=== PATIENT | female | born 1935 | race Caucasian/White ===

== ENCOUNTER 2017-07-26 21:44 | Emergency (ER) | payer MEDICARE, BC ==
[2017-07-26] MEDS ORDERED: Sodium Chloride 0.9% 10 ML Syringe FLUSH PRN (22:20)
[2017-07-26] MEDS ORDERED: Labetalol 100 MG/20 ML MDV IVPUSH ONE ×2 (22:20→23:10)
[2017-07-26] MEDS ORDERED: LORazepam 2 MG/ML MDV IVPUSH ONE (23:10)
[2017-07-26] MEDS ORDERED: Oxymetazoline 0.05% Nasal Spray 15 ML Bottle NAS ONE (23:11)
[2017-07-26] MEDS ORDERED: HYDROmorphone 0.5 MG/0.5 ML Syringe IVPUSH ONE (23:12)
[2017-07-26 23:55] VITALS: BP 145/88
[2017-07-27] MEDS ORDERED: HYDROmorphone 0.5 MG/0.5 ML Syringe IVPUSH ONE (00:14)
--- NOTE | 2017-07-27 00:51 | EDM.PDOC ---
ED HPI GENERAL MEDICAL PROBLEM - General Chief Complaint: ENT Problem Stated Complaint: NOSE BLEED Time Seen by Provider: 07/26/17 22:03 Source of Information: Reports: Patient, RN Notes Reviewed - History of Present Illness INITIAL COMMENTS - FREE TEXT/NARRATIVE: 82-year-old female comes in with severe right nosebleed. This started about 3-1/ 2 hours prior to arrival. Bleeding started on the right side with some backwash to the left as well. She has been unable to stop or control the bleeding at home. She does have history of a lot of major nosebleeds in the past. She states that she did have "surgery" about 3 years ago and since then has not been having much difficulty. She is not on any blood thinners. She does take medication for hypertension. - Related Data Allergies Allergy/AdvReac Type Severity Reaction Status Date / Time amoxicillin [Amoxicillin] Allergy Rash Verified 07/26/17 21:58 codeine Allergy Rash Verified 07/26/17 21:58 [id number]-[id number]-[id number] Reductase Allergy Body Aches Verified 07/26/17 21:58 Inhibitor Home Meds: Home Meds Amitriptyline [Elavil] 10 mg PO BEDTIME 09/27/13 [History] Furosemide [Lasix] 20 mg PO DAILY 09/27/13 [History] Gemfibrozil 600 mg PO BID 09/27/13 [History] Levothyroxine Sodium [Synthroid] 125 mcg PO DAILY 09/27/13 [History] Losartan [Cozaar] 100 mg PO DAILY 09/27/13 [History] Metoprolol Tartrate [Lopressor] 50 mg PO BID 09/27/13 [History] amLODIPine [Norvasc] 5 mg PO DAILY 09/27/13 [History] ALPRAZolam [Xanax] 0.5 mg PO TID 10/08/15 [History] Doxycycline [Vibramycin] 50 mg PO DAILY 10/08/15 [History] oxyCODONE HCl/Acetaminophen [oxyCODONE-Acetaminophen 5-325] 0.5 tab PO Q4HR PRN 10/08/15 [History] Ciclopirox/Ure/Camph/Menth/Euc [Ciclopirox 8% Treatment Kit] 1 applic TOP BID [History] Omeprazole [priLOSEC OTC] 20 mg PO DAILY 07/26/17 [History] oxyCODONE 5 mg PO Q4HR PRN 07/26/17 [History] Cephalexin [IJD: Cephalexin] 500 mg PO .EVERY 8 HOURS #12 cap 07/27/17 [Rx] Past Medical History HEENT History: Reports: Impaired Vision Cardiovascular History: Reports: Hypertension Gastrointestinal History: Reports: 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: Musculoskeletal History: Reports: Arthritis Neurological History: Reports: Headaches, Chronic - Past Surgical History Endocrine Surgical History: Reports: Thyroidectomy Other Musculoskeletal Surgeries/Procedures:: neck fusion c4 and c5 Social & Family History - Tobacco Use Smoking Status *Q: Former Smoker Used Tobacco, but Quit: Yes Month Tobacco Last Used: unk Second Hand Smoke Exposure: No - Caffeine Use Caffeine Use: Reports: Coffee - Alcohol Use Days Per Week of Alcohol Use: 0 Number of Drinks Per Day: 1 Total Drinks Per Week: 0 - Recreational Drug Use Recreational Drug Use: No ED ROS ENT - Review of Systems Review Of Systems: See Below Constitutional: Denies: Fever, Chills HEENT: Reports: Nosebleed. Denies: Throat Pain Respiratory: Denies: Shortness of Breath, Wheezing, Pleuritic Chest Pain Cardiovascular: Denies: Chest Pain GI/Abdominal: Denies: Abdominal Pain, Nausea, Vomiting Musculoskeletal: Reports: No Symptoms Skin: Reports: No Symptoms Neurological: Reports: No Symptoms ED EXAM, ENT - Physical Exam Exam: See Below General Appearance: Anxious, Mild Distress Eye Exam: Bilateral Eye: PERRL Nose: Active Bleeding (Right nares) Mouth/Throat: Other (There is some blood visible posterior pharynx) Head: Atraumatic. No: Facial Swelling Respiratory/Chest: No Respiratory Distress, Lungs Clear, Normal Breath Sounds Cardiovascular: Regular Rate, Rhythm Extremities: Normal Inspection, Normal Range of Motion Neurological: Alert, Oriented, No Motor/Sensory Deficits Skin: Warm, Dry, Normal Color Course - Vital Signs Last Recorded V/S: Last Vital Signs Temp 97.8 F 07/26/17 21:51 Pulse 71 07/26/17 23:54 Resp 97 H 07/26/17 21:51 BP 145/88 H 07/26/17 23:54 Pulse Ox 97 07/26/17 21:51 - Orders/Labs/Meds Orders: Active Orders 24 hr Category Date Time Status Peripheral IV Care [RC] . DIRECTED Care 07/26/17 22:20 Active Peripheral IV Insertion Adult [OM.PC] Stat Oth 07/26/17 22:19 Ordered Meds: Medications Discontinued Medications Generic Name Dose Route Start Last Admin Trade Name Katie PRN Reason Stop Dose Admin Cocaine HCl 4 ml 07/26/17 22:20 07/26/17 22:37 Cocaine Hcl TOP 07/26/17 22:21 4 ml ONETIME ONE Administration Hydromorphone HCl 0.25 mg 07/26/17 23:12 07/26/17 23:22 Dilaudid IVPUSH 07/26/17 23:13 0.25 mg ONETIME ONE Administration Hydromorphone HCl 0.25 mg 07/27/17 00:14 07/27/17 00:19 Dilaudid IVPUSH 07/27/17 00:15 0.25 mg ONETIME ONE Administration Labetalol HCl 20 mg 07/26/17 22:20 07/26/17 22:32 Normodyne IVPUSH 07/26/17 22:21 20 mg ONETIME ONE Administration Protocol Labetalol HCl 20 mg 07/26/17 23:10 07/26/17 23:54 Normodyne IVPUSH 07/26/17 23:11 10 mg ONETIME ONE Administration Protocol Lorazepam 0.25 mg 07/26/17 23:10 07/26/17 23:22 Ativan IVPUSH 07/26/17 23:11 0.25 mg ONETIME ONE Administration Oxymetazoline HCl 5 ml 07/26/17 23:11 07/26/17 23:22 Afrin Original 0.05% Nasal Ayer CARMEN 07/26/17 23:12 1 spray ONETIME ONE Administration Sodium Chloride 10 ml 07/26/17 22:20 07/26/17 22:37 Saline Flush FLUSH 10 ml ASDIRECTED PRN Administration Keep Vein Open - Re-Assessments/Exams Free Text/Narrative Re-Assessment/Exam: 07/27/17 02:26 Blood pressure on arrival was 228/90, subsequent readings as high as well. Therefore she was given labetalol 20 mg IV. Also did take one of her Xanax on arrival. Those meds did help her in that blood pressure did come down into the 140s to 150s systolic. We did work with cotton soaked cocaine solution right nares 2 but that did nothing to slow the bleeding down which did appear to be coming from a more posterior source. Therefore 6.5 cm anterior/posterior nasal balloon was placed. Patient had been also premedicated with 0.25 mg Dilaudid IV and 0.25 mg Ativan IV. This was quite uncomfortable for her initially but then she did start getting more used to that. Blood pressure remained in the 140s to 150s. This plan to leave the balloon in for about 3-1/2 days which will bring her to Monday. It is advised that she return to the ED Monday for removal of the balloon. Discharge instructions as documented. Departure - Departure Time of Disposition: 00:47 Disposition: Home, Self-Care 01 Condition: Fair Clinical Impression: Epistaxis Hypertension Qualifiers: Hypertension type: essential hypertension Qualified Code(s): I10 - Essential ( primary) hypertension - Discharge Information Prescriptions: Cephalexin [IJD: Cephalexin] 500 mg PO .EVERY 8 HOURS #12 cap Instructions: Nosebleed, [id number] Referrals: Janene Kuhn NP [Primary Care Provider] - Forms: ED Department Discharge Additional Instructions: Anterior posterior nasal balloon has been placed to control the bleeding from the right side of your nose. Do not tug or pull on the balloon so as not to dislodge it. Try rest with head elevated above your chest is much as possible. Continue your regular medications. Xanax twice daily recommended to help tolerate the balloon better. oxycodone previously prescribed as needed for discomfort. Cephalexin antibiotic 3 times daily. Start that tomorrow morning and take that through Monday. The balloon should stay in for about 3 days so return to the ED Monday for removal. - My Orders Last 24 Hours: My Active Orders 07/26/17 22:19 Peripheral IV Insertion Adult [OM.PC] Stat 07/26/17 22:20 Peripheral IV Care [RC] . DIRECTED - Assessment/Plan Last 24 Hours: My Active Orders 07/26/17 22:19 Peripheral IV Insertion Adult [OM.PC] Stat 07/26/17 22:20 Peripheral IV Care [RC] . DIRECTED
== END 2017-07-27 01:03 | disposition home or self-care (01) ==
LOC: JD.ED 21:44
DX: R04.0 Epistaxis (principal); I10 Essential (primary) hypertension; K21.9 Gastro-esophageal reflux disease without esophagitis; Z87.891 Personal history of nicotine dependence; Z79.899 Other long term (current) drug therapy; Z79.2 Long term (current) use of antibiotics; Z88.1 Allergy status to other antibiotic agents; Z88.5 Allergy status to narcotic agent; Z88.8 Allergy status to other drugs, medicaments and biological substances
CPT/HCPCS: 30903; 96374; 96375; 96376; 99283-25; A9270-GY; J1170; J2060; J7050

== ENCOUNTER 2017-08-02 07:35 | Emergency (ER) | payer MEDICARE, BC ==
[2017-08-02 07:42] VITALS: BP 190/69
--- NOTE | 2017-08-02 08:59 | EDM.PDOC ---
ED HPI GENERAL MEDICAL PROBLEM - General Chief Complaint: ENT Problem Stated Complaint: NOSEBLEED Time Seen by Provider: 08/02/17 07:47 Source of Information: Reports: Patient History Limitations: Reports: No Limitations - History of Present Illness INITIAL COMMENTS - FREE TEXT/NARRATIVE: The patient presents with a bloody nose. She was seen here last week and a rhino rocket needed to be put in. This morning at 4:30am it started to bleed again. She has had troubles like this before and needed ENT surgery. She is not on any blood thinners. She does have HTN and she took her meds this morning. The bleeding has stopped now. Onset: Sudden Duration: Hour(s): Severity: Moderate Improves with: Reports: None Worsens with: Reports: None Associated Symptoms: Reports: No Other Symptoms - Related Data Allergies Allergy/AdvReac Type Severity Reaction Status Date / Time amoxicillin [Amoxicillin] Allergy Rash Verified 08/02/17 07:42 codeine Allergy Rash Verified 08/02/17 07:42 Gfxktqn-Tuh-Tua Reductase Allergy Body Aches Verified 08/02/17 07:42 Inhibitor Home Meds: Home Meds Amitriptyline [Elavil] 10 mg PO BEDTIME 09/27/13 [History] Furosemide [Lasix] 20 mg PO DAILY 09/27/13 [History] Gemfibrozil 600 mg PO BID 09/27/13 [History] Levothyroxine Sodium [Synthroid] 125 mcg PO DAILY 09/27/13 [History] Losartan [Cozaar] 100 mg PO DAILY 09/27/13 [History] Metoprolol Tartrate [Lopressor] 50 mg PO BID 09/27/13 [History] amLODIPine [Norvasc] 5 mg PO DAILY 09/27/13 [History] ALPRAZolam [Xanax] 0.5 mg PO TID 10/08/15 [History] Doxycycline [Vibramycin] 50 mg PO DAILY 10/08/15 [History] oxyCODONE HCl/Acetaminophen [oxyCODONE-Acetaminophen 5-325] 0.5 tab PO Q4HR PRN 10/08/15 [History] Ciclopirox/Ure/Camph/Menth/Euc [Ciclopirox 8% Treatment Kit] 1 applic TOP BID [History] Omeprazole [priLOSEC OTC] 20 mg PO DAILY 07/26/17 [History] oxyCODONE 5 mg PO Q4HR PRN 07/26/17 [History] Cephalexin [IJD: Cephalexin] 500 mg PO .EVERY 8 HOURS #12 cap 07/27/17 [Rx] Past Medical History HEENT History: Reports: Impaired Vision Cardiovascular History: Reports: Hypertension Gastrointestinal History: Reports: 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: Musculoskeletal History: Reports: Arthritis Neurological History: Reports: Headaches, Chronic - Past Surgical History Endocrine Surgical History: Reports: Thyroidectomy Other Musculoskeletal Surgeries/Procedures:: neck fusion c4 and c5 Social & Family History - Tobacco Use Smoking Status *Q: Never Smoker Used Tobacco, but Quit: Yes Month Tobacco Last Used: unk Second Hand Smoke Exposure: No - Caffeine Use Caffeine Use: Reports: Coffee - Alcohol Use Days Per Week of Alcohol Use: 0 Number of Drinks Per Day: 1 Total Drinks Per Week: 0 - Recreational Drug Use Recreational Drug Use: No ED ROS ENT - Review of Systems Review Of Systems: See Below Constitutional: Reports: No Symptoms HEENT: Reports: Nosebleed Respiratory: Reports: No Symptoms Cardiovascular: Reports: No Symptoms Endocrine: Reports: No Symptoms GI/Abdominal: Reports: No Symptoms : Reports: No Symptoms Musculoskeletal: Reports: No Symptoms ED EXAM, ENT - Physical Exam Exam: See Below Exam Limited By: No Limitations General Appearance: Alert, No Apparent Distress Ears: Normal External Exam Nose: Dried Blood Mouth/Throat: Normal Inspection Head: Atraumatic, Normocephalic Neck: Normal Inspection Respiratory/Chest: No Respiratory Distress ED ENT PROCEDURES - Epistaxis Procedure Indication: Epistaxis Recent anticoagulants/antiplatlets: No Uncontrolled HTN: No Recent septal/nasal surgery: No Site of bleeding: Right Nare Topical Meds: Topical Cocaine Chemical cautery: Silver Nitrate Topical Course - Vital Signs Last Recorded V/S: Last Vital Signs Temp 96.4 F 08/02/17 07:40 Pulse 63 08/02/17 07:40 Resp 16 08/02/17 07:40 BP 190/69 H 08/02/17 07:40 Pulse Ox 96 08/02/17 07:40 - Orders/Labs/Meds Meds: Medications Discontinued Medications Generic Name Dose Route Start Last Admin Trade Name Freq PRN Reason Stop Dose Admin Cocaine HCl 3 ml 08/02/17 07:50 08/02/17 07:55 Cocaine Hcl TOP 08/02/17 07:51 3 ml ONETIME ONE Administration - Re-Assessments/Exams Free Text/Narrative Re-Assessment/Exam: 08/02/17 08:57 There was no active bleeding but there was an area that appears to be the site. I cauterized it and there was no further bleeding. Departure - Departure Time of Disposition: 08:55 Disposition: Home, Self-Care 01 Condition: Good Clinical Impression: Epistaxis - Discharge Information Referrals: Janene Kuhn NP [Primary Care Provider] - Additional Instructions: Use the moisterizer for your nose 2 times per day. Make an appointment for ENT if you continue to have problems. Please return if you are worse.
== END 2017-08-02 09:18 | disposition home or self-care (01) ==
LOC: JD.ED 07:35
DX: R04.0 Epistaxis (principal); I10 Essential (primary) hypertension; Z88.5 Allergy status to narcotic agent; Z88.1 Allergy status to other antibiotic agents; Z79.899 Other long term (current) drug therapy
CPT/HCPCS: 30901; 99282-25; 99283-25

== ENCOUNTER 2017-08-16 21:28 | Emergency (ER) | payer MEDICARE, BC ==
--- NOTE | 2017-08-16 21:44 | EDM.PDOC ---
ED HPI GENERAL MEDICAL PROBLEM - General Chief Complaint: ENT Problem Stated Complaint: bloody nose Time Seen by Provider: 08/16/17 21:43 - History of Present Illness INITIAL COMMENTS - FREE TEXT/NARRATIVE: 82-year-old female presents emergency room with nosebleed. This started roughly 3 hours ago she has not been able to control this at home. Patient is had chronic recurrent problems with her nosebleed she's been in several times recently. She is scheduled to have procedure done this next month and is had a couple of procedures done by ENT in the past. Patient is not on blood thinners she does have hypertension and her blood pressure is elevated at this time. Patient is not having any breathing difficulties or shortness of breath no chest pain chest pressure no nausea no vomiting. - Related Data Allergies Allergy/AdvReac Type Severity Reaction Status Date / Time amoxicillin [Amoxicillin] Allergy Rash Verified 08/16/17 21:38 codeine Allergy Rash Verified 08/16/17 21:38 [id number]-[id number] Reductase Allergy Body Aches Verified 08/16/17 21:38 Inhibitor Home Meds: Home Meds Amitriptyline [Elavil] 10 mg PO BEDTIME 09/27/13 [History] Furosemide [Lasix] 20 mg PO DAILY 09/27/13 [History] Gemfibrozil 600 mg PO BID 09/27/13 [History] Levothyroxine Sodium [Synthroid] 125 mcg PO DAILY 09/27/13 [History] Losartan [Cozaar] 100 mg PO DAILY 09/27/13 [History] Metoprolol Tartrate [Lopressor] 50 mg PO BID 09/27/13 [History] amLODIPine [Norvasc] 5 mg PO DAILY 09/27/13 [History] ALPRAZolam [Xanax] 0.5 mg PO TID 10/08/15 [History] Doxycycline [Vibramycin] 50 mg PO DAILY 10/08/15 [History] oxyCODONE HCl/Acetaminophen [oxyCODONE-Acetaminophen 5-325] 0.5 tab PO Q4HR PRN 10/08/15 [History] Ciclopirox/Ure/Camph/Menth/Euc [Ciclopirox 8% Treatment Kit] 1 applic TOP BID [History] Omeprazole [priLOSEC OTC] 20 mg PO DAILY 07/26/17 [History] oxyCODONE 5 mg PO Q4HR PRN 07/26/17 [History] Cephalexin [IJD: Cephalexin] 500 mg PO .EVERY 8 HOURS #12 cap 07/27/17 [Rx] Past Medical History HEENT History: Reports: Impaired Vision Cardiovascular History: Reports: Hypertension Gastrointestinal History: Reports: 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: Musculoskeletal History: Reports: Arthritis Neurological History: Reports: Headaches, Chronic - Past Surgical History Endocrine Surgical History: Reports: Thyroidectomy Other Musculoskeletal Surgeries/Procedures:: neck fusion c4 and c5 Social & Family History - Tobacco Use Smoking Status *Q: Never Smoker Used Tobacco, but Quit: Yes Month Tobacco Last Used: unk Second Hand Smoke Exposure: No - Caffeine Use Caffeine Use: Reports: Coffee - Alcohol Use Days Per Week of Alcohol Use: 0 Number of Drinks Per Day: 1 Total Drinks Per Week: 0 - Recreational Drug Use Recreational Drug Use: No ED ROS ENT - Review of Systems Review Of Systems: See Below Constitutional: Reports: No Symptoms HEENT: Reports: Nosebleed Respiratory: Reports: No Symptoms Cardiovascular: Reports: No Symptoms GI/Abdominal: Reports: No Symptoms Neurological: Reports: No Symptoms ED EXAM, ENT - Physical Exam Exam: See Below Exam Limited By: No Limitations General Appearance: Alert, No Apparent Distress Eye Exam: Bilateral Eye: Normal Inspection Ears: Normal External Exam, Normal Canal, Hearing Grossly Normal, Normal TMs Nose: Normal Inspection, Normal Mucousa, Other (No active bleeding she has an area that could have been bleeding on her anterior septum on the right side that has a little scab over this area it appears stable at this point no bleeding at this time) Mouth/Throat: Normal Inspection, Normal Gums, Normal Lips, Normal Oropharynx, Normal Teeth, Other (No blood in the posterior pharynx) Head: Atraumatic, Normocephalic Respiratory/Chest: No Respiratory Distress, Lungs Clear, Normal Breath Sounds Cardiovascular: Regular Rate, Rhythm, No Edema, No Murmur Extremities: Normal Inspection, No Pedal Edema Course - Vital Signs Last Recorded V/S: Last Vital Signs Temp 37.0 C 08/16/17 21:36 Pulse 70 08/16/17 22:48 Resp 16 08/16/17 22:48 BP 154/71 H 08/16/17 22:48 Pulse Ox 99 08/16/17 21:36 - Re-Assessments/Exams Free Text/Narrative Re-Assessment/Exam: 08/16/17 22:51 Patient had no acute bleeding by the time I evaluated her. She was watched for some time and continued did not have bleeding she has a potential bleeding site with a scab over it on the right nasal septum anteriorly. She was observed for some time her blood pressure was rechecked and this come down substantially from her admission blood pressure which was a little high. At this point the patient would really like to go home and this is certainly reasonable 08/16/17 22:57 Patient doing well blood pressure has come down she is insistent on going home I will discharge her Departure - Departure Time of Disposition: 22:52 Disposition: Home, Self-Care 01 Clinical Impression: Epistaxis - Discharge Information Referrals: Janene Kuhn NP [Primary Care Provider] - Forms: ED Department Discharge Additional Instructions: Return to emergency room with any questions problems worsening symptoms. Consider taking your losartan at nighttime. See if this helps with her nighttime blood pressure. Follow-up in the clinic later this week for recheck your blood pressure. Follow-up with your doctors appointments as previously scheduled.
[2017-08-16 22:55] VITALS: BP 154/71
== END 2017-08-16 22:57 | disposition home or self-care (01) ==
LOC: JD.ED 21:28
DX: R04.0 Epistaxis (principal); I10 Essential (primary) hypertension; K21.9 Gastro-esophageal reflux disease without esophagitis; Z88.1 Allergy status to other antibiotic agents; Z88.5 Allergy status to narcotic agent; Z88.8 Allergy status to other drugs, medicaments and biological substances; Z79.899 Other long term (current) drug therapy
CPT/HCPCS: 99283

== ENCOUNTER 2017-11-23 10:08 | Emergency (ER) | payer MEDICARE, BC ==
[2017-11-23 10:16] VITALS: BP 159/70
--- NOTE | 2017-11-23 12:07 | EDM.PDOC ---
ED HPI GENERAL MEDICAL PROBLEM - General Chief Complaint: ENT Problem Stated Complaint: NOSEBLEED Time Seen by Provider: 11/23/17 10:17 Source of Information: Reports: Patient History Limitations: Reports: No Limitations - History of Present Illness INITIAL COMMENTS - FREE TEXT/NARRATIVE: The patient presents with epistaxis. She said this started this morning. She had this happen many times before. She had surgery twice. She says her ENT doctor will not do surgery again. She is not on any blood thinners. Onset: Sudden Duration: Hour(s): Improves with: Reports: None Worsens with: Reports: None Associated Symptoms: Reports: No Other Symptoms - Related Data Allergies Allergy/AdvReac Type Severity Reaction Status Date / Time amoxicillin [Amoxicillin] Allergy Rash Verified 11/23/17 10:26 codeine Allergy Rash Verified 11/23/17 10:26 Eaxljxv-Jiv-Xeb Reductase Allergy Body Aches Verified 11/23/17 10:26 Inhibitor Home Meds: Home Meds Amitriptyline [Elavil] 10 mg PO BEDTIME 09/27/13 [History] Furosemide [Lasix] 20 mg PO DAILY 09/27/13 [History] Gemfibrozil 600 mg PO BID 09/27/13 [History] Levothyroxine Sodium [Synthroid] 125 mcg PO DAILY 09/27/13 [History] Losartan [Cozaar] 100 mg PO DAILY 09/27/13 [History] Metoprolol Tartrate [Lopressor] 50 mg PO BID 09/27/13 [History] amLODIPine [Norvasc] 5 mg PO DAILY 09/27/13 [History] ALPRAZolam [Xanax] 0.5 mg PO TID 10/08/15 [History] Doxycycline [Vibramycin] 50 mg PO DAILY 10/08/15 [History] oxyCODONE HCl/Acetaminophen [oxyCODONE-Acetaminophen 5-325] 0.5 tab PO Q4HR PRN 10/08/15 [History] Omeprazole [priLOSEC OTC] 20 mg PO DAILY 07/26/17 [History] Cephalexin [Keflex] 500 mg PO TID #28 capsule 11/23/17 [Rx] Past Medical History HEENT History: Reports: Impaired Vision Cardiovascular History: Reports: Hypertension 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: Musculoskeletal History: Reports: Arthritis Neurological History: Reports: Headaches, Chronic - Past Surgical History Endocrine Surgical History: Reports: Thyroidectomy Other Musculoskeletal Surgeries/Procedures:: neck fusion c4 and c5 Social & Family History - Tobacco Use Smoking Status *Q: Never Smoker Second Hand Smoke Exposure: No - Caffeine Use Caffeine Use: Reports: Coffee - Recreational Drug Use Recreational Drug Use: No ED ROS ENT - Review of Systems Review Of Systems: See Below Constitutional: Reports: No Symptoms HEENT: Reports: Nosebleed Respiratory: Reports: No Symptoms Cardiovascular: Reports: No Symptoms Endocrine: Reports: No Symptoms GI/Abdominal: Reports: No Symptoms : Reports: No Symptoms Musculoskeletal: Reports: No Symptoms ED EXAM, ENT - Physical Exam Exam: See Below Exam Limited By: No Limitations General Appearance: Alert, No Apparent Distress Ears: Normal External Exam Nose: Active Bleeding (Moderate bleeding from the right nare to the anterior septum) Head: Atraumatic, Normocephalic Neck: Normal Inspection Respiratory/Chest: No Respiratory Distress ED ENT PROCEDURES - Epistaxis Procedure Indication: Epistaxis Recent anticoagulants/antiplatlets: No Uncontrolled HTN: No Recent septal/nasal surgery: No Site of bleeding: Right Nare Clearing of clots: Patient Blew Nose, Suction Chemical cautery: Silver Nitrate Topical Anterior Packing: Petrolatum Guaze Strip Course - Vital Signs Last Recorded V/S: Last Vital Signs Temp 98.7 F 11/23/17 10:12 Pulse 67 11/23/17 10:12 Resp 18 11/23/17 10:12 BP 159/70 H 11/23/17 10:12 Pulse Ox 97 11/23/17 10:12 - Re-Assessments/Exams Free Text/Narrative Re-Assessment/Exam: 11/23/17 12:07 I tried to use silver nitrate to control the bleeding but she was bleeding to much. I then packed her nose and it appears to be controlled. Departure - Departure Time of Disposition: 12:10 Disposition: Home, Self-Care 01 Condition: Good Clinical Impression: Epistaxis - Discharge Information Prescriptions: Cephalexin [Keflex] 500 mg PO TID #28 capsule Referrals: Janene Kuhn NP [Primary Care Provider] - Additional Instructions: Leave the packing in for at least 3 days. Take the antibiotic 3 times per day for a week. Please return if you are worse.
== END 2017-11-23 12:36 | disposition home or self-care (01) ==
LOC: JD.ED 10:08
DX: R04.0 Epistaxis (principal); I10 Essential (primary) hypertension; Z79.899 Other long term (current) drug therapy; Z88.1 Allergy status to other antibiotic agents; Z88.5 Allergy status to narcotic agent; Z88.8 Allergy status to other drugs, medicaments and biological substances
CPT/HCPCS: 30901; 30903; 99283; 99283-25

== ENCOUNTER 2017-12-02 19:28 | Emergency (ER) | payer MEDICARE, BC ==
[2017-12-02 19:47] VITALS: BP 188/81
[2017-12-02] MEDS: HYDROmorphone 0.5 MG/0.5 ML SYRINGE IM STA (20:36)
--- NOTE | 2017-12-02 20:46 | EDM.PDOC ---
ED HPI GENERAL MEDICAL PROBLEM - General Chief Complaint: ENT Problem Stated Complaint: BLOODY NOSE SINCE 2PM Time Seen by Provider: 12/02/17 19:39 Source of Information: Reports: Patient History Limitations: Reports: No Limitations - History of Present Illness INITIAL COMMENTS - FREE TEXT/NARRATIVE: The patient presents with right epistaxis. She is status post nasal arterial embolization in 2011 and 2014, but has continued to have nosebleeds, and has been told since that there is nothing further that can be done. She states that she was seen in this ED twice in July, and needed packing both times. She was seen by an ENT in [place], whose name she does not recall, on 11/07/2017, at which time she was told that surgery was not an option due to concerns of stroke. She was prescribed a gel, which she has applied, but states that it has not helped. The patient's PCP is Janene Kuhn. - Related Data Allergies Allergy/AdvReac Type Severity Reaction Status Date / Time amoxicillin [Amoxicillin] Allergy Rash Verified 11/23/17 10:26 codeine Allergy Rash Verified 11/23/17 10:26 Amirupj-Lxh-Fbp Reductase Allergy Body Aches Verified 11/23/17 10:26 Inhibitor Home Meds: Home Meds Amitriptyline [Elavil] 10 mg PO BEDTIME 09/27/13 [History] Furosemide [Lasix] 20 mg PO DAILY 09/27/13 [History] Gemfibrozil 600 mg PO BID 09/27/13 [History] Levothyroxine Sodium [Synthroid] 125 mcg PO DAILY 09/27/13 [History] Losartan [Cozaar] 100 mg PO DAILY 09/27/13 [History] Metoprolol Tartrate [Lopressor] 50 mg PO BID 09/27/13 [History] amLODIPine [Norvasc] 10 mg PO DAILY 09/27/13 [History] ALPRAZolam [Xanax] 0.5 mg PO TID 10/08/15 [History] oxyCODONE HCl/Acetaminophen [oxyCODONE-Acetaminophen 5-325] 0.5 tab PO Q4HR PRN 10/08/15 [History] Omeprazole [priLOSEC OTC] 20 mg PO WEEKLY 07/26/17 [History] Past Medical History HEENT History: Reports: Impaired Vision Cardiovascular History: Reports: Hypertension Gastrointestinal History: Reports: GERD [employer]GUARD History: Reports: Musculoskeletal History: Reports: Arthritis Neurological History: Reports: Headaches, Chronic - Past Surgical History Endocrine Surgical History: Reports: Thyroidectomy Other Musculoskeletal Surgeries/Procedures:: neck fusion c4 and c5 Social & Family History - Tobacco Use Smoking Status *Q: Never Smoker - Caffeine Use Caffeine Use: Reports: Coffee ED ROS ENT - Review of Systems Review Of Systems: ROS reveals no pertinent complaints other than HPI. ED EXAM, ENT - Physical Exam Exam: See Below Exam Limited By: No Limitations General Appearance: Alert, WD/WN Eye Exam: Bilateral Eye: Normal Inspection Ears: Normal External Exam Nose: Active Bleeding (right nostril, posterior, bright red, brisk) Mouth/Throat: Normal Lips Head: Atraumatic, Normocephalic Neck: Normal Inspection, Full Range of Motion Respiratory/Chest: No Respiratory Distress Cardiovascular: Normal Peripheral Pulses, Regular Rate, Rhythm Neurological: Alert, Oriented, No Motor/Sensory Deficits Psychiatric: Normal Affect Skin: Warm, Dry, Intact, Normal Color, No Rash ED ENT PROCEDURES - Epistaxis Procedure Indication: Epistaxis, Uncontrolled Recent anticoagulants/antiplatlets: No Uncontrolled HTN: No Recent septal/nasal surgery: Other (see below) (S/P 2 nasal artery embolization procedures) Site of bleeding: Right Nare, Posterior Clearing of clots: Patient Blew Nose Ice pack to area: No Posterior packing: Long Inflatable Nasal Tampon (7.5 cm RapidRhino) Complications: No Course - Vital Signs Last Recorded V/S: Last Vital Signs Temp 37.4 C 12/02/17 19:43 Pulse 66 12/02/17 19:43 Resp 20 12/02/17 19:43 BP 188/81 H 12/02/17 19:43 Pulse Ox 94 L 12/02/17 19:43 - Orders/Labs/Meds Meds: Medications Discontinued Medications Generic Name Dose Route Start Last Admin Trade Name Freq PRN Reason Stop Dose Admin Hydromorphone HCl 0.5 mg 12/02/17 20:32 12/02/17 20:36 Dilaudid IM 12/02/17 20:33 0.5 mg ONETIME STA Administration - Re-Assessments/Exams Free Text/Narrative Re-Assessment/Exam: 12/02/17 20:29 The patient has what appears to be a right posterior nasal arterial bleed, which will require a balloon. The patient stated that she has had balloons in the past, but that they are very painful when placed, and she asked that she get a pain shot first. That is reasonable, however, the patient also states that she drove herself here. When I explained that she would not be able to receive a narcotic injection and then drive herself home, she stated that it was no big deal, and that the pain shot has hardly any effect. I again explained that that would not be possible. The patient stated that she will call her son to see if he can come and get her. 12/02/17 20:47 The patient's son was willing to come to the ED, therefore I ordered Dilaudid 0.5 mg IM. Several minutes after the patient received the injection, we proceeded with placing a 7.5 cm Rapid Rhino balloon, which the patient tolerated well. I will recheck it in about 10 minutes, as additional air is usually needed to be insufflated. 12/02/17 20:55 Additional air was inflated into the balloon. The bleeding appears to have been successfully stopped. She may return to the ED in 24 hours for balloon removal, or, if she wishes, follow-up with Dr. Saavedra on 12/04/2017. The patient already has oxycodone at home, for pain relief. Departure - Departure Time of Disposition: 21:09 Disposition: Home, Self-Care 01 Condition: Good Clinical Impression: Posterior epistaxis - Discharge Information Instructions: Nosebleed, Adult, [id number] Referrals: Janene Kuhn NP [Primary Care Provider] - Lawrnece Saavedra MD [Ordering Only Provider] - Forms: ED Department Discharge Additional Instructions: You were seen in the emergency room for a recurrent right nosebleed. On examination, your nosebleed was a posterior bleed, arterial. A 7.5 cm Rapid Rhino balloon was placed into your right nostril, successfully stopping the bleeding. You may return to the ER in 24 hours for removal, or follow-up with the ENT Dr. Saavedra, in [place], this coming 12/04/2017. Return to the ER for fever, chills, dizziness or lightheadedness, headache, sore throat, muscle aches, vomiting, diarrhea, or abdominal pain.
== END 2017-12-02 21:38 | disposition home or self-care (01) ==
LOC: JD.ED 19:28
DX: R04.0 Epistaxis (principal); I10 Essential (primary) hypertension; K21.9 Gastro-esophageal reflux disease without esophagitis; Z79.899 Other long term (current) drug therapy
CPT/HCPCS: 30905; 96372; 99283; J1170; 30903; 99282

== ENCOUNTER 2018-11-23 16:49 | Emergency (ER) | payer MEDICARE, BC ==
[2018-11-23 17:24] VITALS: BP 174/74
[2018-11-23] MEDS ORDERED: Sodium Chloride 0.9% 10 ML Syringe FLUSH PRN (17:42)
--- NOTE | 2018-11-23 17:44 | EDM.PDOC ---
ED HPI GENERAL MEDICAL PROBLEM - General Chief Complaint: Neck Problem Stated Complaint: ABNORMAL MRI SENT BY DR OLSON Time Seen by Provider: 11/23/18 17:25 Source of Information: Reports: Patient History Limitations: Reports: No Limitations - History of Present Illness INITIAL COMMENTS - FREE TEXT/NARRATIVE: Patient is a 83-year-old female with a history of severe cervical stenosis infusion to C5 and C6 that took place greater than 10 years ago. She states over the past month she's been experiencing increasing discomfort to the left side of her neck, increased frequency of headaches, and dizzy spells with looking down. She was evaluated by a chiropractor who has utilized acupuncture 2 over the past 2 weeks with no resolution. She states she's been more dizzy since being evaluated by the chiropractor. There were no adjustments made due to her history of cervical spinal stenosis and confusion. She was seen by her PCP to which ordered MRI of the neck and brain. Results came back today with concerns for infection thus patient was instructed to come to the ED for further evaluation. Patient states the headaches are intermittent often relieved with taking the alprazolam and [place]o. Headaches usually start at the base of her skull and wraparound to various parts of her head. They're usually constant. There is no vision changes noted. She has noticed a decreased range of motion with turning her head left. There has been no documented fever, chills , sore throat, ear pain, chest pain, short of breath, cough, or any focal neurological deficits. Neck Pain Score (Numeric/FACES): 7 Headache Pain Score (Numeric/FACES): 7 - Related Data Allergies Allergy/AdvReac Type Severity Reaction Status Date / Time amoxicillin [Amoxicillin] Allergy Rash Verified 07/25/18 08:11 codeine Allergy Rash Verified 07/25/18 08:11 Janeetc-Fkb-Msg Reductase Allergy Body Aches Verified 07/25/18 08:11 Inhibitor Home Meds: Home Meds Amitriptyline [Elavil] 10 mg PO BEDTIME 09/27/13 [History] Furosemide [Lasix] 20 mg PO DAILY 09/27/13 [History] Gemfibrozil 600 mg PO BID 09/27/13 [History] Levothyroxine Sodium [Synthroid] 125 mcg PO DAILY 09/27/13 [History] Losartan [Cozaar] 100 mg PO DAILY 09/27/13 [History] Metoprolol Tartrate [Lopressor] 50 mg PO BID 09/27/13 [History] amLODIPine [Norvasc] 10 mg PO DAILY 09/27/13 [History] ALPRAZolam [Xanax] 0.5 mg PO TID 10/08/15 [History] oxyCODONE HCl/Acetaminophen [oxyCODONE-Acetaminophen 5-325] 0.5 tab PO Q4HR PRN 10/08/15 [History] Omeprazole [priLOSEC OTC] 20 mg PO DAILY 07/26/17 [History] Potassium Chloride [Klor-Con M20] 40 meq PO QAM #10 tab.er 11/23/18 [Rx] Past Medical History HEENT History: Reports: Epistaxis, Impaired Vision Cardiovascular History: Reports: Hypertension Gastrointestinal History: Reports: GERD [employer] CH[employer] INTERN History: Reports: Musculoskeletal History: Reports: Arthritis Neurological History: Reports: Headaches, Chronic Psychiatric History: Reports: Anxiety, Depression Endocrine/Metabolic History: Reports: Hypothyroidism - Past Surgical History HEENT Surgical History: Reports: Other (See Below) Endocrine Surgical History: Reports: Thyroidectomy Neurological Surgical History: Reports: C-Spine Social & Family History - Tobacco Use Smoking Status *Q: Never Smoker - Caffeine Use Caffeine Use: Reports: Coffee, Soda - Recreational Drug Use Recreational Drug Use: No - Living Situation & Occupation Occupation: Retired ED ROS GENERAL - Review of Systems Review Of Systems: ROS reveals no pertinent complaints other than HPI. - Physical Exam Exam: See Below Exam Limited By: No Limitations General Appearance: Alert, WD/WN, No Apparent Distress Eye Exam: Bilateral Eye: EOMI, Nystagmus (None noted), PERRL, Proptosis (None noted) Ears: Normal External Exam, Normal Canal, Hearing Grossly Normal, Normal TMs Nose: Normal Inspection, Normal Mucosa, No Blood Throat/Mouth: Normal Inspection, Normal Oropharynx, Normal Voice, No Airway Compromise Head Exam: Atraumatic, Normocephalic Neck: Normal Inspection, Supple, Tender Lateral (Left lateral along the base of the neck and shoulder. No midline cervical neck pain. Decreased range of motion with turning her head left. Able to him place her chin to the chest with no difficulties.) Respiratory/Chest: No Respiratory Distress, Lungs Clear, Normal Breath Sounds, No Accessory Muscle Use Cardiovascular: Normal Peripheral Pulses, Regular Rate, Rhythm, Systolic Murmur GI/Abdominal: Normal Bowel Sounds, Soft, Non-Tender, No Organomegaly, No Distention Neuro Exam (Abbreviated): Alert, Oriented, CN II-XII Intact, Normal Cognition, No Motor/Sensory Deficits, Other (When looking down patient does become dizzy.) Back Exam: Normal Inspection, Full Range of Motion Extremities: Normal Inspection, Non-Tender, No Pedal Edema Psychiatric: Normal Affect, Normal Mood Skin Exam: Warm, Dry, Intact, Normal Color Course - Vital Signs Last Recorded V/S: Last Vital Signs Temp 98.0 F 11/23/18 17:23 Pulse 65 11/23/18 17:23 Resp 20 11/23/18 17:23 BP 174/74 H 11/23/18 17:23 Pulse Ox 96 11/23/18 17:23 - Orders/Labs/Meds Orders: Active Orders 24 hr Category Date Time Status Peripheral IV Care [RC] . DIRECTED Care 11/23/18 17:42 Active Peripheral IV Insertion Adult [OM.PC] Routine Oth 11/23/18 17:42 Ordered Labs: Laboratory Tests 11/23/18 11/23/18 11/23/18 Range/Units 17:50 17:50 17:50 WBC 5.97 (3.98-10.04) K/mm3 RBC 4.55 (3.98-5.22) M/mm3 Hgb 13.1 (11.2-15.7) gm/L Hct 39.0 (34.1-44.9) % MCV 85.7 D (79.4-94.8) fl MCH 28.8 (25.6-32.2) pg MCHC 33.6 (32.2-35.5) g/dl RDW Std Deviation 48.3 H (36.4-46.3) fL Plt Count 205 (182-369) K/mm3 MPV 10.7 (9.4-12.3) fl Neutrophils % (Manual) 48 (40-60) % Band Neutrophils % 0 (0-10) % Lymphocytes % (Manual) 46 H (20-40) % Atypical Lymphs % 0 % Monocytes % (Manual) 1 L (2-10) % Eosinophils % (Manual) 4 (0.7-5.8) % Basophils % (Manual) 1 (0.1-1.2) Platelet Estimate Adequate Plt Morphology Comment Normal RBC Morph Comment Normal ESR 53 H (0-20) mm/hr Sodium 140 (136-145) mEq/L Potassium 2.8 L (3.5-5.1) mEq/L Chloride 101 (98-107) mEq/L Carbon Dioxide 28 (21-32) mEq/L Anion Gap 13.8 (5-15) BUN 9 (7-18) mg/dL Creatinine 0.8 (0.55-1.02) mg/dL Est Cr Clr Drug Dosing 38.80 mL/min Estimated GFR (MDRD) > 60 (>60) mL/min BUN/Creatinine Ratio 11.3 L (14-18) Glucose 137 H (83-115) mg/dL Calcium 9.2 (8.5-10.1) mg/dL Total Bilirubin 0.5 (0.2-1.0) mg/dL AST 28 (15-37) U/L ALT 26 (14-59) U/L Alkaline Phosphatase 115 (46-116) U/L C-Reactive Protein < 0.2 (<1.0) mg/dL Total Protein 8.0 (6.4-8.2) g/dl Albumin 3.8 (3.4-5.0) g/dl Globulin 4.2 gm/dL Albumin/Globulin Ratio 0.9 L (1-2) Meds: Medications Discontinued Medications Generic Name Dose Route Start Last Admin Trade Name Freq PRN Reason Stop Dose Admin Potassium Chloride 60 meq 11/23/18 18:53 11/23/18 19:04 Potassium Chloride Solution PO 11/23/18 18:54 60 meq ONETIME ONE Administration Sodium Chloride 10 ml 11/23/18 17:42 11/23/18 18:40 Saline Flush FLUSH 10 ml ASDIRECTED PRN Administration Keep Vein Open - Re-Assessments/Exams Free Text/Narrative Re-Assessment/Exam: Reviewed MRI of the neck impression 11/23/2018: Extensive soft tissue edema and inflammatory change in the right lateral paravertebral soft tissues and musculature from C6-T2 extending into posterior intercostal spaces with no definite focal abscess. This does not extend anteriorly at the levels of C7 and T1 in the prevertebral space. Findings could be infectious with phlegmon, posttraumatic, or inflammatory. No evidence of osteomyelitis or discitis. Patient does not have anterior cervical fusion hardware at C5-6. Prominent disc osteophyte complex C5 through 6 with central protrusion indenting the thecal sac and cervical cord with no myopathy. Multilevel mild to moderate neural foraminal narrowing as described in the detail at each level above. Reviewed MRI of the brain 11/23/2018 impression: No acute findings or definite MR explanation for dizziness. 1 cm extra axial lesion about the left parietal lobe most compatible with a meningioma. Currently patient's vital signs are stable. She is afebrile. I will obtain basic labs including CBC, chem 14, ESR, and CRP. Labs reviewed: CBC was essentially normally. CMP indicated a potassium level of 2.8. CRP WNL. ESR 53. Ordered 60 units of potassium po. [address] Bowen Neurosurgeon with [facility]. He did review the images and does not believe with essentially normal labs that any concerns for infection are warranted at this time. This could be a chronic inflammation from her surgery. He recommends interval MRI in 10 days to see if this worsens. If for any reason patient does develop any worsening symptoms the patient needs to be evaluated to determine course of treatment. I did discuss the lab values and also discussion with Dr. Bowen with the patient. She agrees with plan. She voiced her understanding and has no further questions or concerns. Return precautions were discussed with the patient. Departure - Departure Time of Disposition: 18:55 Disposition: Home, Self-Care 01 Condition: Good Clinical Impression: Hypokalemia, Inflammation of soft tissue, Cervical neck pain with evidence of disc disease - Discharge Information Prescriptions: Potassium Chloride [Klor-Con M20] 40 meq PO QAM #10 tab.er Instructions: Hypokalemia, Potassium Content of Foods Referrals: Janene Kuhn NP [Primary Care Provider] - Forms: ED Department Discharge Additional Instructions: Please followup with PCP in the next 3 to 5 days for reevaluation and to repeat blood work to check potassium level. PCP can order repeat MRI of the neck in 10 days to evaluate for any worsening of soft tissue swelling. Please take the potassium supplements as prescribed. Continue taking all home medications as prescribed. Please return to the ED for any new or worsening symptoms. - My Orders Last 24 Hours: My Active Orders 11/23/18 17:42 Peripheral IV Care [RC] . DIRECTED Peripheral IV Insertion Adult [OM.PC] Routine - Assessment/Plan Last 24 Hours: My Active Orders 11/23/18 17:42 Peripheral IV Care [RC] . DIRECTED Peripheral IV Insertion Adult [OM.PC] Routine
[2018-11-23] MEDS ORDERED: Potassium Chloride 10% 20 MEQ/15 ML Soln 15 ML UD Cup PO ONE (18:53)
== END 2018-11-23 19:32 | disposition home or self-care (01) ==
LOC: JD.ED 16:49
DX: M50.90 Cervical disc disorder, unspecified, unspecified cervical region (principal); E87.6 Hypokalemia; L08.9 Local infection of the skin and subcutaneous tissue, unspecified; I10 Essential (primary) hypertension; K21.9 Gastro-esophageal reflux disease without esophagitis; M19.90 Unspecified osteoarthritis, unspecified site; E03.9 Hypothyroidism, unspecified; F41.9 Anxiety disorder, unspecified; F32.9 Major depressive disorder, single episode, unspecified; Z79.899 Other long term (current) drug therapy; Z88.1 Allergy status to other antibiotic agents; Z88.5 Allergy status to narcotic agent; Z88.8 Allergy status to other drugs, medicaments and biological substances
CPT/HCPCS: 36415; 80053; 85007; 85027; 85652; 86140; 99284; A9270; 99283

== ENCOUNTER 2019-11-15 02:15 | Emergency (ER) | payer MEDICARE, BC ==
[2019-11-15] MEDS ORDERED: Metoclopramide 10 MG/2 ML SDV IVPUSH ONE (02:24)
[2019-11-15] MEDS ORDERED: HYDROmorphone 0.5 MG/0.5 ML Syringe IVPUSH ONE (02:24)
[2019-11-15 02:25] VITALS: BP 172/43; PULSE 84
--- NOTE | 2019-11-15 02:26 | EDM.PDOC ---
ED HPI GENERAL MEDICAL PROBLEM - General Chief Complaint: General Stated Complaint: [facility] Time Seen by Provider: 11/15/19 02:21 Source of Information: Reports: Patient, EMS History Limitations: Reports: No Limitations - History of Present Illness INITIAL COMMENTS - FREE TEXT/NARRATIVE: 84-year-old female attends the ED per [facility] complaining of severe left-sided chest pain with a very strong pleuritic component. Patient states that 3 days ago she got tripped up by stepping in a hole that caused her to fall onto her left side. Her left arm and elbow jammed into her left lower ribs. The fall did not the wind out of her. She states she may have hit her head but she has no nausea vomiting since then. Tonight the pain just intensified in her left anterior chest to the point that she cannot sleep and she has splinting respirations. She was started on oxycodone 5/325 mg tabs yesterday for pain relief but finds that they were not helping. She feels abdominally bloated and distended but I think this is secondary to aerophagia as she is breathing fairly fast. Medics did not give her any medication. Onset: Sudden Onset Date: 11/12/19 Onset Time: 14:00 Duration: Day(s):, Getting Worse Location: Reports: Chest (Left anterior lateral chest pain) Quality: Reports: Ache, Sharp, Stabbing ( strong pleuritic pleuritic component) Severity: Severe Improves with: Reports: None (9 and a 10) Worsens with: Reports: Other Context: Reports: Trauma (She got tripped up and fell after stepping in a hole falling on her left side injuring her ribs 3 days ago). Denies: Activity, Exercise (Admit and breathing and coughing make it much worse), Lifting, Sick Contact Associated Symptoms: Reports: No Other Symptoms, Chest Pain, Malaise, Nausea/ Vomiting, Shortness of Breath (Splinting respirations). 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, Other (see below) (Started on oxycodone 10/26/2024 yesterday) Chest Pain Score (Numeric/FACES): 7 - Related Data Allergies Allergy/AdvReac Type Severity Reaction Status Date / Time amoxicillin [Amoxicillin] Allergy Severe Rash Verified 11/15/19 02:25 codeine Allergy Severe Rash Verified 11/15/19 02:25 Qivhnah-Ael-Bpt Reductase Allergy Severe Body Aches Verified 11/15/19 02:25 Inhibitor Home Meds: Home Meds Amitriptyline [Elavil] 10 mg PO BEDTIME 09/27/13 [History] Furosemide [Lasix] 40 mg PO DAILY 09/27/13 [History] Gemfibrozil 600 mg PO BID 09/27/13 [History] Levothyroxine Sodium [Synthroid] 125 mcg PO DAILY 09/27/13 [History] Losartan [Cozaar] 100 mg PO DAILY 09/27/13 [History] Metoprolol Tartrate [Lopressor] 50 mg PO BID 09/27/13 [History] amLODIPine [Norvasc] 10 mg PO DAILY 09/27/13 [History] ALPRAZolam [Xanax] 0.5 mg PO QID 10/08/15 [History] Omeprazole [priLOSEC OTC] 20 mg PO DAILY 07/26/17 [History] Potassium Chloride [Klor-Con M20] 40 meq PO QAM #10 tab.er 11/23/18 [Rx] Denosumab [Prolia] 60 mg .XX ASDIRECTED 11/15/19 [History] oxyCODONE 5 mg PO Q4H PRN 11/15/19 [History] predniSONE [Prednisone] 20 mg PO BID #10 tablet 11/15/19 [Rx] Past Medical History HEENT History: Reports: Epistaxis, Impaired Vision Cardiovascular History: Reports: Hypertension Gastrointestinal History: Reports: GERD 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: Musculoskeletal History: Reports: Arthritis Neurological History: Reports: Headaches, Chronic Psychiatric History: Reports: Anxiety, Depression Endocrine/Metabolic History: Reports: Hypothyroidism, Osteopenia, Osteoporosis - Past Surgical History HEENT Surgical History: Reports: Other (See Below) Endocrine Surgical History: Reports: Thyroidectomy Neurological Surgical History: Reports: C-Spine Social & Family History - Caffeine Use Caffeine Use: Reports: Coffee, Soda - Living Situation & Occupation Occupation: Retired ED ROS GENERAL - Review of Systems Review Of Systems: See Below Constitutional: Reports: Weakness, Fatigue, Decreased Appetite. Denies: Fever, Chills, Malaise HEENT: Reports: Glasses Respiratory: Reports: Shortness of Breath, Pleuritic Chest Pain. Denies: Wheezing, Cough, Sputum, Hemoptysis Cardiovascular: Reports: Chest Pain (Left lateral anterior chest pain since fall 3 days ago. Getting worse over the last 12 hours), Dyspnea on Exertion. Denies: Edema, Lightheadedness, Orthopnea, Palpitations Endocrine: Reports: Fatigue GI/Abdominal: Reports: Abdominal Pain (More of an abdominal bloat pressure discomfort in the epigastrium which I believe is due to aerophagia.) : Reports: Frequency, Incontinence Musculoskeletal: Reports: Shoulder Pain ( These hips neck and back at times), Joint Pain (Both urge and stress components.) Skin: Reports: Bruising Neurological: Reports: No Symptoms Psychiatric: Reports: No Symptoms Hematologic/Lymphatic: Reports: No Symptoms Immunologic: Reports: No Symptoms ED EXAM, GENERAL - Physical Exam Exam: See Below Exam Limited By: No Limitations General Appearance: Alert, Moderate Distress, Other (Peers to be in a good deal of pain. Splinting respirations. Temperature is 37.7 with a heart rate of 84 respiratory was 19 BP elevated 172/43 O2 sats 91% on room air) Eye Exam: Bilateral Eye: Normal Inspection (No blepharal pallor.) Throat/Mouth: Normal Inspection, Normal Lips, Normal Oropharynx Head: Atraumatic, Normocephalic, Other (No outward signs of any head or facial trauma) Neck: Limited Range of Motion, Tender Lateral (She states that she has chronic cervical neck pain with some known). No: Carotid Bruit, Lymphadenopathy (L) ( stenosis with referred pain into both upper extremities worse on the left side.) , Lymphadenopathy (R) Respiratory/Chest: Lungs Clear, Respiratory Distress, Decreased Breath Sounds ( Mild decreased breath sounds to both lower lung ash), Splinting (Moderate respiratory distress with splinting respirations on the left side), Other ( Ecchymoses on the left anterior chest wall rib 5. Very tender to palpation ribs 5678 and 9 in the anterior ). No: Rales, Rhonchi, Wheezing Cardiovascular: Normal Peripheral Pulses (axillary line.), Regular Rate, Rhythm , No Edema, No Gallop, No Murmur, No Rub Peripheral Pulses: 1+: Posterior Tibial (L), Posterior Tibial (R), Dorsalis Pedis (L), Dorsalis Pedis (R), 3+: Carotid (L), Carotid (R) GI/Abdominal: Normal Bowel Sounds, Soft ( due to aerophagia.), Distended (Ended intubated percussion in the epigastrium), Guarding, Tender, Other (Left shoulder tip pain.). No: Rigid (Fairly tender however in the left upper quadrant of the abdomen with mild guarding.), Rebound Back Exam: Normal Inspection, Decreased Range of Motion, Other (Tenderness left posterior lateral ribs without any bruises or abrasions appreciated.). No: CVA Tenderness (L), CVA Tenderness (R) Extremities: Other (Arthritic changes in both hips both knees.) Neurological: Alert, Oriented, CN II-XII Intact, Normal Cognition Psychiatric: Anxious, Other Skin Exam: Warm, Dry (Good deal of pain.), Intact, Normal Color, No Rash EKG INTERPRETATION EKG Date: 11/15/19 Time: 02:29 Rhythm: NSR Rate (Beats/Min): 80 [place]: LAD-Left [place] Deviation P-Wave: Enlarged (-31 degrees biatrial enlargement.) QRS: Other (There is a nonspecific intraventricular conduction delay. There is initial poor R wave progression with late R wave transition. Left ventricular hypertrophy with strain pattern.) QT: Normal EKG Interpretation Comments: Abnormal ECG Course - Vital Signs Last Recorded V/S: Last Vital Signs Temp 37.7 C 11/15/19 02:18 Pulse 84 11/15/19 02:18 Resp 19 11/15/19 02:18 BP 172/43 H 11/15/19 02:18 Pulse Ox 91 L 11/15/19 02:18 - Orders/Labs/Meds Orders: Active Orders 24 hr Category Date Time Status EKG Documentation Completion [RC] STAT Care 11/15/19 02:21 Active Chest wo Cont [CT] Stat Exams 11/15/19 02:22 Taken Sodium Chloride 0.9% [Normal Saline] 1,000 ml Med 11/15/19 02:30 Active IV ASDIRECTED dexAMETHasone Med 11/15/19 04:01 Once 8 mg PO ONETIME ONE Medication Orders Sodium Chloride (Normal Saline) 1,000 mls @ 100 mls/hr IV ASDIRECTED JERMAIN Last Admin: 11/15/19 02:35 Dose: 100 mls/hr Labs: Laboratory Tests 11/15/19 11/15/19 11/15/19 Range/Units 02:30 02:30 02:30 WBC 12.49 H (3.98-10.04) K/mm3 RBC 4.34 (3.98-5.22) M/mm3 Hgb 12.9 (11.2-15.7) gm/dl Hct 39.4 (34.1-44.9) % MCV 90.8 D (79.4-94.8) fl MCH 29.7 (25.6-32.2) pg MCHC 32.7 (32.2-35.5) g/dl RDW Std Deviation 44.7 (36.4-46.3) fL Plt Count 359 D (182-369) K/mm3 MPV 10.2 (9.4-12.3) fl Neut % (Auto) 75.0 H (34.0-71.1) % Lymph % (Auto) 13.0 L (19.3-51.7) % Bertie % (Auto) 9.4 (4.7-12.5) % Eos % (Auto) 2.1 (0.7-5.8) Baso % (Auto) 0.2 (0.1-1.2) % Neut # (Auto) 9.38 H (1.56-6.13) K/mm3 Lymph # (Auto) 1.62 (1.18-3.74) K/mm3 Bertie # (Auto) 1.17 H (0.24-0.36) K/mm3 Eos # (Auto) 0.26 (0.04-0.36) K/mm3 Baso # (Auto) 0.02 (0.01-0.08) K/mm3 Manual Slide Review Abnormal smear PT 10.9 (9.7-12.0) SECONDS INR 1.00 APTT 33 H (22-31) SECONDS Sodium 136 (136-145) mEq/L Potassium 3.4 L (3.5-5.1) mEq/L Chloride 97 L (98-107) mEq/L Carbon Dioxide 29 (21-32) mEq/L Anion Gap 13.4 (5-15) BUN 12 (7-18) mg/dL Creatinine 0.9 (0.55-1.02) mg/dL Est Cr Clr Drug Dosing 32.23 mL/min Estimated GFR (MDRD) 59 (>60) mL/min BUN/Creatinine Ratio 13.3 L (14-18) Glucose 127 H (83-115) mg/dL Calcium 9.6 (8.5-10.1) mg/dL Magnesium 1.7 L (1.8-2.4) mg/dl Total Bilirubin 0.6 (0.2-1.0) mg/dL AST 19 (15-37) U/L ALT 34 (14-59) U/L Alkaline Phosphatase 146 H (46-116) U/L CK-MB (CK-2) < 0.5 (0-3.6) ng/ml Troponin I < 0.017 (0.00-0.056) ng/mL C-Reactive Protein 0.9 (<1.0) mg/dL NT-Pro-B Natriuret Pep (0-450) pg/mL Total Protein 8.6 H (6.4-8.2) g/dl Albumin 4.0 (3.4-5.0) g/dl Globulin 4.6 gm/dL Albumin/Globulin Ratio 0.9 L (1-2) 11/15/19 Range/Units 02:30 WBC (3.98-10.04) K/mm3 RBC (3.98-5.22) M/mm3 Hgb (11.2-15.7) gm/dl Hct (34.1-44.9) % MCV (79.4-94.8) fl MCH (25.6-32.2) pg MCHC (32.2-35.5) g/dl RDW Std Deviation (36.4-46.3) fL Plt Count (182-369) K/mm3 MPV (9.4-12.3) fl Neut % (Auto) (34.0-71.1) % Lymph % (Auto) (19.3-51.7) % Bertie % (Auto) (4.7-12.5) % Eos % (Auto) (0.7-5.8) Baso % (Auto) (0.1-1.2) % Neut # (Auto) (1.56-6.13) K/mm3 Lymph # (Auto) (1.18-3.74) K/mm3 Bertie # (Auto) (0.24-0.36) K/mm3 Eos # (Auto) (0.04-0.36) K/mm3 Baso # (Auto) (0.01-0.08) K/mm3 Manual Slide Review PT (9.7-12.0) SECONDS INR APTT (22-31) SECONDS Sodium (136-145) mEq/L Potassium (3.5-5.1) mEq/L Chloride (98-107) mEq/L Carbon Dioxide (21-32) mEq/L Anion Gap (5-15) BUN (7-18) mg/dL Creatinine (0.55-1.02) mg/dL Est Cr Clr Drug Dosing mL/min Estimated GFR (MDRD) (>60) mL/min BUN/Creatinine Ratio (14-18) Glucose (83-115) mg/dL Calcium (8.5-10.1) mg/dL Magnesium (1.8-2.4) mg/dl Total Bilirubin (0.2-1.0) mg/dL AST (15-37) U/L ALT (14-59) U/L Alkaline Phosphatase (46-116) U/L CK-MB (CK-2) (0-3.6) ng/ml Troponin I (0.00-0.056) ng/mL C-Reactive Protein (<1.0) mg/dL NT-Pro-B Natriuret Pep 141 (0-450) pg/mL Total Protein (6.4-8.2) g/dl Albumin (3.4-5.0) g/dl Globulin gm/dL Albumin/Globulin Ratio (1-2) Meds: Medications Generic Name Dose Route Start Last Admin Trade Name Freq PRN Reason Stop Dose Admin Sodium Chloride 1,000 mls @ 100 mls/hr 11/15/19 02:30 11/15/19 02:35 Normal Saline IV 100 mls/hr ASDIRECTED JERMAIN Administration Discontinued Medications Generic Name Dose Route Start Last Admin Trade Name Freq PRN Reason Stop Dose Admin Hydromorphone HCl 0.5 mg 11/15/19 02:24 11/15/19 02:38 Dilaudid IVPUSH 11/15/19 02:25 0.5 mg ONETIME ONE Administration Metoclopramide HCl 5 mg 11/15/19 02:24 11/15/19 02:36 Reglan IVPUSH 11/15/19 02:25 5 mg ONETIME ONE Administration - Radiology Interpretation Free Text/Narrative:: 84-year-old female presents to the ED per [facility] due to severe left -sided chest pain. Head is very strong pleuritic component to the pain. She reports falling 3 days ago landing hard on the left side of her chest with her elbow coming him and hitting her in the ribs. And knocked the wind out of her. She states she stepped in a hole in the asphalt causing her to fall. Since that time she has had left rib pain but it is intensified immensely over the last 6 hours. Has any cough or sputum production denies any hemoptysis. Air entry is equal to both lung ash. No subcutaneous emphysema is palpable crepitus is slightly palpable ribs 5 ,6 and 7 left chest wall. Plan normal saline 100 mils per hour. Reglan 5 mg IV with Dilaudid 0.5 mg IV for pain relief. She will have CT of the chest so that I can visualize his spleen and kidney on the left side as well. She is also terribly osteopenic and fractured ribs will be difficult to see with normal films. Teen labs including cardiac markers to be done. - Re-Assessments/Exams Free Text/Narrative Re-Assessment/Exam: 11/15/19 03:17 Labs reveal an elevated white count of 12.49 with 75% neutrophils. Slide shows slight toxic granulation present in the neutrophils with less than 5% bands. It shows adequate and moderate large platelets as well. Hemoglobin is 12.9 with hematocrit of 39.4. MCV is 90.8.. Platelets are 3 and 59,000. PT is 10.9 with an INR of 1.0. PTT is 33. BNP is 141 11/15/19 03:29 Sodium is 136 with potassium slightly low at 3.4. Chloride 97 with a bicarb of 29. Anion gap is 13.4. BUN is 12. Creatinine is 0.9. GFR is greater than 59. Glucose 127 with a calcium of 9.6. Magnesium slightly low at 1.7. Liver function is normal. Alk phosphatase 146 slightly elevated CK-MB is less than 0.5 troponin I is less than 0.017. C-reactive protein is 0.9. BNP is 141. Total protein is 8.6 slightly elevated with an albumin fraction of 4.0. 11/15/19 03:29 CT chest completed without contrast. It reveals no pneumothorax and no hemothorax or pulmonary contusions. No rib fractures are identified. Cardiac silhouette is slightly enlarged. There is calcification in the aorta. Slight aneurysmal dilatation of the thoracic aorta less than 3 cm. Portions of the upper abdomen are visualized. Small hiatal hernia appreciated. Homogeneous liver with any without any intraductal dilatation. Gallbladder contains numerous small gallstones. Spleen and kidney on the left side appear to be within normal limits. Again no reason for pleuritic chest pain other than recent fall and contusion. Appears to be secondary to inflammation without any hemothorax. Cussed the findings with the patient. I am going to try and reduce her inflammation with steroids. Dexamethasone 8 mg will be given through the ED tonight. Then she be placed on prednisone 20 mg twice daily for the next 6 days. Uses oxycodone 5/325 mg almost every 4 hours due to his her severe cervical neck pain with spinal stenosis. Departure - Departure Time of Disposition: 04:04 Disposition: Home, Self-Care 01 Condition: Fair Clinical Impression: Contusion of chest wall with intact skin, Pleurisy, Cervical neck pain with evidence of disc disease - Discharge Information *PRESCRIPTION DRUG MONITORING PROGRAM REVIEWED*: Not Applicable *COPY OF PRESCRIPTION DRUG MONITORING REPORT IN PATIENT GUILLERMINA: Not Applicable Prescriptions: predniSONE [Prednisone] 20 mg PO BID #10 tablet Instructions: Rib Contusion, Pleurisy, Shop-hp-Tlms Referrals: Janene Kuhn NP [Primary Care Provider] - Forms: ED Department Discharge Sepsis Event Note - Focused Exam Vital Signs: Vital Signs Temp Pulse Resp BP Pulse Ox 11/15/19 02:18 37.7 C 84 19 172/43 H 91 L Date Exam was Performed: 11/15/19 Time Exam was Performed: 04:02 - My Orders Last 24 Hours: My Active Orders 11/15/19 02:21 EKG Documentation Completion [RC] STAT 11/15/19 02:22 Chest wo Cont [CT] Stat 11/15/19 02:30 Sodium Chloride 0.9% [Normal Saline] 1,000 ml IV ASDIRECTED 11/15/19 04:01 dexAMETHasone 8 mg PO ONETIME ONE - Assessment/Plan Last 24 Hours: My Active Orders 11/15/19 02:21 EKG Documentation Completion [RC] STAT 11/15/19 02:22 Chest wo Cont [CT] Stat 11/15/19 02:30 Sodium Chloride 0.9% [Normal Saline] 1,000 ml IV ASDIRECTED 11/15/19 04:01 dexAMETHasone 8 mg PO ONETIME ONE
[2019-11-15] MEDS ORDERED: Sodium Chloride 0.9% 1,000 ML IV SCH (02:30)
[2019-11-15] MEDS ORDERED: Dexamethasone 4 MG Tab PO ONE (04:01)
--- NOTE | 2019-11-15 09:54 | CT ---
CT chest Technique: Multiple axial sections were obtained from above the dome of the diaphragm inferiorly through the lung bases. Intravenous contrast was not utilized. Comparison: Prior chest x-ray of 05/18/15 is available. Findings: Several calcified gallstones are seen within the gallbladder. No pericardial thickening is seen. Minimal coronary artery calcification is seen. Atherosclerotic calcification seen within the thoracic aorta. No aneurysm is seen. Mediastinum shows no adenopathy or hematoma. No axillary adenopathy is seen. Slight increased density is seen within both lung bases most likely due to atelectasis. No acute pulmonary contusions are seen. No pleural effusions or pneumothorax is appreciated. Bone window settings were reviewed. Scattered degenerative change noted within the spine and within the left shoulder as well as within the right acromioclavicular joint. No acute osseous finding is appreciated. Previous cervical spine surgery is noted. Impression: 1. Mild bibasilar atelectasis. Other findings believed to be chronic as noted above. 2. No acute abnormality is appreciated on noncontrast CT study of the chest. 3. Calcified gallstones within the gallbladder. Diagnostic code #2 This report was dictated in MDT I agree with preliminary report from [facility], finalized on 11/15/19, 4:38 AM Central Daylight Time
== END 2019-11-15 04:25 | disposition home or self-care (01) ==
LOC: JD.ED 02:15
DX: S20.212A Contusion of left front wall of thorax, initial encounter (principal); M50.90 Cervical disc disorder, unspecified, unspecified cervical region; I10 Essential (primary) hypertension; K21.9 Gastro-esophageal reflux disease without esophagitis; F41.9 Anxiety disorder, unspecified; E03.9 Hypothyroidism, unspecified; Z79.899 Other long term (current) drug therapy; Z88.1 Allergy status to other antibiotic agents; Z88.5 Allergy status to narcotic agent; Z88.8 Allergy status to other drugs, medicaments and biological substances; W01.0XXA Fall on same level from slipping, tripping and stumbling without subsequent striking against object, initial encounter
CPT/HCPCS: 36415; 71250; 80053; 82553; 83735; 83880; 84484; 85025; 85610; 85730; 86140; 93005; 96374; 96375; 99285; J1170; J2765; J7030; J8540; 93010; 99284

== ENCOUNTER 2020-05-25 07:02 | Inpatient (IN) | payer MEDICARE, BC ==
[~2020-05-25 07:02] MED LIST: Lactated Ringers 1,000 ML IV SCH; Lidocaine 1% 4 ML ONE; Lidocaine 1%/Sod Bicarbonate in NS 8.4% 1 ML Syringe IDERM PRN; Propofol 200 MG/20 ML SDV ONE; Rocuronium 50 MG/5 ML Vial ONE; Sodium Chloride 0.9% 10 ML Syringe FLUSH PRN; fentaNYL 250 MCG/5 ML SDV ONE
[2020-05-25] MEDS ORDERED: Lidocaine 1% with EPINEPHrine 1:100,000 20 ML MDV ONE ×2 (07:16→09:07)
--- NOTE | 2020-05-25 07:32 | PCM.PREANE ---
Preanesthetic Assessment - Anesthesia/Transfusion/Family Hx Anesthesia History: Prior Anesthesia Without Reaction Family History of Anesthesia Reaction: No Transfusion History: Prior Transfusion Without Reaction - Review of Systems General: No Symptoms Pulmonary: Shortness of Breath Cardiovascular: No Symptoms Gastrointestinal: Abdominal Pain Neurological: No Symptoms Other: Reports: Diabetes (BS 95 pt states feels ok with that BS has had no appetite lately) - Physical Assessment NPO Status Date: 05/24/20 NPO Status Time: 18:00 ASA Class: 3 Mental Status: Alert & Oriented x3 Airway Class: Mallampati = 2 Dentition: Reports: Dentures (upper) Thyro-Mental Finger Breadths: 3 Mouth Opening Finger Breadths: 3 ROM/Head Extension: Full Lungs: Clear to Auscultation, Normal Respiratory Effort Cardiovascular: Regular Rate, Regular Rhythm - Allergies Allergies/Adverse Reactions: Allergies Allergy/AdvReac Type Severity Reaction Status Date / Time amoxicillin [Amoxicillin] Allergy Severe Rash Verified 05/20/20 08:56 codeine Allergy Severe Rash Verified 05/20/20 08:56 Esfyqrb-Tsz-Dbj Reductase Allergy Severe Body Aches Verified 05/20/20 08:56 Inhibitor - Anesthesia Plan Beta Kostas: Metoprolol Med Last Dose Date: 05/25/20 Med Last Dose Time: 05:30 - Acknowledgements Anesthesia Type Planned: General Anesthesia Pt an Appropriate Candidate for the Planned Anesthesia: Yes Alternatives and Risks of Anesthesia Discussed w Pt/Guardian: Yes Pt/Guardian Understands and Agrees with Anesthesia Plan: Yes PreAnesthesia Questionnaire HEENT History: Reports: Cataract, Epistaxis Cardiovascular History: Reports: Angina, Congenital Septal Defect, High Cholesterol, Hypertension, SOB on Exertion Respiratory History: Reports: SOB, Other (See Below) Other Respiratory History: Plueurisy Gastrointestinal History: Reports: GERD, Hemorrhoids, Irritable Bowel Syndrome, Other (See Below) Other Gastrointestinal History: gastric ulcer Genitourinary History: Reports: Other (See Below) Other Genitourinary History: renal artery stenosis, CKD II, acute kidney injury 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 Psychiatric History: Reports: Anxiety, Depression Endocrine/Metabolic History: Reports: Diabetes, Type II, Hyperparathyroidism Hematologic History: Reports: Anemia, B12 Deficiency, Other (See Below) Other Hematologic History: hypercalcemia Dermatologic History: Reports: Other (See Below) Other Dermatologic History: soft tissue disorder - Past Surgical History HEENT Surgical History: Reports: Cataract Surgery Other HEENT Surgeries/Procedures: sinus surgery GI Surgical History: Reports: Other (See Below) Other GI Surgeries/Procedures: hemorrhoidectomy Neurological Surgical History: Reports: Spinal Fusion Musculoskeletal Surgical History: Reports: Knee Replacement - SUBSTANCE USE Tobacco Use Status *Q: Former Tobacco User Recreational Drug Use History: No - HOME MEDS Home Medications: Home Meds Amitriptyline [Elavil] 10 mg PO BEDTIME 09/27/13 [History] Gemfibrozil 600 mg PO DAILY 09/27/13 [History] Levothyroxine Sodium [Synthroid] 125 mcg PO DAILY 09/27/13 [History] Losartan [Cozaar] 100 mg PO DAILY 09/27/13 [History] Metoprolol Tartrate [Lopressor] 50 mg PO BID 09/27/13 [History] amLODIPine [Norvasc] 10 mg PO DAILY 09/27/13 [History] ALPRAZolam [Xanax] 0.5 mg PO QID PRN 10/08/15 [History] Omeprazole [priLOSEC OTC] 20 mg PO DAILY PRN 07/26/17 [History] Denosumab [Prolia] 60 mg .XX ASDIRECTED 11/15/19 [History] oxyCODONE 5 mg PO Q4H 11/15/19 [History] Albuterol Sulfate [Albuterol Sulfate Hfa] 1 puff INH ASDIRECTED PRN 05/20/20 [History] - CURRENT (IN HOUSE) MEDS Current Meds: Current Medications Lactated Ringer's (Ringers, Lactated) 1,000 mls @ 125 mls/hr IV ASDIRECTED JERMAIN Stop: 05/25/20 23:00 Lidocaine/Sodium Bicarbonate (Buffered Lidocaine 1% In Ns 8.4%) 0.25 ml IDERM ONETIME PRN PRN Reason: Prior to IV Start Stop: 05/25/20 23:00 Sodium Chloride (Saline Flush) 10 ml FLUSH ASDIRECTED PRN PRN Reason: Keep Vein Open Stop: 05/25/20 18:00 Discontinued Medications Fentanyl (Sublimaze) Confirm Administered Dose 250 mcg .ROUTE .STK-MED ONE Stop: 05/25/20 07:02 Lidocaine HCl (Xylocaine-Mpf 1%) Confirm Administered Dose 4 mls @ as directed .ROUTE .STK-MED ONE Stop: 05/25/20 07:01 Lidocaine/Epinephrine (Xylocaine 1% With Epinephrine 1:100,000) Confirm Administered Dose 20 ml .ROUTE .STK-MED ONE Stop: 05/25/20 07:17 Propofol (Diprivan 20 Ml) Confirm Administered Dose 200 mg .ROUTE .STK-MED ONE Stop: 05/25/20 07:00 Rocuronium [place] (Zemuron) Confirm Administered Dose 50 mg .ROUTE .STK-MED ONE Stop: 05/25/20 07:01
[2020-05-25] MEDS ORDERED: ceFAZolin 1 GM Vial ONE (08:01)
[2020-05-25] MEDS ORDERED: Lactated Ringers 1,000 ML ONE (09:30)
--- NOTE | 2020-05-25 11:36 | PCM.POSTAN ---
POST ANESTHESIA ASSESSMENT - MENTAL STATUS Mental Status: Alert, Oriented - VITAL SIGNS Vital Signs: Last Vital Signs Temp 36.2 C 05/25/20 11:27 Pulse 63 05/25/20 07:15 Resp 25 H 05/25/20 11:27 BP 106/65 05/25/20 11:27 Pulse Ox 90 L 05/25/20 11:27 - RESPIRATORY Respiratory Status: Respiratory Rate WNL, Airway Patent, O2 Saturation Stable - CARDIOVASCULAR CV Status: Pulse Rate WNL, Blood Pressure Stable - GASTROINTESTINAL GI Status: No Symptoms - PAIN Pain Score: 5 - POST OP HYDRATION Hydration Status: Adequate & Stable
[2020-05-25] MEDS ORDERED: Ondansetron 4 MG/2 ML SDV IVPUSH PRN (11:39)
[2020-05-25] MEDS: fentaNYL 100 MCG/2 ML SDV IVPUSH PRN ×2 (11:50→12:12)
--- NOTE | 2020-05-25 12:18 | PCM48HPAN ---
Post Anesthesia Note - EVALUATION WITHIN 48HRS OF ANESTHETIC Vital Signs in Normal Range: Yes Patient Participated in Evaluation: Yes Respiratory Function Stable: Yes Airway Patent: Yes Cardiovascular Function Stable: Yes Hydration Status Stable: Yes Pain Control Satisfactory: No (pt in discomfort. PACU nurse administering fentanyl) Nausea and Vomiting Control Satisfactory: Yes Mental Status Recovered: Yes Vital Signs: Last Vital Signs Temp 36.2 C 05/25/20 11:27 Pulse 59 L 05/25/20 12:00 Resp 16 05/25/20 12:00 BP 104/58 L 05/25/20 12:00 Pulse Ox 91 L 05/25/20 12:00
[2020-05-25] MEDS ORDERED: oxyCODONE 5 MG Tab PO PRN ×2 (12:51→14:22)
[2020-05-25] MEDS ORDERED: oxyCODONE 5 MG Tab PO STA (14:21)
--- NOTE | 2020-05-25 18:15 | OR ---
DATE OF OPERATION: 05/25/2020 SURGEON: Perfecto Laura MD PREOPERATIVE DIAGNOSIS: Symptomatic cholelithiasis. POSTOPERATIVE DIAGNOSIS: 1. Intraabdominal ascites. 2. 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 3. Inflamed gallbladder. OPERATION PERFORMED: 1. Exploratory laparoscopy, lysis of adhesions, and biopsies of intraabdominal nodules on the omentum and peritoneum. 2. Laparoscopic cholecystectomy. ANESTHESIA: General endotracheal. COMPLICATIONS: None. ESTIMATED BLOOD LOSS: 20 mL. INDICATION AND CONSENT: The patient is an 84-year-old female, who about 3 weeks ago started having right upper quadrant abdominal pain associated with food. The pain was mainly in the right upper quadrant radiating to the right back. The patient also complained about feeling full all the time in the abdomen and feeling bloated. She recently started having constipation as well, so I saw the patient, and she had a CT scan as well as a right upper quadrant ultrasound both of which were concerning for cholelithiasis or biliary sludge. Due to these findings, I recommended a laparoscopic cholecystectomy and other indicated procedure provided nonspecific complaints of abdominal bloating. We discussed the risks, benefits, and alternatives with the patient. Informed consent was obtained. DESCRIPTION OF PROCEDURE: The patient was taken to the operating room and placed in supine position. The abdomen was prepped and draped in the usual sterile fashion. The patient was padded appropriately. Antibiotic consisting of Ancef was given. SCDs were placed. A time-out was performed. Then, the procedure was started. We began the procedure by making a supraumbilical incision after injecting a local anesthetic. Then, the umbilical stalk was lifted up. A Veress needle was placed. The abdomen was insufflated to 15 mmHg. Then, a 12 trocar was inserted under direct visualization of the scope. No injuries to the trocar insertion or the Veress needle placement. Immediately upon entering the abdomen, we saw extensive omental nodules, almost like omental caking, especially in the right mid abdomen towards the right lower quadrant. There were also many nodules in the peritoneum as well, extending all the way to the right diaphragm. The falciform, at the base of the falciform, there were nodules too. The pelvis, there were nodules. We explored the abdomen at this time. We saw that most nodules were located at the site mentioned above as well as the left pelvis. This area was explored, and it seemed that the left pelvis had significantly more nodules compared to the right. The left ovary was not clearly seen, but it seemed to be involved with the nodules and could be the source. The nodules appeared malignant. The left upper quadrant did not have much nodules. Once this was done, we proceeded first with drainage of the ascites. The suction stenographic court reporter was used to suction the ascites, murky, thin ascites. About 2 L was obtained. This was sent out for cytology, cultures, and various studies. Then, using a stone scoop, biopsies were obtained from both peritoneal as well as omental nodules, and these were sent for pathology. Once this was done, we decided to proceed with a laparoscopic cholecystectomy because the entirety of the gallbladder as well as the liver were not involved with the nodules. 5 mm trocars were placed, one in the suprapubic and two in the right subcostal area, and the gallbladder was grasped at the fundus and elevated cephalad. The cholecystic triangle was dissected clearly. A critical view of safety was obtained. Clips were applied to the cystic duct and cystic artery, a total of 3 clips, and these structures were cut such that 2 clips remained in situ. Then, the gallbladder was removed from the gallbladder fossa. It was clear that there was extensive acute inflammation along the gallbladder fossa. During the removal, there was some bleeding, most stopped right after the gallbladder was removed. Few areas were cauterized. Then, the abdomen was irrigated copiously and suctioned out with 2 L of warm saline, and the gallbladder was placed in an Endo Catch bag. We again reinspected the abdomen. There was no other evidence of continued bleeding. At this point, the gallbladder was removed through the supraumbilical incision, and then, the supraumbilical incision was closed at the fascial level with 0 Vicryl stitches using a Sid-Celena device. Then, the camera was removed and the abdomen desufflated, and the rest of the incisions, including the supraumbilical incision, were closed at the skin level with 4-0 Monocryl stitches. Of note, prior to beginning the cholecystectomy, a 5 mm trocar was placed in the left upper quadrant to assist with exploration of the abdomen as well as suctioning out of the ascites. At the end of the procedure, instruments, sharps, and sponges were counted and found to be correct x2. The patient was awoken from anesthesia, extubated, and taken to the PACU in stable condition. MMODAL /[id number] MTDD
[2020-05-26] MEDS: oxyCODONE 5 MG Tab PO PRN ×3 (02:00→15:52)
[2020-05-26] MEDS ORDERED: Albuterol 6.7 GM Inhaler INH PRN (10:05)
[2020-05-26] MEDS ORDERED: Denosumab 60 MG/1 ML Syringe SCH (10:15)
[2020-05-26] MEDS: Metoprolol Tartrate 50 MG Tab PO SCH ×2 (12:03→20:48)
[2020-05-26] MEDS: Losartan 100 MG Tab PO SCH (12:03)
[2020-05-26] MEDS: amLODIPine 10 MG Tab PO SCH (12:03)
--- NOTE | 2020-05-26 12:17 | PCM.PN ---
- General Info Date of Service: 05/26/20 Admission Dx/Problem (Free Text): Cholecystectomy Subjective Update: Patient has abdominal pain in the right abdomen-felt like something popped but this feeling resolved over time. she still feels bloated, no flatus pr BM yet. No appetite. she is keeping down fluids. SOB is improved a lot Functional Status: Reports: Pain Controlled, Tolerating Diet (fluids), Ambulating (ambulated in the room, unsteady on her feet.), Urinating - Review of Systems General: Reports: No Symptoms HEENT: Reports: No Symptoms Pulmonary: Reports: No Symptoms Cardiovascular: Reports: No Symptoms Gastrointestinal: Reports: Abdominal Pain (post op) Genitourinary: Reports: No Symptoms Musculoskeletal: Reports: No Symptoms Skin: Reports: No Symptoms Neurological: Reports: No Symptoms - Patient Data Vitals - Most Recent: Last Vital Signs Temp 98.1 F 05/26/20 08:14 Pulse 61 05/26/20 08:14 Resp 18 05/26/20 08:14 BP 101/45 L 05/26/20 11:24 Pulse Ox 94 L 05/26/20 08:14 Weight - Most Recent: 72.575 kg I&O - Last 24 Hours: Intake & Output 05/25/20 05/26/20 05/26/20 22:59 06:59 14:59 Intake Total 100 200 Output Total 450 Balance 100 -250 Lab Results Last 24 Hours: Laboratory Results - last 24 hr 05/25/20 05/25/20 05/25/20 Range/Units 09:00 09:00 09:12 Lactate Dehydrogenase 219 (81-234) U/L Total Protein 5.4 L (6.4-8.2) g/dl Albumin 2.7 L (3.4-5.0) g/dl Fluid Type Peritoneal fluid Fl Polymorphonucl Cell Not Reportable Fluid Glucose 105 mg/dL Fluid Amylase 15 U/L Jonn Results Last 24 Hours: Microbiology 05/25/20 09:00 Gram Stain - Final Abdominal Fluid - Aspirate Body Fluid Culture - Preliminary NO GROWTH AFTER 1 DAY Med Orders - Current: Current Medications Albuterol (Proventil Hfa) 0 gm INH ASDIRECTED PRN PRN Reason: Shortness of Breath Alprazolam (Xanax) 0.5 mg PO QID PRN PRN Reason: Anxiety Amitriptyline HCl (Elavil) 10 mg PO 1700 [facility] [place] Amlodipine Besylate (Norvasc) 10 mg PO DAILY [facility] [place] Last Admin: 05/26/20 12:03 Dose: Not Given Documented by: Gemfibrozil (Lopid) 600 mg PO 1700 [facility] [place] Levothyroxine Sodium (Levothyroxine) 150 mcg PO DAILY@0700 [facility] [place] Losartan Potassium (Cozaar) 100 mg PO DAILY [facility] [place] Last Admin: 05/26/20 12:03 Dose: Not Given Documented by: Metoprolol Tartrate (Lopressor) 50 mg PO BID [facility] [place] Last Admin: 05/26/20 12:03 Dose: Not Given Documented by: Oxycodone HCl (Oxycodone) 10 mg PO Q6H PRN PRN Reason: Pain Last Admin: 05/26/20 09:00 Dose: 10 mg Documented by: Pantoprazole Sodium (Protonix) 40 mg PO DAILY@0700 PRN PRN Reason: Heartburn Discontinued Medications Cefazolin Sodium (Ancef) Confirm Administered Dose 2 gm .ROUTE .STK-MED ONE Stop: 05/25/20 08:02 Denosumab (Prolia) 60 mg .XX ASDIRECTED [facility] [place] Fentanyl (Sublimaze) Confirm Administered Dose 250 mcg .ROUTE .STK-MED ONE Stop: 05/25/20 07:02 Fentanyl (Sublimaze) 50 mcg IVPUSH Q5M PRN PRN Reason: Pain Stop: 05/25/20 23:00 Last Admin: 05/25/20 12:12 Dose: 50 mcg Documented by: Lactated Ringer's (Ringers, Lactated) 1,000 mls @ 125 mls/hr IV ASDIRECTED [facility] [place] Stop: 05/25/20 23:00 Last Admin: 05/25/20 07:30 Dose: 125 mls/hr Documented by: Lidocaine HCl (Xylocaine-Mpf 1%) Confirm Administered Dose 4 mls @ as directed .ROUTE .STK-MED ONE Stop: 05/25/20 07:01 Lactated Ringer's (Ringers, Lactated) Confirm Administered Dose 1,000 mls @ as directed .ROUTE .STK-MED ONE Stop: 05/25/20 09:31 Lidocaine/Epinephrine (Xylocaine 1% With Epinephrine 1:100,000) Confirm Administered Dose 20 ml .ROUTE .STK-MED ONE Stop: 05/25/20 07:17 Last Admin: 05/25/20 08:52 Dose: 40 ml Documented by: Lidocaine/Epinephrine (Xylocaine 1% With Epinephrine 1:100,000) Confirm Administered Dose 20 ml .ROUTE .STK-MED ONE Stop: 05/25/20 09:08 Lidocaine/Sodium Bicarbonate (Buffered Lidocaine 1% In Ns 8.4%) 0.25 ml IDERM ONETIME PRN PRN Reason: Prior to IV Start Stop: 05/25/20 23:00 Last Admin: 05/25/20 07:30 Dose: 0.25 ml Documented by: Ondansetron HCl (Zofran) 4 mg IVPUSH ONETIME PRN PRN Reason: Nausea/Vomiting Stop: 05/25/20 23:00 Last Admin: 05/25/20 12:01 Dose: 4 mg Documented by: Oxycodone HCl (Oxycodone) 5 mg PO Q6H PRN PRN Reason: Pain Stop: 05/25/20 23:00 Last Admin: 05/25/20 13:01 Dose: 5 mg Documented by: Oxycodone HCl (Oxycodone) 5 mg PO STAT STA Stop: 05/25/20 14:22 Last Admin: 05/25/20 14:29 Dose: 5 mg Documented by: Oxycodone HCl (Oxycodone) 10 mg PO Q6H PRN PRN Reason: Pain Stop: 05/25/20 23:00 Last Admin: 05/25/20 19:13 Dose: 10 mg Documented by: Propofol (Diprivan 20 Ml) Confirm Administered Dose 200 mg .ROUTE .STK-MED ONE Stop: 05/25/20 07:00 Rocuronium [place] (Zemuron) Confirm Administered Dose 50 mg .ROUTE .STK-MED ONE Stop: 05/25/20 07:01 Sodium Chloride (Saline Flush) 10 ml FLUSH ASDIRECTED PRN PRN Reason: Keep Vein Open Stop: 05/25/20 18:00 - Exam General: Alert, Oriented, Cooperative Lungs: Clear to Auscultation Cardiovascular: Regular Rate, Regular Rhythm GI/Abdominal Exam: Soft, Non-Tender, No Abnormal Bruit, No Mass, Distended, Tender (appropriately) Sepsis Event Note - Evaluation Sepsis Screening Result: No Definite Risk - Focused Exam Vital Signs: Vital Signs Temp Pulse Resp BP Pulse Ox 05/26/20 11:24 101/45 L 05/26/20 08:14 98.1 F 61 18 114/51 L 94 L 05/26/20 04:26 98.1 F 66 16 131/76 96 - Problem List Review Problem List Initiated/Reviewed/Updated: No - My Orders Last 24 Hours: My Active Orders 05/25/20 17:26 Patient Status [ADT] Routine 05/25/20 23:24 oxyCODONE 10 mg PO Q6H PRN 05/26/20 Breakfast Regular Diet [DIET] 05/26/20 10:05 ALPRAZolam [Xanax] 0.5 mg PO QID PRN Albuterol [Proventil HFA] 0 gm INH ASDIRECTED PRN 05/26/20 10:06 Consult to Occupational Therapy [OT Evaluation and Treatment] [CONS] Routine Consult to Physical Therapy [PT Evaluation and Treatment] [CONS] Routine 05/26/20 10:07 RT Post Treatment Assessment [RC] Click to Edit RT Pre-Treatment Assessment [RC] Click to Edit 05/26/20 10:15 Losartan [Cozaar] 100 mg PO DAILY Metoprolol Tartrate [Lopressor] 50 mg PO BID amLODIPine [Norvasc] 10 mg PO DAILY 05/26/20 17:00 Amitriptyline [Elavil] 10 mg PO 1700 gemfibroziL [Lopid] 600 mg PO 1700 05/27/20 07:00 Levothyroxine 150 mcg PO DAILY@0700 Pantoprazole [ProTONIX] 40 mg PO DAILY@0700 PRN - Assessment Assessment:: POD1 explratory laparoscopy, biopsy of intraabdominal mass, drainage of ascites and lap meliton. Still has bloating and pain. 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 - Plan Plan:: - continue pain control. - encourage Fluid and po intake to avoid dehydration - encourage physical activities - will get PT/OT to see her and follow recs - will likely need SNF - resume home meds as appropriate. Will hold BP meds is BP is soft today. - CBC and BMP in the AM
[2020-05-26] MEDS: ALPRAZolam 0.5 MG Tab PO PRN ×2 (14:08→20:48)
[2020-05-26] MEDS: Gemfibrozil 600 MG Tab PO SCH (17:39)
[2020-05-26] MEDS: Amitriptyline 10 MG Tab PO SCH (17:39)
[2020-05-27] MEDS: oxyCODONE 5 MG Tab PO PRN ×3 (00:50→15:33)
[2020-05-27] MEDS: Levothyroxine 75 MCG Tab PO SCH (06:20)
[2020-05-27] MEDS ORDERED: Pantoprazole 40 MG Tab.CR PO PRN (07:00)
[2020-05-27] MEDS: Metoprolol Tartrate 50 MG Tab PO SCH ×2 (10:31→20:35)
[2020-05-27] MEDS: Losartan 100 MG Tab PO SCH (10:31)
[2020-05-27] MEDS: amLODIPine 10 MG Tab PO SCH (10:32)
[2020-05-27] MEDS ORDERED: Sodium Chloride 0.9% 500 ML IV ONE (12:45)
[2020-05-27] MEDS ORDERED: Bisacodyl 10 MG Supp RECTAL ONE (12:46)
[2020-05-27] MEDS: Polyethylene Glycol 3350 Powder 17 GM Packet PO SCH ×2 (13:08→20:36)
--- NOTE | 2020-05-27 14:19 | PCM.PN ---
- General Info Date of Service: 05/27/20 Admission Dx/Problem (Free Text): Cholecystectomy Subjective Update: Bloating is better, tolerating diet albeit not much, ambulating to the bathroom to urinate. Reports that she twisted her ankle-left- now if is tender to touch but she can bear weight on it just fine. Functional Status: Reports: Pain Controlled, Tolerating Diet, Ambulating, Urinating - Review of Systems General: Reports: No Symptoms HEENT: Reports: No Symptoms Pulmonary: Reports: No Symptoms Cardiovascular: Reports: No Symptoms Gastrointestinal: Reports: Abdominal Pain (post surgical) Genitourinary: Reports: No Symptoms Musculoskeletal: Reports: No Symptoms Skin: Reports: No Symptoms Neurological: Reports: No Symptoms Psychiatric: Reports: No Symptoms - Patient Data Vitals - Most Recent: Last Vital Signs Temp 98.8 F 05/27/20 11:26 Pulse 64 05/27/20 11:26 Resp 16 05/27/20 11:26 BP 128/87 05/27/20 11:26 Pulse Ox 90 L 05/27/20 11:26 Weight - Most Recent: 72.62 kg I&O - Last 24 Hours: Intake & Output 05/26/20 05/27/20 05/27/20 22:59 06:59 14:59 Intake Total 1010 150 Output Total 500 350 Balance 510 -200 Lab Results Last 24 Hours: Laboratory Results - last 24 hr 05/27/20 05/27/20 Range/Units 04:49 04:49 WBC 13.79 H (3.98-10.04) K/mm3 RBC 4.22 (3.98-5.22) M/mm3 Hgb 11.8 (11.2-15.7) gm/dl Hct 38.3 (34.1-44.9) % MCV 90.8 (79.4-94.8) fl MCH 28.0 (25.6-32.2) pg MCHC 30.8 L (32.2-35.5) g/dl RDW Std Deviation 48.4 H (36.4-46.3) fL Plt Count 353 (182-369) K/mm3 MPV 10.4 (9.4-12.3) fl Neut % (Auto) 75.9 H (34.0-71.1) % Lymph % (Auto) 9.6 L (19.3-51.7) % Smith % (Auto) 10.2 (4.7-12.5) % Eos % (Auto) 3.9 (0.7-5.8) Baso % (Auto) 0.1 (0.1-1.2) % Neut # (Auto) 10.45 H (1.56-6.13) K/mm3 Lymph # (Auto) 1.33 (1.18-3.74) K/mm3 Smith # (Auto) 1.41 H (0.24-0.36) K/mm3 Eos # (Auto) 0.54 H (0.04-0.36) K/mm3 Baso # (Auto) 0.02 (0.01-0.08) K/mm3 Manual Slide Review Abnormal smear Sodium 133 L (136-145) mEq/L Potassium 4.2 (3.5-5.1) mEq/L Chloride 100 (98-107) mEq/L Carbon Dioxide 25 (21-32) mEq/L Anion Gap 12.2 (5-15) BUN 12 (7-18) mg/dL Creatinine 1.1 H (0.55-1.02) mg/dL Est Cr Clr Drug Dosing 27.19 mL/min Estimated GFR (MDRD) 47 (>60) mL/min BUN/Creatinine Ratio 10.9 L (14-18) Glucose 100 (83-115) mg/dL Calcium 8.2 L (8.5-10.1) mg/dL Total Bilirubin 0.5 (0.2-1.0) mg/dL AST 26 (15-37) U/L ALT 32 (14-59) U/L Alkaline Phosphatase 91 (46-116) U/L Total Protein 6.6 (6.4-8.2) g/dl Albumin 2.7 L (3.4-5.0) g/dl Globulin 3.9 gm/dL Albumin/Globulin Ratio 0.7 L (1-2) Jonn Results Last 24 Hours: Microbiology 05/25/20 09:00 Gram Stain - Final Abdominal Fluid - Aspirate Body Fluid Culture - Preliminary NO GROWTH AFTER 2 DAYS Med Orders - Current: Current Medications Albuterol (Proventil Hfa) 0 gm INH ASDIRECTED PRN PRN Reason: Shortness of Breath Alprazolam (Xanax) 0.5 mg PO QID PRN PRN Reason: Anxiety Last Admin: 05/26/20 20:48 Dose: 0.5 mg Documented by: Amitriptyline HCl (Elavil) 10 mg PO 1700 [facility] Last Admin: 05/26/20 17:39 Dose: 10 mg Documented by: Amlodipine Besylate (Norvasc) 10 mg PO DAILY [facility] Last Admin: 05/27/20 10:32 Dose: Not Given Documented by: Gemfibrozil (Lopid) 600 mg PO 1700 [facility] Last Admin: 05/26/20 17:39 Dose: 600 mg Documented by: Levothyroxine Sodium (Levothyroxine) 150 mcg PO DAILY@0700 [facility] Last Admin: 05/27/20 06:20 Dose: 150 mcg Documented by: Losartan Potassium (Cozaar) 100 mg PO DAILY [facility] Last Admin: 05/27/20 10:31 Dose: Not Given Documented by: Metoprolol Tartrate (Lopressor) 50 mg PO BID [facility] Last Admin: 05/27/20 10:31 Dose: Not Given Documented by: Oxycodone HCl (Oxycodone) 10 mg PO Q6H PRN PRN Reason: Pain Last Admin: 05/27/20 06:37 Dose: 10 mg Documented by: Pantoprazole Sodium (Protonix) 40 mg PO DAILY@0700 PRN PRN Reason: Heartburn Polyethylene Glycol (Miralax) 17 gm PO BID [facility] Last Admin: 05/27/20 13:08 Dose: 17 gm Documented by: Discontinued Medications Bisacodyl (Dulcolax) 10 mg RECTAL ONETIME ONE Stop: 05/27/20 12:47 Last Admin: 05/27/20 12:54 Dose: 10 mg Documented by: Cefazolin Sodium (Ancef) Confirm Administered Dose 2 gm .ROUTE .STK-MED ONE Stop: 05/25/20 08:02 Denosumab (Prolia) 60 mg .XX ASDIRECTED [facility] Fentanyl (Sublimaze) Confirm Administered Dose 250 mcg .ROUTE .STK-MED ONE Stop: 05/25/20 07:02 Fentanyl (Sublimaze) 50 mcg IVPUSH Q5M PRN PRN Reason: Pain Stop: 05/25/20 23:00 Last Admin: 05/25/20 12:12 Dose: 50 mcg Documented by: Lactated Ringer's (Ringers, Lactated) 1,000 mls @ 125 mls/hr IV ASDIRECTED [facility] Stop: 05/25/20 23:00 Last Admin: 05/25/20 07:30 Dose: 125 mls/hr Documented by: Lidocaine HCl (Xylocaine-Mpf 1%) Confirm Administered Dose 4 mls @ as directed .ROUTE .STK-MED ONE Stop: 05/25/20 07:01 Lactated Ringer's (Ringers, Lactated) Confirm Administered Dose 1,000 mls @ as directed .ROUTE .STK-MED ONE Stop: 05/25/20 09:31 Sodium Chloride (Normal Saline) 500 mls @ 999 mls/hr IV .BOLUS ONE Stop: 05/27/20 13:15 Last Admin: 05/27/20 12:58 Dose: 999 mls/hr Documented by: Lidocaine/Epinephrine (Xylocaine 1% With Epinephrine 1:100,000) Confirm Administered Dose 20 ml .ROUTE .STK-MED ONE Stop: 05/25/20 07:17 Last Admin: 05/25/20 08:52 Dose: 40 ml Documented by: Lidocaine/Epinephrine (Xylocaine 1% With Epinephrine 1:100,000) Confirm Administered Dose 20 ml .ROUTE .STK-MED ONE Stop: 05/25/20 09:08 Lidocaine/Sodium Bicarbonate (Buffered Lidocaine 1% In Ns 8.4%) 0.25 ml IDERM ONETIME PRN PRN Reason: Prior to IV Start Stop: 05/25/20 23:00 Last Admin: 05/25/20 07:30 Dose: 0.25 ml Documented by: Ondansetron HCl (Zofran) 4 mg IVPUSH ONETIME PRN PRN Reason: Nausea/Vomiting Stop: 05/25/20 23:00 Last Admin: 05/25/20 12:01 Dose: 4 mg Documented by: Oxycodone HCl (Oxycodone) 5 mg PO Q6H PRN PRN Reason: Pain Stop: 05/25/20 23:00 Last Admin: 05/25/20 13:01 Dose: 5 mg Documented by: Oxycodone HCl (Oxycodone) 5 mg PO STAT [facility] Stop: 05/25/20 14:22 Last Admin: 05/25/20 14:29 Dose: 5 mg Documented by: Oxycodone HCl (Oxycodone) 10 mg PO Q6H PRN PRN Reason: Pain Stop: 05/25/20 23:00 Last Admin: 05/25/20 19:13 Dose: 10 mg Documented by: Propofol (Diprivan 20 Ml) Confirm Administered Dose 200 mg .ROUTE .STK-MED ONE Stop: 05/25/20 07:00 Rocuronium [place] (Zemuron) Confirm Administered Dose 50 mg .ROUTE .STK-MED ONE Stop: 05/25/20 07:01 Sodium Chloride (Saline Flush) 10 ml FLUSH ASDIRECTED PRN PRN Reason: Keep Vein Open Stop: 05/25/20 18:00 - Exam General: Alert, Oriented Lungs: Clear to Auscultation, Normal Respiratory Effort Cardiovascular: Regular Rate, Regular Rhythm, No Murmurs GI/Abdominal Exam: Soft, Tender (around the incisions, appropriately) Sepsis Event Note - Evaluation Sepsis Screening Result: No Definite Risk - Focused Exam Vital Signs: Vital Signs Temp Pulse Resp BP Pulse Ox Pulse Ox 05/27/20 11:26 98.8 F 64 16 128/87 90 L 05/27/20 10:10 111/75 05/27/20 10:09 99/23 L 05/27/20 10:08 97/31 L 05/27/20 10:05 71 92 L 05/27/20 08:01 98.6 F 69 18 109/68 90 L 05/27/20 06:00 90 L 05/27/20 04:51 99.0 F 65 18 100/61 86 L - Problem List Review Problem List Initiated/Reviewed/Updated: No - My Orders Last 24 Hours: My Active Orders 05/26/20 15:06 Resuscitation Status Routine 05/26/20 17:00 Amitriptyline [Elavil] 10 mg PO 1700 gemfibroziL [Lopid] 600 mg PO 1700 05/26/20 18:08 Antiembolic Devices [RC] PER UNIT ROUTINE SCD [Sequential Compression Device] [OM.PC] Routine 05/27/20 07:00 Levothyroxine 150 mcg PO DAILY@0700 Pantoprazole [ProTONIX] 40 mg PO DAILY@0700 PRN 05/27/20 07:43 Patient Status [ADT] Routine 05/27/20 11:30 polyethylene glycoL 3350 [MiraLAX] 17 gm PO BID 05/28/20 05:11 CBC WITH AUTO DIFF [HEME] AM 05/29/20 05:11 CBC WITH AUTO DIFF [HEME] AM - Assessment Assessment:: POD2 explratory laparoscopy, biopsy of intraabdominal mass, drainage of ascites and lap meliton. improving. - Plan Plan:: - wean oxygen as tolerated. if she desaturates, then we will evaluate for home oxygen - ie- walk test. We will set up home oxygen if indicated - encourage PO intake. Will give 500 mL fluid bolus to moderately hydrate as the pt feels mouth is dry. - Post op ileus - 3 days without BM -Will give Miralax and Dulcolax supository to elicit BM. - encourage physical activities - continue PT/OT as tolerated - resume home meds as appropriate. Will hold BP meds if BP soft. - Dispo - rec SNF but pt wants to go home with PT/OT, nursing help. Her daughter will stay with her for a while. We will arrange for home discharge. Likely tomorrow.
[2020-05-27] MEDS: Amitriptyline 10 MG Tab PO SCH (17:30)
[2020-05-27] MEDS: Gemfibrozil 600 MG Tab PO SCH (17:30)
[2020-05-27] MEDS: ALPRAZolam 0.5 MG Tab PO PRN (22:04)
[2020-05-28] MEDS: oxyCODONE 5 MG Tab PO PRN ×2 (02:19→08:27)
[2020-05-28] MEDS: Levothyroxine 75 MCG Tab PO SCH (06:43)
[2020-05-28 11:02] VITALS: BP 113/62; PULSE 82
--- NOTE | 2020-05-28 21:40 | PCM.PN ---
- General Info Date of Service: 05/28/20 Admission Dx/Problem (Free Text): Cholecystectomy Subjective Update: Pain feels alot better today. Had 2 BMs, ambulated, food is staying down, pain is controlled. Functional Status: Reports: Pain Controlled, Tolerating Diet, Ambulating, Urinating - Review of Systems General: Reports: No Symptoms HEENT: Reports: No Symptoms Pulmonary: Reports: No Symptoms Cardiovascular: Reports: No Symptoms Gastrointestinal: Reports: Abdominal Pain (post op) Genitourinary: Reports: No Symptoms Musculoskeletal: Reports: Other (left knee pain, much improved) Skin: Reports: No Symptoms Neurological: Reports: No Symptoms - Patient Data Vitals - Most Recent: Last Vital Signs Temp 98.1 F 05/28/20 09:06 Pulse 78 05/28/20 09:06 Resp 14 05/28/20 09:00 BP 113/62 05/28/20 09:00 Pulse Ox 93 L 05/28/20 09:06 Weight - Most Recent: 72.802 kg I&O - Last 24 Hours: Intake & Output 05/28/20 05/28/20 05/28/20 06:59 14:59 22:59 Intake Total 300 Output Total 150 Balance 150 Lab Results Last 24 Hours: Laboratory Results - last 24 hr 05/25/20 05/28/20 Range/Units 09:12 05:42 WBC 8.60 (3.98-10.04) K/mm3 RBC 3.77 L (3.98-5.22) M/mm3 Hgb 10.6 L (11.2-15.7) gm/dl Hct 34.3 (34.1-44.9) % MCV 91.0 (79.4-94.8) fl MCH 28.1 (25.6-32.2) pg MCHC 30.9 L (32.2-35.5) g/dl RDW Std Deviation 48.0 H (36.4-46.3) fL Plt Count 319 (182-369) K/mm3 MPV 10.5 (9.4-12.3) fl Neut % (Auto) 64.2 (34.0-71.1) % Lymph % (Auto) 15.2 L (19.3-51.7) % [place] % (Auto) 14.2 H (4.7-12.5) % Eos % (Auto) 5.9 H (0.7-5.8) Baso % (Auto) 0.2 (0.1-1.2) % Neut # (Auto) 5.51 (1.56-6.13) K/mm3 Lymph # (Auto) 1.31 (1.18-3.74) K/mm3 [place] # (Auto) 1.22 H (0.24-0.36) K/mm3 Eos # (Auto) 0.51 H (0.04-0.36) K/mm3 Baso # (Auto) 0.02 (0.01-0.08) K/mm3 Miscellaneous Test See comments Jonn Results Last 24 Hours: Microbiology 05/25/20 09:00 Gram Stain - Final Abdominal Fluid - Aspirate Body Fluid Culture - Preliminary NO GROWTH AFTER 3 DAYS Med Orders - Current: Current Medications Discontinued Medications Albuterol (Proventil Hfa) 0 gm INH ASDIRECTED PRN PRN Reason: Shortness of Breath Alprazolam (Xanax) 0.5 mg PO QID PRN PRN Reason: Anxiety Last Admin: 05/27/20 22:04 Dose: 0.5 mg Documented by: Amitriptyline HCl (Elavil) 10 mg PO 1700 [facility] Last Admin: 05/27/20 17:30 Dose: 10 mg Documented by: Amlodipine Besylate (Norvasc) 10 mg PO DAILY [facility] Last Admin: 05/27/20 10:32 Dose: Not Given Documented by: Bisacodyl (Dulcolax) 10 mg RECTAL ONETIME ONE Stop: 05/27/20 12:47 Last Admin: 05/27/20 12:54 Dose: 10 mg Documented by: Cefazolin Sodium (Ancef) Confirm Administered Dose 2 gm .ROUTE .STK-MED ONE Stop: 05/25/20 08:02 Denosumab (Prolia) 60 mg .XX ASDIRECTED [facility] Fentanyl (Sublimaze) Confirm Administered Dose 250 mcg .ROUTE .STK-MED ONE Stop: 05/25/20 07:02 Fentanyl (Sublimaze) 50 mcg IVPUSH Q5M PRN PRN Reason: Pain Stop: 05/25/20 23:00 Last Admin: 05/25/20 12:12 Dose: 50 mcg Documented by: Gemfibrozil (Lopid) 600 mg PO 1700 [facility] Last Admin: 05/27/20 17:30 Dose: 600 mg Documented by: Lactated Ringer's (Ringers, Lactated) 1,000 mls @ 125 mls/hr IV ASDIRECTED [facility] Stop: 05/25/20 23:00 Last Admin: 05/25/20 07:30 Dose: 125 mls/hr Documented by: Lidocaine HCl (Xylocaine-Mpf 1%) Confirm Administered Dose 4 mls @ as directed .ROUTE .STK-MED ONE Stop: 05/25/20 07:01 Lactated Ringer's (Ringers, Lactated) Confirm Administered Dose 1,000 mls @ as directed .ROUTE .STK-MED ONE Stop: 05/25/20 09:31 Sodium Chloride (Normal Saline) 500 mls @ 999 mls/hr IV .BOLUS ONE Stop: 05/27/20 13:15 Last Admin: 05/27/20 12:58 Dose: 999 mls/hr Documented by: Levothyroxine Sodium (Levothyroxine) 150 mcg PO DAILY@0700 [facility] Last Admin: 05/28/20 06:43 Dose: 150 mcg Documented by: Lidocaine/Epinephrine (Xylocaine 1% With Epinephrine 1:100,000) Confirm Administered Dose 20 ml .ROUTE .STK-MED ONE Stop: 05/25/20 07:17 Last Admin: 05/25/20 08:52 Dose: 40 ml Documented by: Lidocaine/Epinephrine (Xylocaine 1% With Epinephrine 1:100,000) Confirm Administered Dose 20 ml .ROUTE .STK-MED ONE Stop: 05/25/20 09:08 Lidocaine/Sodium Bicarbonate (Buffered Lidocaine 1% In Ns 8.4%) 0.25 ml IDERM ONETIME PRN PRN Reason: Prior to IV Start Stop: 05/25/20 23:00 Last Admin: 05/25/20 07:30 Dose: 0.25 ml Documented by: Losartan Potassium (Cozaar) 100 mg PO DAILY [facility] Last Admin: 05/27/20 10:31 Dose: Not Given Documented by: Metoprolol Tartrate (Lopressor) 50 mg PO BID [facility] Last Admin: 05/27/20 20:35 Dose: Not Given Documented by: Ondansetron HCl (Zofran) 4 mg IVPUSH ONETIME PRN PRN Reason: Nausea/Vomiting Stop: 05/25/20 23:00 Last Admin: 05/25/20 12:01 Dose: 4 mg Documented by: Oxycodone HCl (Oxycodone) 5 mg PO Q6H PRN PRN Reason: Pain Stop: 05/25/20 23:00 Last Admin: 05/25/20 13:01 Dose: 5 mg Documented by: Oxycodone HCl (Oxycodone) 5 mg PO STAT STA Stop: 05/25/20 14:22 Last Admin: 05/25/20 14:29 Dose: 5 mg Documented by: Oxycodone HCl (Oxycodone) 10 mg PO Q6H PRN PRN Reason: Pain Stop: 05/25/20 23:00 Last Admin: 05/25/20 19:13 Dose: 10 mg Documented by: Oxycodone HCl (Oxycodone) 10 mg PO Q6H PRN PRN Reason: Pain Last Admin: 05/28/20 08:27 Dose: 10 mg Documented by: Pantoprazole Sodium (Protonix) 40 mg PO DAILY@0700 PRN PRN Reason: Heartburn Polyethylene Glycol (Miralax) 17 gm PO BID [facility] Last Admin: 05/27/20 20:36 Dose: Not Given Documented by: Propofol (Diprivan 20 Ml) Confirm Administered Dose 200 mg .ROUTE .STK-MED ONE Stop: 05/25/20 07:00 Rocuronium [place] (Zemuron) Confirm Administered Dose 50 mg .ROUTE .STK-MED ONE Stop: 05/25/20 07:01 Sodium Chloride (Saline Flush) 10 ml FLUSH ASDIRECTED PRN PRN Reason: Keep Vein Open Stop: 05/25/20 18:00 - Exam General: Alert, Oriented, Cooperative Lungs: Clear to Auscultation, Normal Respiratory Effort Cardiovascular: Regular Rate, Regular Rhythm, No Murmurs GI/Abdominal Exam: Normal Bowel Sounds, Soft, No Organomegaly, No Abnormal Bruit, No Mass, Distended (mildly), Tender (appropriately) Sepsis Event Note - Evaluation Sepsis Screening Result: No Definite Risk - Problem List Review Problem List Initiated/Reviewed/Updated: No - Assessment Assessment:: POD2 exploratory laparoscopy, biopsy of intraabdominal mass, drainage of ascites and lap meliton. improving. - Plan Plan:: - walk test revealed desats, pt will need oxygen at home - pain control with Po meds - Miralax daily - Hold all BP meds as BP has been normal without meds - encourage ambulation Dispo: home today with home health, home PT/OT and oxygen
--- NOTE | 2020-05-28 21:46 | PCM.DCSUM1 ---
Discharge Summary - Hospital Course Free Text/Narrative:: Patient underwent a lap meliton on 05/25. 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 Ascites was drained, modules biopsied, and lap meliton completed. no immediate complications. The patient has post op hypoxia requiring 5L oxygen and pain requiring ascelation of pain medicines. Patient gradually improved to 1L oxygen and only moderate doses of PO oxycodone. Patient requires oxygen for home which will be arranged. On the day of discharge, she was ambulating, on 1L oxygen, tolerating diet and pain well controlled. She will follow up with Dr. Laura in clinic in 1 week. Diagnosis: Stroke: No - Discharge Data Discharge Date: 05/28/20 Discharge Disposition: Home, W Home Health Agency 06 Condition: Good - Referral to Home Health Date of Face to Face Encounter: 05/28/20 Reason for Homebound Status: Pt is currently homebound related to decreased activity tolerance, decreased level of indurance, and need for FWW and assistance for obility. Pt will be followed by her primary care provider Janene Kuhn. Primary Care Physician: Janene Kuhn NP Skilled Need: Face to face meeting with the patient or family. Pt has the following diagnosis; Exploratory laparoscopy, biopsy of intraabdominal masses, drainage of ascites and cholecystectomy. Also see discahrge summary for additional diagnoses. Pt needs Home Health Care nursing services for; skilled assessment, pain management, post op care, vital signs, disease education/management, and medication education. Physical therapy for gait training, balance training, neuromuscular re-education, pain management, therapeutic exercise. Occupational therapy for activities of daily living, balance training, functional mobility training, safety education, therapeutic activities, therapeutic exercises. - Patient Summary/Data Consults: Consultations 05/26/20 10:06 Consult to Occupational Therapy [OT Evaluation and Treatment] [CONS] Routine Consult to Physical Therapy [PT Evaluation and Treatment] [CONS] Routine - Patient Instructions Diet: Heart Healthy Diet Activity: No Lifting Over 20 Pounds (for 2 weeks) Driving: Do Not Drive (for 24 hrs after anesthesia and while on opioid pain medications) Showering/Bathing: May Shower Wound/Incision Care: Keep Operative Site/Wound Site Clean and Dry Notify Provider of: Fever, Increased Pain, Drainage Other/Special Instructions: - If you have a lot of drainage from the incision sites, call Dr. Laura's office. - Hold BP meds at home until follow up with Dr. Laura - Discharge Plan *PRESCRIPTION DRUG MONITORING PROGRAM REVIEWED*: No *COPY OF PRESCRIPTION DRUG MONITORING REPORT IN PATIENT GUILLERMINA: No Prescriptions/Med Rec: polyethylene glycoL 3350 [MiraLAX] 17 gm PO DAILY 30 Days #30 packet oxyCODONE 10 mg PO Q6H PRN 3 Days #24 tablet PRN Reason: Abdominal Pain oxyCODONE 5 mg PO Q6H 3 Days #12 Home Medications: Home Meds Amitriptyline [Elavil] 10 mg PO 1700 09/27/13 [History] Gemfibrozil 600 mg PO 1700 09/27/13 [History] Levothyroxine Sodium [Synthroid] 150 mcg PO DAILY 09/27/13 [History] Losartan [Cozaar] 100 mg PO DAILY 09/27/13 [History] Metoprolol Tartrate [Lopressor] 50 mg PO BID 09/27/13 [History] amLODIPine [Norvasc] 10 mg PO DAILY 09/27/13 [History] ALPRAZolam [Xanax] 0.5 mg PO QID PRN 10/08/15 [History] Omeprazole [priLOSEC OTC] 20 mg PO DAILY PRN 07/26/17 [History] Denosumab [Prolia] 60 mg .XX ASDIRECTED 11/15/19 [History] Albuterol Sulfate [Albuterol Sulfate Hfa] 1 puff INH ASDIRECTED PRN 05/20/20 [History] oxyCODONE 5 mg PO Q6H 3 Days #12 05/25/20 [Rx] oxyCODONE 10 mg PO Q6H PRN 3 Days #24 tablet 05/28/20 [Rx] polyethylene glycoL 3350 [MiraLAX] 17 gm PO DAILY 30 Days #30 packet 05/28/20 [Rx] Oxygen Therapy Mode: Room Air Patient Handouts: Hypotension, [id number], Laparoscopic Cholecystectomy, Care After, [id number] Referrals: Perfecto Laura MD [Physician] - 06/04/20 1:45 pm (1 weeks) - Discharge Summary/Plan Comment DC Time >30 min.: Yes Discharge Summary/Plan Comment: Follow up with Dr. Laura in 1 week. - General Info Date of Service: 05/28/20 Admission Dx/Problem (Free Text: Cholecystectomy Subjective Update: Pain feels alot better today. Had 2 BMs, ambulated, food is staying down, pain is controlled. Functional Status: Reports: Pain Controlled, Tolerating Diet, Ambulating, Urinating - Review of Systems General: Reports: No Symptoms HEENT: Reports: No Symptoms Pulmonary: Reports: Shortness of Breath Cardiovascular: Reports: No Symptoms Gastrointestinal: Reports: Abdominal Pain (around incisions, appropriate) Genitourinary: Reports: No Symptoms Musculoskeletal: Reports: No Symptoms Skin: Reports: No Symptoms Neurological: Reports: No Symptoms Psychiatric: Reports: No Symptoms - Patient Data Vitals - Most Recent: Last Vital Signs Temp 98.1 F 05/28/20 09:06 Pulse 78 05/28/20 09:06 Resp 14 05/28/20 09:00 BP 113/62 05/28/20 09:00 Pulse Ox 93 L 05/28/20 09:06 Weight - Most Recent: 72.802 kg I&O - Last 24 hours: Intake & Output 05/28/20 05/28/20 05/28/20 06:59 14:59 22:59 Intake Total 300 Output Total 150 Balance 150 Lab Results - Last 24 hrs: Laboratory Results - last 24 hr 05/25/20 05/28/20 Range/Units 09:12 05:42 WBC 8.60 (3.98-10.04) K/mm3 RBC 3.77 L (3.98-5.22) M/mm3 Hgb 10.6 L (11.2-15.7) gm/dl Hct 34.3 (34.1-44.9) % MCV 91.0 (79.4-94.8) fl MCH 28.1 (25.6-32.2) pg MCHC 30.9 L (32.2-35.5) g/dl RDW Std Deviation 48.0 H (36.4-46.3) fL Plt Count 319 (182-369) K/mm3 MPV 10.5 (9.4-12.3) fl Neut % (Auto) 64.2 (34.0-71.1) % Lymph % (Auto) 15.2 L (19.3-51.7) % [place] % (Auto) 14.2 H (4.7-12.5) % Eos % (Auto) 5.9 H (0.7-5.8) Baso % (Auto) 0.2 (0.1-1.2) % Neut # (Auto) 5.51 (1.56-6.13) K/mm3 Lymph # (Auto) 1.31 (1.18-3.74) K/mm3 [place] # (Auto) 1.22 H (0.24-0.36) K/mm3 Eos # (Auto) 0.51 H (0.04-0.36) K/mm3 Baso # (Auto) 0.02 (0.01-0.08) K/mm3 Miscellaneous Test See comments JED Results - Last 24 hrs: Microbiology 05/25/20 09:00 Gram Stain - Final Abdominal Fluid - Aspirate Body Fluid Culture - Preliminary NO GROWTH AFTER 3 DAYS Med Orders - Current: Current Medications Discontinued Medications Albuterol (Proventil Hfa) 0 gm INH ASDIRECTED PRN PRN Reason: Shortness of Breath Alprazolam (Xanax) 0.5 mg PO QID PRN PRN Reason: Anxiety Last Admin: 05/27/20 22:04 Dose: 0.5 mg Documented by: Amitriptyline HCl (Elavil) 10 mg PO 1700 [facility] Last Admin: 05/27/20 17:30 Dose: 10 mg Documented by: Amlodipine Besylate (Norvasc) 10 mg PO DAILY [facility] Last Admin: 05/27/20 10:32 Dose: Not Given Documented by: Bisacodyl (Dulcolax) 10 mg RECTAL ONETIME ONE Stop: 05/27/20 12:47 Last Admin: 05/27/20 12:54 Dose: 10 mg Documented by: Cefazolin Sodium (Ancef) Confirm Administered Dose 2 gm .ROUTE .STK-MED ONE Stop: 05/25/20 08:02 Denosumab (Prolia) 60 mg .XX ASDIRECTED [facility] Fentanyl (Sublimaze) Confirm Administered Dose 250 mcg .ROUTE .STK-MED ONE Stop: 05/25/20 07:02 Fentanyl (Sublimaze) 50 mcg IVPUSH Q5M PRN PRN Reason: Pain Stop: 05/25/20 23:00 Last Admin: 05/25/20 12:12 Dose: 50 mcg Documented by: Gemfibrozil (Lopid) 600 mg PO 1700 [facility] Last Admin: 05/27/20 17:30 Dose: 600 mg Documented by: Lactated Ringer's (Ringers, Lactated) 1,000 mls @ 125 mls/hr IV ASDIRECTED [facility] Stop: 05/25/20 23:00 Last Admin: 05/25/20 07:30 Dose: 125 mls/hr Documented by: Lidocaine HCl (Xylocaine-Mpf 1%) Confirm Administered Dose 4 mls @ as directed .ROUTE .STK-MED ONE Stop: 05/25/20 07:01 Lactated Ringer's (Ringers, Lactated) Confirm Administered Dose 1,000 mls @ as directed .ROUTE .STK-MED ONE Stop: 05/25/20 09:31 Sodium Chloride (Normal Saline) 500 mls @ 999 mls/hr IV .BOLUS ONE Stop: 05/27/20 13:15 Last Admin: 05/27/20 12:58 Dose: 999 mls/hr Documented by: Levothyroxine Sodium (Levothyroxine) 150 mcg PO DAILY@0700 [facility] Last Admin: 05/28/20 06:43 Dose: 150 mcg Documented by: Lidocaine/Epinephrine (Xylocaine 1% With Epinephrine 1:100,000) Confirm Administered Dose 20 ml .ROUTE .STK-MED ONE Stop: 05/25/20 07:17 Last Admin: 05/25/20 08:52 Dose: 40 ml Documented by: Lidocaine/Epinephrine (Xylocaine 1% With Epinephrine 1:100,000) Confirm Administered Dose 20 ml .ROUTE .STK-MED ONE Stop: 05/25/20 09:08 Lidocaine/Sodium Bicarbonate (Buffered Lidocaine 1% In Ns 8.4%) 0.25 ml IDERM ONETIME PRN PRN Reason: Prior to IV Start Stop: 05/25/20 23:00 Last Admin: 05/25/20 07:30 Dose: 0.25 ml Documented by: Losartan Potassium (Cozaar) 100 mg PO DAILY [facility] Last Admin: 05/27/20 10:31 Dose: Not Given Documented by: Metoprolol Tartrate (Lopressor) 50 mg PO BID [facility] Last Admin: 05/27/20 20:35 Dose: Not Given Documented by: Ondansetron HCl (Zofran) 4 mg IVPUSH ONETIME PRN PRN Reason: Nausea/Vomiting Stop: 05/25/20 23:00 Last Admin: 05/25/20 12:01 Dose: 4 mg Documented by: Oxycodone HCl (Oxycodone) 5 mg PO Q6H PRN PRN Reason: Pain Stop: 05/25/20 23:00 Last Admin: 05/25/20 13:01 Dose: 5 mg Documented by: Oxycodone HCl (Oxycodone) 5 mg PO STAT STA Stop: 05/25/20 14:22 Last Admin: 05/25/20 14:29 Dose: 5 mg Documented by: Oxycodone HCl (Oxycodone) 10 mg PO Q6H PRN PRN Reason: Pain Stop: 05/25/20 23:00 Last Admin: 05/25/20 19:13 Dose: 10 mg Documented by: Oxycodone HCl (Oxycodone) 10 mg PO Q6H PRN PRN Reason: Pain Last Admin: 05/28/20 08:27 Dose: 10 mg Documented by: Pantoprazole Sodium (Protonix) 40 mg PO DAILY@0700 PRN PRN Reason: Heartburn Polyethylene Glycol (Miralax) 17 gm PO BID [facility] Last Admin: 05/27/20 20:36 Dose: Not Given Documented by: Propofol (Diprivan 20 Ml) Confirm Administered Dose 200 mg .ROUTE .STK-MED ONE Stop: 05/25/20 07:00 Rocuronium [place] (Zemuron) Confirm Administered Dose 50 mg .ROUTE .STK-MED ONE Stop: 05/25/20 07:01 Sodium Chloride (Saline Flush) 10 ml FLUSH ASDIRECTED PRN PRN Reason: Keep Vein Open Stop: 05/25/20 18:00 - Exam General: Reports: Alert, Oriented, Cooperative Lungs: Reports: Clear to Auscultation, Normal Respiratory Effort Cardiovascular: Reports: Regular Rate, Regular Rhythm, No Murmurs GI/Abdominal Exam: Soft, No Organomegaly, No Abnormal Bruit, No Mass, Pelvis Stable, Tender (around incisions)
== END 2020-05-28 13:40 | disposition home health service (06) | DRG 418 ==
LOC: JD.SDS 07:02 → JD.MS 07:43 → OBSVTOIN 05-27 07:43 → JD.OB 05-27 15:42
PROVIDERS: ADMIT Surgery; ATTEND Surgery
PROC: 0FT44ZZ Resection of Gallbladder, Percutaneous Endoscopic Approach (ICD-10-PCS; principal; 2020-05-25)
PROC: 0DBU4ZX Excision of Omentum, Percutaneous Endoscopic Approach, Diagnostic (ICD-10-PCS; 2020-05-25)
PROC: 0WBH4ZX Excision of Retroperitoneum, Percutaneous Endoscopic Approach, Diagnostic (ICD-10-PCS; 2020-05-25)
PROC: 0W9G3ZZ Drainage of Peritoneal Cavity, Percutaneous Approach (ICD-10-PCS; 2020-05-25)
DX: K80.70 Calculus of gallbladder and bile duct without cholecystitis without obstruction (principal); C78.6 Secondary malignant neoplasm of retroperitoneum and peritoneum; R18.0 Malignant ascites; K56.7 Ileus, unspecified; R09.02 Hypoxemia; Z88.0 Allergy status to penicillin; Z88.5 Allergy status to narcotic agent; Z88.1 Allergy status to other antibiotic agents
CPT/HCPCS: 00790; 36415; 80053; 82040; 82150; 82945; 82962; 83615; 84155; 85025; 87070; 87205; 89050; 94761; 97162-GP; 97165-GO; 97530-GO; 97530-GP; 97535-GO; A9270-GY; G0378; J0690; J2001; J2405; J2704; J3010; J7030; J7120

== ENCOUNTER 2020-05-29 12:16 | Emergency (ER) | payer MEDICARE, BC ==
[2020-05-29 12:47] VITALS: BP 126/54
[2020-05-29] MEDS ORDERED: Sodium Chloride 0.9% 10 ML Syringe FLUSH PRN (12:58)
[2020-05-29] MEDS ORDERED: HYDROmorphone 0.5 MG/0.5 ML Syringe IVPUSH ONE ×2 (12:58→14:39)
--- NOTE | 2020-05-29 13:46 | CR ---
Chest: Portable view of the chest was obtained. Comparison: Prior chest CT study of 11/15/19 and chest x-ray of 05/18/15. Findings: Lungs: Thick areas of atelectasis are seen within the left base as well as lesser areas of atelectasis within the right base. Lungs otherwise are clear. Heart and mediastinum: Heart and mediastinum are within normal limits for portable technique. Osseous: Osteopenia without acute abnormality. Impression: 1. Areas of atelectasis within both lung bases. 2. No additional abnormality is appreciated on portable chest x-ray. Diagnostic code #3
[2020-05-29] MEDS ORDERED: Sodium Chloride 0.9% 10 ML Syringe FLUSH ONE (14:27)
[2020-05-29] MEDS ORDERED: Iopamidol 755 Mg/ML 100 ML Bottle IVPUSH ONE (14:27)
[2020-05-29] MEDS ORDERED: Sodium Chloride 0.9% 100 ML IV SCH (14:30)
[2020-05-29] MEDS ORDERED: oxyCODONE 5 MG Tab PO ONE (15:05)
--- NOTE | 2020-05-29 15:45 | EDM.PDOC ---
ED HPI GENERAL MEDICAL PROBLEM - General Chief Complaint: Chest Pain Stated Complaint: CHEST PAIN Time Seen by Provider: 05/29/20 12:45 Source of Information: Reports: Patient History Limitations: Reports: No Limitations - History of Present Illness INITIAL COMMENTS - FREE TEXT/NARRATIVE: The patient presents with right sided chest pain. This started at about 0115 this morning. She had cholecystectomy by Dr Zuniga on Monday. 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 She needed 5L by [place] after the surgery and was admitted for a few days. She was sent home yesterday with oxygen. She has no history of lung problems like asthma or COPD. She does not smoke. She has no fever, chills, cough, congestion, runny nose, nausea, vomiting or dysuria. She does have some generalized abdominal pain due to the surgery. Onset: Gradual Duration: Hour(s): (0115 this morning) Location: Reports: Chest Quality: Reports: Sharp Severity: Moderate Improves with: Reports: None Worsens with: Reports: None Associated Symptoms: Reports: Chest Pain, Shortness of Breath. Denies: Cough, Fever/Chills, Headaches, Nausea/Vomiting Chest Pain Score (Numeric/FACES): 8 - Related Data Allergies Allergy/AdvReac Type Severity Reaction Status Date / Time amoxicillin [Amoxicillin] Allergy Intermediate Rash Verified 05/29/20 12:38 codeine Allergy Intermediate Rash Verified 05/29/20 12:38 Luqjaez-One-Vli Reductase AdvReac Mild Body Aches Verified 05/29/20 12:38 Inhibitor Home Meds: Home Meds Amitriptyline [Elavil] 10 mg PO 1700 09/27/13 [History] Gemfibrozil 600 mg PO 1700 09/27/13 [History] Levothyroxine Sodium [Synthroid] 150 mcg PO DAILY 09/27/13 [History] ALPRAZolam [Xanax] 0.5 mg PO QID PRN 10/08/15 [History] Omeprazole [priLOSEC OTC] 20 mg PO ASDIRECTED PRN 07/26/17 [History] Denosumab [Prolia] 60 mg .XX ASDIRECTED 11/15/19 [History] Albuterol Sulfate [Albuterol Sulfate Hfa] 1 puff INH ASDIRECTED PRN 05/20/20 [History] oxyCODONE 10 mg PO Q6H PRN 3 Days #24 tablet 05/28/20 [Rx] polyethylene glycoL 3350 [MiraLAX] 17 gm PO DAILY 30 Days #30 packet 05/28/20 [Rx] Past Medical History HEENT History: Reports: Cataract, Epistaxis Cardiovascular History: Reports: Angina, Congenital Septal Defect, High Cholesterol, Hypertension, SOB on Exertion Respiratory History: Reports: SOB, Other (See Below) Other Respiratory History: pleurisy Gastrointestinal History: Reports: GERD, Hemorrhoids, Irritable Bowel Syndrome Other Gastrointestinal History: gastric ulcer Genitourinary History: Reports: Other (See Below) Other Genitourinary History: renal artery stenosis [employer] History: Reports: Musculoskeletal History: Reports: Osteoporosis, Other (See Below) Other Musculoskeletal History: DDD, cervical disc disease -FROM noted Neurological History: Reports: Other (See Below) 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 Psychiatric History: Reports: Anxiety, Depression Endocrine/Metabolic History: Reports: Hyperparathyroidism Hematologic History: Reports: Anemia, B12 Deficiency, Other (See Below) Other Hematologic History: hypercalcemia Dermatologic History: Reports: Other (See Below) Other Dermatologic History: soft tissue disorder - Infectious Disease History Infectious Disease History: Reports: Measles - Past Surgical History HEENT Surgical History: Reports: Cataract Surgery Other HEENT Surgeries/Procedures: sinus surgery GI Surgical History: Reports: Cholecystectomy, Other (See Below) Other GI Surgeries/Procedures: hemorrhoidectomy Endocrine Surgical History: Reports: Thyroidectomy Neurological Surgical History: Reports: Spinal Fusion Musculoskeletal Surgical History: Reports: Knee Replacement Other Musculoskeletal Surgeries/Procedures:: neck fusion c4 and c5 Social & Family History - Family History Family Medical History: No Pertinent Family History - Tobacco Use Tobacco Use Status *Q: Never Tobacco User - Caffeine Use Caffeine Use: Reports: Coffee - Recreational Drug Use Recreational Drug Use: No - Living Situation & Occupation Occupation: Retired ED ROS GENERAL - Review of Systems Review Of Systems: See Below Constitutional: Reports: No Symptoms HEENT: Reports: No Symptoms Respiratory: Reports: Shortness of Breath Cardiovascular: Reports: Chest Pain Endocrine: Reports: No Symptoms GI/Abdominal: Reports: No Symptoms : Reports: No Symptoms Musculoskeletal: Reports: No Symptoms ED EXAM, GENERAL - Physical Exam Exam: See Below Exam Limited By: No Limitations General Appearance: Alert, No Apparent Distress Ears: Normal External Exam Nose: Normal Inspection Throat/Mouth: Normal Inspection Head: Atraumatic, Normocephalic Neck: Normal Inspection Respiratory/Chest: No Respiratory Distress, Lungs Clear, Normal Breath Sounds Cardiovascular: Regular Rate, Rhythm, No Edema, No Murmur GI/Abdominal: Soft, Non-Tender, No Organomegaly, No Mass Back Exam: Normal Inspection Extremities: Normal Inspection Neurological: Alert, Oriented, No Motor/Sensory Deficits #1 Interpretation EKG Date: 05/29/20 Time: 12:50 Rhythm: Other (sinus tachycardia) Rate (Beats/Min): 104 [place]: LAD-Left [place] Deviation P-Wave: Present QRS: Normal ST-T: Normal QT: Normal Course - Vital Signs Last Recorded V/S: Last Vital Signs Temp 98.3 F 05/29/20 12:39 Pulse 74 05/29/20 12:39 Resp 23 H 05/29/20 12:39 BP 126/54 L 05/29/20 12:39 Pulse Ox 100 05/29/20 12:39 - Orders/Labs/Meds Orders: Active Orders 24 hr Category Date Time Status Cardiac Monitoring [RC] . DIRECTED Care 05/29/20 12:58 Active EKG Documentation Completion [RC] STAT Care 05/29/20 12:58 Active Oxygen Therapy [RC] PRN Care 05/29/20 12:58 Active Peripheral IV Care [RC] . DIRECTED Care 05/29/20 12:58 Active COVID-19/FLU A+B [MOLEC] Stat Lab 05/29/20 16:55 Ordered Sodium Chloride 0.9% [Normal Saline] 100 ml Med 05/29/20 14:30 Active IV ASDIRECTED Sodium Chloride 0.9% [Saline Flush] Med 05/29/20 12:58 Active 10 ml FLUSH ASDIRECTED PRN Peripheral IV Insertion Adult [OM.PC] Stat Oth 05/29/20 12:58 Ordered Medication Orders Sodium Chloride (Normal Saline) 100 mls @ 60 mls/hr IV ASDIRECTED JERMAIN Last Admin: 05/29/20 15:36 Dose: 60 mls/hr Documented by: JAROCHO Sodium Chloride (Saline Flush) 10 ml FLUSH ASDIRECTED PRN PRN Reason: Keep Vein Open Last Admin: 05/29/20 13:28 Dose: 10 ml Documented by: LES Labs: Laboratory Tests 05/29/20 05/29/20 Range/Units 13:22 13:22 WBC 10.23 H (3.98-10.04) K/mm3 RBC 4.12 (3.98-5.22) M/mm3 Hgb 11.4 (11.2-15.7) gm/dl Hct 36.7 (34.1-44.9) % MCV 89.1 (79.4-94.8) fl MCH 27.7 (25.6-32.2) pg MCHC 31.1 L (32.2-35.5) g/dl RDW Std Deviation 47.3 H (36.4-46.3) fL Plt Count 373 H (182-369) K/mm3 MPV 9.7 (9.4-12.3) fl Neut % (Auto) 72.0 H (34.0-71.1) % Lymph % (Auto) 10.3 L (19.3-51.7) % Wells % (Auto) 11.1 (4.7-12.5) % Eos % (Auto) 5.9 H (0.7-5.8) Baso % (Auto) 0.3 (0.1-1.2) % Neut # (Auto) 7.37 H (1.56-6.13) K/mm3 Lymph # (Auto) 1.05 L (1.18-3.74) K/mm3 Wells # (Auto) 1.14 H (0.24-0.36) K/mm3 Eos # (Auto) 0.60 H (0.04-0.36) K/mm3 Baso # (Auto) 0.03 (0.01-0.08) K/mm3 Sodium 129 L (136-145) mEq/L Potassium 3.8 (3.5-5.1) mEq/L Chloride 95 L (98-107) mEq/L Carbon Dioxide 24 (21-32) mEq/L Anion Gap 13.8 (5-15) BUN 9 (7-18) mg/dL Creatinine 0.9 (0.55-1.02) mg/dL Est Cr Clr Drug Dosing 33.23 mL/min Estimated GFR (MDRD) 59 (>60) mL/min BUN/Creatinine Ratio 10.0 L (14-18) Glucose 142 H (83-115) mg/dL Calcium 7.7 L (8.5-10.1) mg/dL Total Bilirubin 0.6 (0.2-1.0) mg/dL AST 22 (15-37) U/L ALT 42 (14-59) U/L Alkaline Phosphatase 98 (46-116) U/L Troponin I < 0.017 (0.00-0.056) ng/mL C-Reactive Protein 6.3 H* (<1.0) mg/dL Total Protein 6.9 (6.4-8.2) g/dl Albumin 2.8 L (3.4-5.0) g/dl Globulin 4.1 gm/dL Albumin/Globulin Ratio 0.7 L (1-2) Meds: Medications Generic Name Dose Route Start Last Admin Trade Name Freq PRN Reason Stop Dose Admin Sodium Chloride 100 mls @ 60 mls/hr 05/29/20 14:30 05/29/20 15:36 Normal Saline IV 60 mls/hr ASDIRECTED JERMAIN Administration Sodium Chloride 10 ml 05/29/20 12:58 05/29/20 13:28 Saline Flush FLUSH 10 ml ASDIRECTED PRN Administration Keep Vein Open Discontinued Medications Generic Name Dose Route Start Last Admin Trade Name Freq PRN Reason Stop Dose Admin Diazepam 2.5 mg 05/29/20 16:53 05/29/20 17:02 Valium IVPUSH 05/29/20 16:54 2.5 mg ONETIME ONE Administration Hydromorphone HCl 0.5 mg 05/29/20 12:58 05/29/20 13:27 Dilaudid IVPUSH 05/29/20 12:59 0.5 mg ONETIME ONE Administration Hydromorphone HCl 0.5 mg 05/29/20 14:39 05/29/20 14:44 Dilaudid IVPUSH 05/29/20 14:40 0.5 mg ONETIME ONE Administration Iopamidol 100 ml 05/29/20 14:27 05/29/20 15:36 Isovue-370 (76%) IVPUSH 05/29/20 14:28 100 ml ONETIME ONE Administration Oxycodone HCl 5 mg 05/29/20 15:05 05/29/20 15:09 Oxycodone PO 05/29/20 15:06 5 mg ONETIME ONE Administration Sodium Chloride 10 ml 05/29/20 14:27 05/29/20 15:36 Saline Flush FLUSH 05/29/20 14:28 10 ml ONETIME ONE Administration - Re-Assessments/Exams Free Text/Narrative Re-Assessment/Exam: 05/29/20 15:51 I ordered an IV saline lock, oxygen, CXR, EKG and labs. 05/29/20 15:55 Her EKG shows a sinus tachycardia with no acute changes. 05/29/20 17:05 Her WBC is elevated at 10.23. Her Na is low at 129. Her troponin is negative. Her CRP is elevated at 6.3. I did a CT angio of her chest and it showed subpleural nodule within the right lung base which is believed to be incidental. Areas of atelectasis within both lung bases as well as very small right-sided pleural effusion. No findings of pulmonary embolism within the main or segmental branches. Dilated ureter is seen proximally. Etiology is not identified and not included on the exam. Other findings believed to be incidental. I ordered her a couple doses of dilaudid and oxycodone. That did not help with the pain. It is almost like she is having some muscle contractions. I have ordered valium 2.5mg IV to help with the pain. I cannot send her home like this. We have no beds here. I called [facility] and talked with Dr Tyler and he accepted the patient. Departure - Departure Time of Disposition: 17:15 Disposition: DC/Tfer to [facility] 02 Reason for Transfer *Q: Other Condition: Fair Clinical Impression: Chest pain Qualifiers: Chest pain type: unspecified Qualified Code(s): R07.9 - Chest pain, unspecified Referrals: Janene Kuhn NP [Primary Care Provider] - Forms: ED Department Discharge Sepsis Event Note (ED) - Evaluation Sepsis Screening Result: No Definite Risk - Focused Exam Vital Signs: Vital Signs Temp Pulse Resp BP Pulse Ox 05/29/20 12:39 98.3 F 74 23 H 126/54 L 100 - My Orders Last 24 Hours: My Active Orders 05/29/20 12:58 Cardiac Monitoring [RC] . DIRECTED EKG Documentation Completion [RC] STAT Oxygen Therapy [RC] PRN Peripheral IV Care [RC] . DIRECTED Sodium Chloride 0.9% [Saline Flush] 10 ml FLUSH ASDIRECTED PRN Peripheral IV Insertion Adult [OM.PC] Stat 05/29/20 14:30 Sodium Chloride 0.9% [Normal Saline] 100 ml IV ASDIRECTED 05/29/20 16:55 COVID-19/FLU A+B [MOLEC] Stat - Assessment/Plan Last 24 Hours: My Active Orders 05/29/20 12:58 Cardiac Monitoring [RC] . DIRECTED EKG Documentation Completion [RC] STAT Oxygen Therapy [RC] PRN Peripheral IV Care [RC] . DIRECTED Sodium Chloride 0.9% [Saline Flush] 10 ml FLUSH ASDIRECTED PRN Peripheral IV Insertion Adult [OM.PC] Stat 05/29/20 14:30 Sodium Chloride 0.9% [Normal Saline] 100 ml IV ASDIRECTED 05/29/20 16:55 COVID-19/FLU A+B [MOLEC] Stat
--- NOTE | 2020-05-29 16:18 | CT ---
CT chest Technique: Multiple axial sections through the chest were obtained. Intravenous contrast was utilized. Study performed as a pulmonary angiogram. Findings: Pulmonary arteries are moderately well opacified. No filling defects are seen within the main or segmental branches. Mediastinum and heart: Aorta shows mild atherosclerotic calcification with no aneurysm. Small mediastinal lymph nodes are seen which are believed to be normal. Heart size shows no pericardial thickening. Visualized upper abdominal structures: Slightly prominent right proximal ureter is seen. There is increased density within the lateral left abdominal wall suggesting mild soft tissue edema. Lungs: Small subpleural nodule is noted within the right lung base measuring 4 mm. Areas of atelectasis are seen within both lung bases. Very small right-sided pleural effusion is seen. Lungs otherwise are clear with no acute infiltrates being seen. Osseous: Scattered disc space narrowing and endplate osteophytes are seen within the thoracic spine. No acute osseous finding is appreciated. Very small pericardial fluid is seen next to the liver. Impression: 1. Subpleural nodule within the right lung base which is believed to be incidental. 2. Areas of atelectasis within both lung bases as well as very small right-sided pleural effusion. 3. No findings of pulmonary embolism within the main or segmental branches. 4. Dilated ureter is seen proximally. Etiology is not identified and not included on the exam. 5. Other findings believed to be incidental as noted above. Diagnostic code #3
[2020-05-29 18:02] LABS: CORONAVIRUS COVID-19 NAA NEGATIVE (NEGATIVE)
[2020-05-29 18:24] VITALS: PULSE 70
== END 2020-05-29 18:05 ==
LOC: JD.ED 12:16
DX: R07.9 Chest pain, unspecified (principal); R00.0 Tachycardia, unspecified; I10 Essential (primary) hypertension; F41.9 Anxiety disorder, unspecified; F32.9 Major depressive disorder, single episode, unspecified; E21.3 Hyperparathyroidism, unspecified; Z88.1 Allergy status to other antibiotic agents; Z88.5 Allergy status to narcotic agent; Z88.8 Allergy status to other drugs, medicaments and biological substances; Z79.899 Other long term (current) drug therapy
CPT/HCPCS: 0240U; 36415; 71045; 71045-26; 71275; 71275-26; 80053; 84484; 85025; 86140; 93005; 93010; 96374; 96375; 96376; 99284; 99285-25; A9270-GY; J1170; J3360; Q9967

== ENCOUNTER 2020-05-31 21:23 | Inpatient (IN) | payer MEDICARE, BC ==
[2020-05-31] MEDS ORDERED: HYDROmorphone 0.5 MG/0.5 ML Syringe IVPUSH ONE ×3 (22:02→23:21)
--- NOTE | 2020-05-31 22:03 | EDM.PDOC ---
ED HPI GENERAL MEDICAL PROBLEM - General Chief Complaint: Chest Pain Stated Complaint: SEVERE CHEST PAIN SOB Time Seen by Provider: 05/31/20 21:33 Source of Information: Reports: Patient, Old Records (U/S 05/13/2020, admission 05/25/2020, ED visit 05/29/2020) History Limitations: Reports: No Limitations - History of Present Illness INITIAL COMMENTS - FREE TEXT/NARRATIVE: Mrs. Rodriguez is a very pleasant 85-year-old woman who, medical records indicate, underwent a laparoscopic cholecystectomy on 05/25/2020. A preoperative ultrasound of the right upper quadrant on 05/13/2020 found biliary sludge and ascites. 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 Postoperatively, the patient had hypoxemia and significant pain, therefore she was admitted until 05/28/2020, at which time she was discharged home on 1 L of supplemental oxygen and oxycodone. The patient was seen in this ED 2 days ago, on 04/29/2020, with a complaint of right-sided chest pain ever since she woke up from surgery. She was found to be hemodynamically stable and afebrile. Her physical exam found clear lungs. An ECG found sinus tachycardia at 104 bpm and a left axis deviation. Work-up included a CBC, CMP, troponin, CRP, a swab for the SARS-CoV-2 virus, and a CT angiogram of the chest. Her blood work was remarkable for a CRP elevated at 6.3, otherwise, the remainder of her blood work was unremarkable. Her swab for the SARS-CoV-[address] angiogram of her chest found a very small right-sided pleural effusion, but no pulmonary embolus or other significant findings. Because of her level of pain, the ED Physician did not feel that she was fit for discharge home, and made arrangements for her to be admitted to [facility] (no beds were available at this facility), however, the patient subsequently felt better and elected to go home. The patient now returns to the ED stating that she has continued to have right- sided chest pain radiating to her central chest, and significant dyspnea. She describes the pain as "stabs", except that it is constant. She states that her pain is made worse if she is supine. She has not identified any other modifiers. Her dyspnea is present even if at rest. No recent fever, nausea, vomiting, or diarrhea. She states that she has been constipated, most likely due to the oxycodone that she is now taking at an increased dose of 10 mg every 6 hours. She is not really sure that it helps her pain much. Here in the ED, the patient's initial BP is found to be elevated at 192/81, with a tachycardia of 134 bpm. She is tachypneic at 31 rpm. Is afebrile, saturating in the high 80s on room air, and 98% on 2 L of oxygen per nasal cannula. The patient states that due to a combination of bad knees, poor balance, and spinal stenosis, she has been falling for the past couple of weeks. The patient's PCP is Janene Kuhn NP. Her Surgeon is Dr. Perfecto Laura. Chest Pain Score (Numeric/FACES): 10 - Related Data Allergies Allergy/AdvReac Type Severity Reaction Status Date / Time amoxicillin [Amoxicillin] Allergy Intermediate Rash Verified 05/31/20 21:37 codeine Allergy Intermediate Rash Verified 05/31/20 21:37 Awkdsuh-Oxy-Gqu Reductase AdvReac Mild Body Aches Verified 05/31/20 21:37 Inhibitor Home Meds: Home Meds Amitriptyline [Elavil] 10 mg PO 1700 09/27/13 [History] Gemfibrozil 600 mg PO 1700 09/27/13 [History] Levothyroxine Sodium [Synthroid] 150 mcg PO DAILY 09/27/13 [History] ALPRAZolam [Xanax] 0.5 mg PO QID PRN 10/08/15 [History] Omeprazole [priLOSEC OTC] 20 mg PO ASDIRECTED PRN 07/26/17 [History] Denosumab [Prolia] 60 mg .XX ASDIRECTED 11/15/19 [History] Albuterol Sulfate [Albuterol Sulfate Hfa] 1 puff INH ASDIRECTED PRN 05/20/20 [History] oxyCODONE 10 mg PO Q6H PRN 3 Days #24 tablet 05/28/20 [Rx] polyethylene glycoL 3350 [MiraLAX] 17 gm PO DAILY 30 Days #30 packet 05/28/20 [Rx] Past Medical History Cardiovascular History: Reports: Congenital Septal Defect, High Cholesterol, Hypertension Gastrointestinal History: Reports: GERD, Hemorrhoids, Irritable Bowel Syndrome, PUD Genitourinary History: Reports: Other (See Below) (Renal artery stenosis) Musculoskeletal History: Reports: Osteoporosis, Other (See Below) (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) Psychiatric History: Reports: Anxiety, Depression Endocrine/Metabolic History: Reports: Hyperparathyroidism, Hypothyroidism Hematologic History: Reports: Anemia, B12 Deficiency - Infectious Disease History Infectious Disease History: Reports: Measles - Past Surgical History HEENT Surgical History: Reports: Cataract Surgery Cardiovascular Surgical History: Reports: Other (See Below) (Nasal artery embolization 2011, 2014) GI Surgical History: Reports: Cholecystectomy (05/25/2020), Other (See Below) (Hemorrhoidectomy) Endocrine Surgical History: Reports: Thyroidectomy Neurological Surgical History: Reports: C-Spine (C4-C5 fusion), Spinal Fusion Musculoskeletal Surgical History: Reports: Knee Replacement Social & Family History - Family History Family Medical History: No Pertinent Family History - Tobacco Use Tobacco Use Status *Q: Never Tobacco User Second Hand Smoke Exposure: No - Caffeine Use Caffeine Use: Reports: None - Alcohol Use Alcohol Use History: No - Recreational Drug Use Recreational Drug Use: No - Living Situation & Occupation Living situation: Reports: , Alone Occupation: Retired ED ROS GENERAL - Review of Systems Review Of Systems: Comprehensive ROS is negative, except as noted in HPI. ED EXAM, GENERAL - Physical Exam Exam: See Below Exam Limited By: No Limitations General Appearance: Alert, WD/WN, Mild Distress (Appears uncomfortable) Eye Exam: Bilateral Eye: EOMI, Normal Inspection Ears: Normal External Exam, Hearing Loss Nose: Normal Inspection Throat/Mouth: Normal Inspection, Normal Lips, Normal Voice, No Airway Compromise Head: Atraumatic, Normocephalic Neck: Normal Inspection, Full Range of Motion Respiratory/Chest: No Respiratory Distress, Lungs Clear, Normal Breath Sounds, No Accessory Muscle Use, Other (Chest tenderness with even light palpation of her anterior chest, such as with my stethoscope) Cardiovascular: Normal Peripheral Pulses, No Gallop, No JVD, No Murmur, No Rub, Tachycardia (regular) Peripheral Pulses: 3+: Radial (L), Radial (R) GI/Abdominal: Normal Bowel Sounds, Soft, No Organomegaly, No Distention, No Abnormal Bruit, No Mass, Tender (Mild, periIncisional) Back Exam: Normal Inspection, Full Range of Motion, NT Extremities: Normal Inspection, Normal Range of Motion, Normal Capillary Refill Neurological: Alert, Oriented, Normal Cognition, No Motor/Sensory Deficits Psychiatric: Normal Affect Skin Exam: Warm, Dry, Intact, Normal Color, No Rash #1 Interpretation EKG Date: 05/31/20 Time: 21:36 Rhythm: Other (Sinus tachycardia) Rate (Beats/Min): 131 Lincoln: LAD-Left Lincoln 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) P-Wave: Present QRS: Normal ST-T: Normal QT: Normal Comparison: No Change (11/15/2019) Course - Vital Signs Last Recorded V/S: Last Vital Signs Temp 36.6 C 05/31/20 21:32 Pulse 134 H 05/31/20 21:32 Resp 31 H 05/31/20 21:32 BP 192/81 H 05/31/20 21:32 Pulse Ox 98 05/31/20 21:32 - Orders/Labs/Meds Orders: Active Orders 24 hr Category Date Time Status EKG 12 Lead [EKG Documentation Completion] [RC] URGENT Care 05/31/20 21:29 Active Labs: Laboratory Tests 05/31/20 05/31/20 Range/Units 21:35 21:35 WBC 13.53 H (3.98-10.04) K/mm3 RBC 4.42 (3.98-5.22) M/mm3 Hgb 12.4 (11.2-15.7) gm/dl Hct 39.0 (34.1-44.9) % MCV 88.2 (79.4-94.8) fl MCH 28.1 (25.6-32.2) pg MCHC 31.8 L (32.2-35.5) g/dl RDW Std Deviation 48.0 H (36.4-46.3) fL Plt Count 412 H (182-369) K/mm3 MPV 10.4 (9.4-12.3) fl Neutrophils % (Manual) 68 H (40-60) % Band Neutrophils % 0 (0-10) % Lymphocytes % (Manual) 16 L (20-40) % Atypical Lymphs % 0 % Monocytes % (Manual) 11 H (2-10) % Eosinophils % (Manual) 5 (0.7-5.8) % Basophils % (Manual) 0 L (0.1-1.2) Platelet Estimate Increased Plt Morphology Comment Normal RBC Morph Comment Normal Sodium 129 L (136-145) mEq/L Potassium 4.0 (3.5-5.1) mEq/L Chloride 93 L (98-107) mEq/L Carbon Dioxide 23 (21-32) mEq/L Anion Gap 17.0 H (5-15) BUN 15 (7-18) mg/dL Creatinine 1.0 (0.55-1.02) mg/dL Est Cr Clr Drug Dosing 29.91 mL/min Estimated GFR (MDRD) 52 (>60) mL/min BUN/Creatinine Ratio 15.0 (14-18) Glucose 164 H (83-115) mg/dL Calcium 8.5 (8.5-10.1) mg/dL Magnesium 1.7 L (1.8-2.4) mg/dl Total Bilirubin 0.5 (0.2-1.0) mg/dL AST 26 (15-37) U/L ALT 65 H (14-59) U/L Alkaline Phosphatase 124 H (46-116) U/L Troponin I < 0.017 (0.00-0.056) ng/mL Total Protein 8.1 (6.4-8.2) g/dl Albumin 3.1 L (3.4-5.0) g/dl Globulin 5.0 gm/dL Albumin/Globulin Ratio 0.6 L (1-2) Meds: Medications Discontinued Medications Generic Name Dose Route Start Last Admin Trade Name Freq PRN Reason Stop Dose Admin Hydromorphone HCl 0.5 mg 05/31/20 22:02 05/31/20 22:07 Dilaudid IVPUSH 05/31/20 22:03 0.5 mg ONETIME ONE Administration Hydromorphone HCl 0.5 mg 05/31/20 22:40 05/31/20 22:45 Dilaudid IVPUSH 05/31/20 22:41 0.5 mg ONETIME ONE Administration - Re-Assessments/Exams Free Text/Narrative Re-Assessment/Exam: 05/31/20 21:59 As above, the patient has returned to the ED with continued right-sided chest pain radiating to her central chest, along with significant dyspnea, even at rest. The etiology of her pain is not well understood, although a CT angiogram on 05/29/2020 found a small right pleural effusion, and the patient mentioned that her pain is worse if she lies down, which would be consistent with pain stemming from a pleural effusion. Of interest, the patient reports significant tenderness to palpation anywhere on her chest, even with light touch from my stethoscope. Could her chest pain be due to undiagnosed metastases to her chest wall? Like Dr. Dougherty 2 days ago, I do not feel that the patient can safely be discharged home. She is a and lives alone. Her pain is not well controlled on oxycodone, and she also states that she falls due to poor knees, poor balance, and spinal stenosis. I discussed the case with Dr. Bills, who is here in the ED. He agreed to admit the patient for failure to thrive. I will order PT and OT to evaluate in the morning. For tonight's purposes, I will order some blood work to make sure that nothing significant has changed since 2 days ago. She will be given judicious doses of IV Dilaudid to see if we can get her more comfortable. 05/31/20 22:46 The patient's CBC is remarkable for mild leukocytosis at 13.53, but with 0% bandemia. She has mild thrombocytosis of 412, with the remainder of her CBC being unremarkable. Her CMP is remarkable for hyponatremia of 129, and anion gap slightly elevated at 17.0 but with a bicarbonate normal at 23, hyperglycemia of 164, and alkaline phosphatase slightly elevated at 124, with the remainder of her CMP being unremarkable. She has mild hypomagnesemia of 1.7. Her troponin is undetectably low. Based on the above, I believe the patient is medically fit for admission to the hospital. 05/31/20 22:54 Notified by Priya ALVAREZ that the patient wishes to be DNR/DNI. Also notified that the patient's swab for the SARS-CoV-2 virus that was performed 2 days ago is good for 72 hours, therefore it does not need to be repeated tonight. Departure - Departure Time of Disposition: 22:48 Disposition: Admitted As Inpatient 64 Condition: Fair Clinical Impression: Failure to thrive, Abdominal carcinomatosis, Pleuritic chest pain - Discharge Information *PRESCRIPTION DRUG MONITORING PROGRAM REVIEWED*: Not Applicable *COPY OF PRESCRIPTION DRUG MONITORING REPORT IN PATIENT GUILLERMINA: Not Applicable Referrals: Janene Kuhn NP [Ordering Only Provider] - Perfecto Laura MD [Physician] - Forms: ED Department Discharge Sepsis Event Note (ED) - Evaluation Sepsis Screening Result: No Definite Risk - Focused Exam Vital Signs: Vital Signs Temp Pulse Resp BP Pulse Ox 05/31/20 21:32 36.6 C 134 H 31 H 192/81 H 98 - My Orders Last 24 Hours: My Active Orders 05/31/20 21:29 EKG 12 Lead [EKG Documentation Completion] [RC] URGENT - Assessment/Plan Last 24 Hours: My Active Orders 05/31/20 21:29 EKG 12 Lead [EKG Documentation Completion] [RC] URGENT
[2020-06-01] MEDS ORDERED: Ondansetron 4 MG/2 ML SDV IVPUSH PRN (00:40)
[2020-06-01] MEDS: HYDROmorphone 0.5 MG/0.5 ML Syringe IVPUSH PRN ×5 (04:10→15:07)
[2020-06-01] MEDS ORDERED: Sodium Chloride 0.9% 10 ML Syringe FLUSH PRN ×2 (08:09→09:00)
[2020-06-01] MEDS ORDERED: Acetaminophen 325 MG Tab PO PRN (08:09)
[2020-06-01] MEDS ORDERED: Magnesium Hydroxide 400 MG/5 ML Susp 30 ML Cup PO PRN (08:57)
[2020-06-01] MEDS ORDERED: Enoxaparin 30 MG/0.3 ML Syringe SUBCUT SCH (09:00)
[2020-06-01] MEDS ORDERED: Magnesium Sulfate/Water 2 GM/50 ML BAG IV ONE (09:00)
[2020-06-01] MEDS ORDERED: Iopamidol 612 MG/ML 100 ML Bottle IVPUSH ONE (09:00)
[2020-06-01] MEDS: oxyCODONE 5 MG Tab PO PRN ×2 (09:00→15:12)
--- NOTE | 2020-06-01 10:24 | CT ---
CT abdomen and pelvis Technique: Multiple axial sections were obtained through the abdomen from above the dome of the diaphragm inferiorly to the mid pelvis. Intravenous contrast was utilized. No oral contrast was given. Reconstructed coronal and sagittal images were obtained. Comparison: No prior CT abdomen study is available. Findings: Small bilateral pleural effusions are noted as well as increased density within both lung bases either due to atelectasis or pneumonia. Liver and spleen: No discrete abnormality is seen. Surgical clips are noted from prior cholecystectomy. Adrenal glands: No nodule is seen. Kidneys: Kidneys showed normal contrast enhancement without hydronephrosis or mass. Dilated right ureter seen on prior study is not seen on current study. Pancreas: Pancreas is atrophied without focal abnormality. Aorta and retroperitoneum: Aorta shows atherosclerotic change without aneurysm. No retroperitoneal adenopathy is seen. Mesentery: There is soft tissue density within the anterior mesentery. This finding is suspicious for possible mesenteric metastasis. Appendix: Partially seen and appears within normal limits in size. Osseous: Scattered degenerative change is noted throughout the spine. No acute osseous finding is definitely appreciated. Hemangioma is noted within L2 which is incidental. Impression: 1. Increased mesenteric densities anteriorly. Difficult to exclude mesenteric metastasis. Repeat CT study with IV and oral contrast of the abdomen and pelvis could be considered to confirm. 2. Small bilateral pleural effusions with increasing density within both lung base either due to prominent atelectasis or pneumonia. 3. Other findings as noted above which are not acute. Diagnostic code #9
--- NOTE | 2020-06-01 10:36 | CR ---
Chest: 2 views of the chest were obtained. Comparison: Prior chest x-ray of 05/29/20. Findings: Lungs: Increasing density within both sides of the chest as an interval change from prior exam. Lungs are poorly inflated compatible with limited inspiratory effort. Minimal blunting of posterior costophrenic angles are seen compatible with small pleural effusions. Heart and mediastinum: Heart size is stable. Tortuous thoracic aorta is noted. Osseous: Bony structures appear osteopenic. Previous lower spine surgery is noted. Impression: 1. Increasing density within both lung bases. As mentioned on CT abdomen and pelvis, this could represent increasing atelectasis as well as pneumonia. 2. Small bilateral pleural effusions. Diagnostic code #3
--- NOTE | 2020-06-01 10:43 | PCM.CONS ---
H&P History of Present Illness - General Date of Service: 06/01/20 Admit Problem/Dx: Admission Diagnosis/Problem Admission Diagnosis/Problem Failure to thrive Source of Information: Patient, Provider History Limitations: Reports: Other (patient is tired) - History of Present Illness Initial Comments - Free Text/Narative: Patient had lap meliton on 05/25/2020. Intraoperatively she was found to have ascites and carcinomatosis. Her post op stay was complicated by pain, and SOB She was eventually discharged on 05/28/2020 to home with home health. On the early AM on 05/29 she had recurrence of sharp right chest pain which induced SOB. She presented to the ED where CTA was unremarkable except for small right sided pleural effusion. Labs were remarkable for hyponatremia. Her pain was treated and she returned home. She presented again this AM with right chest pain and SOB. In the ED she was tachycardic, tachypneic and hypertensive. Her chest pain was managed with medications and she was admitted. Labs were remarkable for WBC of 13, hyponatremia and hypochloremia. Her tachycardia improved but her SOB and labored breathing remained. Onset of Symptoms: Reports: Gradual Duration of Symptoms: Reports: Day(s): (2) Location: Reports: Chest Quality: Reports: Sharp Severity: Moderate Improves with: Reports: Medication Worsens with: Reports: Breathing Associated Symptoms: Reports: Chest Pain Chest Pain Score (Numeric/FACES): 5 - Related Data Allergies/Adverse Reactions: Allergies Allergy/AdvReac Type Severity Reaction Status Date / Time amoxicillin [Amoxicillin] Allergy Intermediate Rash Verified 05/31/20 23:45 codeine Allergy Intermediate Rash Verified 05/31/20 23:45 [id number] Reductase AdvReac Mild Body Aches Verified 05/31/20 23:45 Inhibitor Home Medications: Home Meds Amitriptyline [Elavil] 10 mg PO 1700 09/27/13 [History] Gemfibrozil 600 mg PO 1700 09/27/13 [History] Levothyroxine Sodium [Synthroid] 150 mcg PO DAILY 09/27/13 [History] ALPRAZolam [Xanax] 0.5 mg PO QID PRN 10/08/15 [History] Omeprazole [priLOSEC OTC] 20 mg PO ASDIRECTED PRN 07/26/17 [History] Denosumab [Prolia] 60 mg .XX ASDIRECTED 11/15/19 [History] Albuterol Sulfate [Albuterol Sulfate Hfa] 1 puff INH ASDIRECTED PRN 05/20/20 [History] oxyCODONE 10 mg PO Q6H PRN 3 Days #24 tablet 05/28/20 [Rx] polyethylene glycoL 3350 [MiraLAX] 17 gm PO DAILY 30 Days #30 packet 05/28/20 [Rx] Past Medical History HEENT History: Reports: Cataract, Epistaxis Cardiovascular History: Reports: Congenital Septal Defect, High Cholesterol, Hypertension Respiratory History: Reports: SOB, Other (See Below) Other Respiratory History: pleurisy Gastrointestinal History: Reports: GERD, Hemorrhoids, Irritable Bowel Syndrome, PUD Other Gastrointestinal History: gastric ulcer Genitourinary History: Reports: Other (See Below) Other Genitourinary History: renal artery stenosis TAPE STRINGER History: Reports: Musculoskeletal History: Reports: Osteoporosis, Other (See Below) Other Musculoskeletal History: DDD, cervical disc disease -FROM noted Neurological History: Reports: Other (See Below) 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 Psychiatric History: Reports: Anxiety, Depression Endocrine/Metabolic History: Reports: Hyperparathyroidism, Hypothyroidism Do You Give Correction Boluses or Sliding Scale: No Hematologic History: Reports: Anemia, B12 Deficiency Other Hematologic History: hypercalcemia Oncologic (Cancer) History: Reports: Other (See Below) Other Oncologic History: abdominal carcinomatosis Dermatologic History: Reports: Other (See Below) Other Dermatologic History: soft tissue disorder - Infectious Disease History Infectious Disease History: Reports: Measles - Past Surgical History HEENT Surgical History: Reports: Cataract Surgery, Naso-Sinus Surgery Other HEENT Surgeries/Procedures: sinus surgery Cardiovascular Surgical History: Reports: Other (See Below) GI Surgical History: Reports: Cholecystectomy, Other (See Below) Other GI Surgeries/Procedures: hemorrhoidectomy Endocrine Surgical History: Reports: Thyroidectomy Neurological Surgical History: Reports: C-Spine, Spinal Fusion Musculoskeletal Surgical History: Reports: Knee Replacement Other Musculoskeletal Surgeries/Procedures:: neck fusion c4 and c5 Social & Family History - Family History Family Medical History: No Pertinent Family History - Tobacco Use Tobacco Use Status *Q: Former Tobacco User Used Tobacco, but Quit: No Second Hand Smoke Exposure: No - Caffeine Use Caffeine Use: Reports: Coffee Other Caffeine Use: tries to have a cup of coffee a day on rare occassion will have a pop. - Recreational Drug Use Recreational Drug Use: No - Living Situation & Occupation Living situation: Reports: , Alone Occupation: Retired H&P Review of Systems - Review of Systems: Review Of Systems: See Below General: Reports: Other (SOB) HEENT: Reports: No Symptoms Pulmonary: Reports: Shortness of Breath, Pleuritic Chest Pain Cardiovascular: Reports: Other (tachycardia) Gastrointestinal: Reports: Abdominal Pain (mild) Genitourinary: Reports: No Symptoms Musculoskeletal: Reports: No Symptoms Skin: Reports: No Symptoms Psychiatric: Reports: No Symptoms Exam - Exam Exam: See Below - Vital Signs Vital Signs: Last Vital Signs Temp 98.6 F 06/01/20 08:06 Pulse 124 H 06/01/20 08:06 Resp 20 06/01/20 08:06 BP 116/52 L 06/01/20 08:06 Pulse Ox 91 L 06/01/20 08:43 Weight: 75.16 kg - Exam Quality Assessment: Supplemental Oxygen (3L) General: Alert, Oriented, Cooperative Lungs: Crackles (in lower lungs), Other (labored breathing) Cardiovascular: Regular Rate, Regular Rhythm, Normal S1, Normal S2 GI/Abdominal Exam: Soft, No Abnormal Bruit, Distended (slightly), Tender (slightly tender around the incisions) - Patient Data Lab Results Last 24 hrs: Laboratory Results - last 24 hr 05/31/20 05/31/20 Range/Units 21:35 21:35 WBC 13.53 H (3.98-10.04) K/mm3 RBC 4.42 (3.98-5.22) M/mm3 Hgb 12.4 (11.2-15.7) gm/dl Hct 39.0 (34.1-44.9) % MCV 88.2 (79.4-94.8) fl MCH 28.1 (25.6-32.2) pg MCHC 31.8 L (32.2-35.5) g/dl RDW Std Deviation 48.0 H (36.4-46.3) fL Plt Count 412 H (182-369) K/mm3 MPV 10.4 (9.4-12.3) fl Neutrophils % (Manual) 68 H (40-60) % Band Neutrophils % 0 (0-10) % Lymphocytes % (Manual) 16 L (20-40) % Atypical Lymphs % 0 % Monocytes % (Manual) 11 H (2-10) % Eosinophils % (Manual) 5 (0.7-5.8) % Basophils % (Manual) 0 L (0.1-1.2) Platelet Estimate Increased Plt Morphology Comment Normal RBC Morph Comment Normal Sodium 129 L (136-145) mEq/L Potassium 4.0 (3.5-5.1) mEq/L Chloride 93 L (98-107) mEq/L Carbon Dioxide 23 (21-32) mEq/L Anion Gap 17.0 H (5-15) BUN 15 (7-18) mg/dL Creatinine 1.0 (0.55-1.02) mg/dL Est Cr Clr Drug Dosing 29.91 mL/min Estimated GFR (MDRD) 52 (>60) mL/min BUN/Creatinine Ratio 15.0 (14-18) Glucose 164 H (83-115) mg/dL Calcium 8.5 (8.5-10.1) mg/dL Magnesium 1.7 L (1.8-2.4) mg/dl Total Bilirubin 0.5 (0.2-1.0) mg/dL AST 26 (15-37) U/L ALT 65 H (14-59) U/L Alkaline Phosphatase 124 H (46-116) U/L Troponin I < 0.017 (0.00-0.056) ng/mL Total Protein 8.1 (6.4-8.2) g/dl Albumin 3.1 L (3.4-5.0) g/dl Globulin 5.0 gm/dL Albumin/Globulin Ratio 0.6 L (1-2) Result Diagrams: 05/31/20 21:35 05/31/20 21:35 Sepsis Event Note - Evaluation Sepsis Screening Result: No Definite Risk - Focused Exam Vital Signs: Vital Signs Temp Pulse Resp BP Pulse Ox Pulse Ox 06/01/20 08:43 91 L 06/01/20 08:06 98.6 F 124 H 20 116/52 L 93 L 06/01/20 04:05 98.2 F 109 H 22 H 113/41 L 92 L 06/01/20 00:10 118 H 20 93 L 05/31/20 23:41 98.4 F 132 H 28 H 136/64 92 L Consult PN Assessment/Plan Procedures: Procedures ASSAY OF MAGNESIUM (11/15/19) ASSAY OF NATRIURETIC PEPTIDE (11/15/19) ASSAY OF TROPONIN QUANT (04/20/20) BL SMEAR W/DIFF WBC COUNT (11/23/18) C-REACTIVE PROTEIN (11/15/19) CHEST X-RAY 1 VIEW FRONTAL (05/18/15) COMPLETE CBC AUTOMATED (11/23/18) COMPLETE CBC W/AUTO DIFF WBC (11/15/19) COMPREHEN METABOLIC PANEL (11/15/19) CONTROL OF NOSEBLEED (07/25/18) CONTROL OF NOSEBLEED (12/02/17) CONTROL OF NOSEBLEED (11/23/17) CONTROL OF NOSEBLEED (07/26/17) CONTROL OF NOSEBLEED (06/15/14) CONTROL OF NOSEBLEED (04/29/14) CONTROL OF NOSEBLEED (04/04/14) CONTROL OF NOSEBLEED (12/25/13) CREATINE MB FRACTION (11/15/19) CT THORAX W/O DYE (11/15/19) CULTURE OTHR SPECIMN AEROBIC (12/25/14) ECHO EXAM OF ABDOMEN (05/13/20) ELECTROCARDIOGRAM TRACING (11/15/19) EMERGENCY DEPT VISIT (11/15/19) EMERGENCY DEPT VISIT (11/23/18) EMERGENCY DEPT VISIT (07/25/18) EMERGENCY DEPT VISIT (05/18/15) EMERGENCY DEPT VISIT (06/15/14) FIBRIN DEGRADATION QUANT (04/20/20) METABOLIC PANEL TOTAL CA (09/30/13) PROTHROMBIN TIME (11/15/19) RBC SED RATE AUTOMATED (11/23/18) REMOVE EXT HEM GROUPS 2+ (09/30/13) ROUTINE VENIPUNCTURE (11/15/19) THER/PROPH/DIAG INJ IV PUSH (11/15/19) THER/PROPH/DIAG INJ SC/IM (12/02/17) THROMBOPLASTIN TIME PARTIAL (11/15/19) TISSUE EXAM BY PATHOLOGIST (03/24/15) TX/PRO/DX INJ NEW DRUG ADDON (11/15/19) TX/PRO/DX INJ SAME DRUG PLUG STITCHER (07/26/17) URINE BACTERIA CULTURE (09/25/13) Problem List Initiated/Reviewed/Updated: No Plan: Patient has SOB and chest pain, right > left. CT abd shows dense bilateral atelectasis, small bilateral pleural effusions, mild ascites. Pathology shows high grade serous carcinoma. I discussed this with the patient and her son. SHe has carcinomatosis with peritoneal spread and omental caking. - No acute abdominal or chest problem that necessitates surgical intervention - Pain control and oxygen supplementation as needed - Consider checking UA to r/o UTI due to her slight leukocytosis - patient has labored breathing even with good pain control. I am concerned that she might get tired and become more hypoxic. I discussed this with the patient and her son, patient does not want any intubation or resuscitative measures. -Please call with any questions.
--- NOTE | 2020-06-01 13:08 | PCM.HP.2 ---
H&P History of Present Illness - General Date of Service: 06/01/20 Admit Problem/Dx: Admission Diagnosis/Problem Admission Diagnosis/Problem Failure to thrive Source of Information: Provider History Limitations: Reports: Altered Mental Status (Patient is receiving IV Dilaudid. Her son is at the bedside.) - History of Present Illness Initial Comments - Free Text/Narative: Mrs. Rodriguez is a very pleasant 85-year-old woman who, medical records indicate, underwent a laparoscopic cholecystectomy on 05/25/2020. A preoperative ultrasound of the right upper quadrant on 05/13/2020 found biliary sludge and ascites. 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 Postoperatively, the patient had hypoxemia and significant pain, therefore she was admitted until 05/28/2020, at which time she was discharged home on 1 L of supplemental oxygen and oxycodone. The patient was seen in this ED 2 days ago, on 04/29/2020, with a complaint of right-sided chest pain ever since she woke up from surgery. She was found to be hemodynamically stable and afebrile. Her physical exam found clear lungs. An ECG found sinus tachycardia at 104 bpm and a left axis deviation. Work-up included a CBC, CMP, troponin, CRP, a swab for the SARS-CoV-2 virus, and a CT angiogram of the chest. Her blood work was remarkable for a CRP elevated at 6.3, otherwise, the remainder of her blood work was unremarkable. Her swab for the SARS-CoV-2 virus returned negative[address] CT angiogram of her chest found a very small right-sided pleural effusion, but no pulmonary embolus or other significant findings. Because of her level of pain, the ED Physician did not feel that she was fit for discharge home, and made arrangements for her to be admitted to [facility] (no beds were available at this facility), however, the patient subsequently felt better and elected to go home. The patient now returns to the ED stating that she has continued to have right- sided chest pain radiating to her central chest, and significant dyspnea. She describes the pain as "stabs", except that it is constant. She states that her pain is made worse if she is supine. She has not identified any other modifiers. Her dyspnea is present even if at rest. No recent fever, nausea, vomiting, or diarrhea. She states that she has been constipated, most likely due to the oxycodone that she is now taking at an increased dose of 10 mg every 6 hours. She is not really sure that it helps her pain much. Here in the ED, the patient's initial BP is found to be elevated at 192/81, with a tachycardia of 134 bpm. She is tachypneic at 31 rpm. Is afebrile, saturating in the high 80s on room air, and 98% on 2 L of oxygen per nasal cannula. The patient states that due to a combination of bad knees, poor balance, and sp inal stenosis, she has been falling for the past couple of weeks. Chest Pain Score (Numeric/FACES): 10 - Related Data Allergies/Adverse Reactions: Allergies Allergy/AdvReac Type Severity Reaction Status Date / Time amoxicillin [Amoxicillin] Allergy Intermediate Rash Verified 05/31/20 23:45 codeine Allergy Intermediate Rash Verified 05/31/20 23:45 Exsidzo-Roj-Eri Reductase AdvReac Mild Body Aches Verified 05/31/20 23:45 Inhibitor Home Medications: Home Meds Amitriptyline [Elavil] 10 mg PO 1700 09/27/13 [History] Gemfibrozil 600 mg PO 1700 09/27/13 [History] Levothyroxine Sodium [Synthroid] 150 mcg PO DAILY 09/27/13 [History] ALPRAZolam [Xanax] 0.5 mg PO QID PRN 10/08/15 [History] Omeprazole [priLOSEC OTC] 20 mg PO ASDIRECTED PRN 07/26/17 [History] Denosumab [Prolia] 60 mg .XX ASDIRECTED 11/15/19 [History] Albuterol Sulfate [Albuterol Sulfate Hfa] 1 puff INH ASDIRECTED PRN 05/20/20 [History] oxyCODONE 10 mg PO Q6H PRN 3 Days #24 tablet 05/28/20 [Rx] polyethylene glycoL 3350 [MiraLAX] 17 gm PO DAILY 30 Days #30 packet 05/28/20 [Rx] Past Medical History HEENT History: Reports: Cataract, Epistaxis Cardiovascular History: Reports: Congenital Septal Defect, High Cholesterol, Hypertension Respiratory History: Reports: SOB, Other (See Below) Other Respiratory History: pleurisy Gastrointestinal History: Reports: GERD, Hemorrhoids, Irritable Bowel Syndrome, PUD Other Gastrointestinal History: gastric ulcer Genitourinary History: Reports: Other (See Below) Other Genitourinary History: renal artery stenosis 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 Psychiatric History: Reports: Anxiety, Depression Endocrine/Metabolic History: Reports: Hyperparathyroidism, Hypothyroidism Do You Give Correction Boluses or Sliding Scale: No Hematologic History: Reports: Anemia, B12 Deficiency Other Hematologic History: hypercalcemia Oncologic (Cancer) History: Reports: Other (See Below) Other Oncologic History: abdominal carcinomatosis Dermatologic History: Reports: Other (See Below) Other Dermatologic History: soft tissue disorder - Infectious Disease History Infectious Disease History: Reports: Measles - Past Surgical History HEENT Surgical History: Reports: Cataract Surgery, Naso-Sinus Surgery Other HEENT Surgeries/Procedures: sinus surgery Cardiovascular Surgical History: Reports: Other (See Below) GI Surgical History: Reports: Cholecystectomy, Other (See Below) Other GI Surgeries/Procedures: hemorrhoidectomy Endocrine Surgical History: Reports: Thyroidectomy Neurological Surgical History: Reports: C-Spine, Spinal Fusion Musculoskeletal Surgical History: Reports: Knee Replacement Other Musculoskeletal Surgeries/Procedures:: neck fusion c4 and c5 Social & Family History - Family History Family Medical History: No Pertinent Family History - Tobacco Use Tobacco Use Status *Q: Former Tobacco User Used Tobacco, but Quit: No Second Hand Smoke Exposure: No - Caffeine Use Caffeine Use: Reports: Coffee Other Caffeine Use: tries to have a cup of coffee a day on rare occassion will have a pop. - Recreational Drug Use Recreational Drug Use: No - Living Situation & Occupation Living situation: Reports: , Alone Occupation: Retired H&P Review of Systems - Review of Systems: Review Of Systems: See Below General: Reports: Malaise, Weakness, Fatigue, Decreased Appetite HEENT: Reports: No Symptoms Pulmonary: Reports: Shortness of Breath. Denies: Wheezing, Cough, Sputum Cardiovascular: Reports: No Symptoms, Chest Pain, Dyspnea on Exertion, Orthopnea. Denies: Palpitations, Edema Gastrointestinal: Reports: Abdominal Pain, Constipation. Denies: Nausea, Vomiting Genitourinary: Reports: No Symptoms Musculoskeletal: Reports: No Symptoms Skin: Reports: No Symptoms Psychiatric: Reports: No Symptoms Neurological: Reports: No Symptoms Hematologic/Lymphatic: Reports: No Symptoms Immunologic: Reports: No Symptoms Exam - Exam Exam: See Below - Vital Signs Vital Signs: Last Vital Signs Temp 97.9 F 06/01/20 11:11 Pulse 125 H 06/01/20 11:11 Resp 16 06/01/20 11:11 BP 129/58 L 06/01/20 11:11 Pulse Ox 90 L 06/01/20 11:11 Weight: 165 lb 11.2 oz - Exam Quality Assessment: Supplemental Oxygen (2 L per nasal cannula), DVT Prophylaxis (Lovenox) General: Oriented, Cooperative, Mild Distress, Sedated (Patient has received 2 doses of IV Dilaudid for pain control.) HEENT: Conjunctiva Clear, EACs Clear, Hearing Intact, Mucosa Moist & [place], Pupils Equal, Pupils Reactive Neck: Supple, Trachea Midline. No: JVD Lungs: Decreased Breath Sounds, Crackles (Bilateral bases), Other (Breathing is labored) Cardiovascular: Regular Rhythm, Normal S1, Normal S2, Tachycardia, Systolic Murmur GI/Abdominal Exam: Normal Bowel Sounds, Distended, Tender (Right upper quadrant tender with palpation), Other (Abdomen is firm) (Female) Exam: Deferred Rectal (Female) Exam: Deferred Back Exam: Normal Inspection, Full Range of Motion Extremities: Normal Inspection, Normal Range of Motion, Non-Tender, No Pedal Edema, Normal Capillary Refill Peripheral Pulses: 2+: Radial (L), Radial (R), Dorsalis Pedis (L), Dorsalis Pedis (R) Skin: Warm, Dry, Intact Neuro Extensive - Mental Status: Oriented x3, Normal Mood/Affect, Normal Cognition, Memory Intact, Other (Patient is sedated due to receiving 2 doses of IV Dilaudid due to increased pain) Psychiatric: Normal Affect, Normal Mood, Other (Lethargic) - Patient Data Lab Results Last 24 hrs: Laboratory Results - last 24 hr 05/31/20 05/31/20 Range/Units 21:35 21:35 WBC 13.53 H (3.98-10.04) K/mm3 RBC 4.42 (3.98-5.22) M/mm3 Hgb 12.4 (11.2-15.7) gm/dl Hct 39.0 (34.1-44.9) % MCV 88.2 (79.4-94.8) fl MCH 28.1 (25.6-32.2) pg MCHC 31.8 L (32.2-35.5) g/dl RDW Std Deviation 48.0 H (36.4-46.3) fL Plt Count 412 H (182-369) K/mm3 MPV 10.4 (9.4-12.3) fl Neutrophils % (Manual) 68 H (40-60) % Band Neutrophils % 0 (0-10) % Lymphocytes % (Manual) 16 L (20-40) % Atypical Lymphs % 0 % Monocytes % (Manual) 11 H (2-10) % Eosinophils % (Manual) 5 (0.7-5.8) % Basophils % (Manual) 0 L (0.1-1.2) Platelet Estimate Increased Plt Morphology Comment Normal RBC Morph Comment Normal Sodium 129 L (136-145) mEq/L Potassium 4.0 (3.5-5.1) mEq/L Chloride 93 L (98-107) mEq/L Carbon Dioxide 23 (21-32) mEq/L Anion Gap 17.0 H (5-15) BUN 15 (7-18) mg/dL Creatinine 1.0 (0.55-1.02) mg/dL Est Cr Clr Drug Dosing 29.91 mL/min Estimated GFR (MDRD) 52 (>60) mL/min BUN/Creatinine Ratio 15.0 (14-18) Glucose 164 H (83-115) mg/dL Calcium 8.5 (8.5-10.1) mg/dL Magnesium 1.7 L (1.8-2.4) mg/dl Total Bilirubin 0.5 (0.2-1.0) mg/dL AST 26 (15-37) U/L ALT 65 H (14-59) U/L Alkaline Phosphatase 124 H (46-116) U/L Troponin I < 0.017 (0.00-0.056) ng/mL Total Protein 8.1 (6.4-8.2) g/dl Albumin 3.1 L (3.4-5.0) g/dl Globulin 5.0 gm/dL Albumin/Globulin Ratio 0.6 L (1-2) Result Diagrams: 05/31/20 21:35 05/31/20 21:35 Sepsis Event Note - Evaluation Sepsis Screening Result: No Definite Risk - Focused Exam Vital Signs: Vital Signs Temp Pulse Resp BP Pulse Ox Pulse Ox 06/01/20 11:11 97.9 F 125 H 16 129/58 L 90 L 06/01/20 08:43 91 L 06/01/20 08:06 98.6 F 124 H 20 116/52 L 93 L 06/01/20 04:05 98.2 F 109 H 22 H 113/41 L 92 L - Problem List (1) Abdominal carcinomatosis SNOMED Code(s): 276257124, 872431461 ICD Code: C76.2 - MALIGNANT NEOPLASM OF ABDOMEN Status: Acute Priority: High Current Visit: Yes (2) Atypical chest pain SNOMED Code(s): 602081966 ICD Code: R07.89 - OTHER CHEST PAIN Status: Acute Priority: High Current Visit: Yes (3) Pleural effusion SNOMED Code(s): 09855451 ICD Code: J90 - PLEURAL EFFUSION, NOT ELSEWHERE CLASSIFIED Status: Acute Priority: High Current Visit: Yes Problem List Initiated/Reviewed/Updated: Yes Orders Last 24hrs: Active Orders 24 hr Category Date Time Status Patient Status [ADT] Routine ADT 05/31/20 23:22 Active Bedrest Bathroom Privileges [RC] ASDIRECTED Care 06/01/20 00:55 Active Bladder Scan [RC] ASDIRECTED Care 06/01/20 12:24 Active Cardiac Monitoring [RC] CONTINUOUS Care 06/01/20 08:09 Active Height and Weight [RC] 0400 Care 06/01/20 08:09 Active Intake and Output [RC] 04,16 Care 06/01/20 08:09 Active Notify Provider Consults [RC] ASDIRECTED Care 06/01/20 09:59 Active Oxygen Therapy [RC] PRN Care 06/01/20 08:09 Active Up With Assistance [RC] ASDIRECTED Care 06/01/20 08:09 Active VTE/DVT Education [RC] PER UNIT ROUTINE Care 06/01/20 08:09 Active Vital Signs [RC] Q4H Care 06/01/20 08:09 Active Consult to Case Management/Rod Bending Machine Operator [CONS] Cons 06/01/20 08:08 Active Routine Consult to Hospice [CONS] Routine Cons 06/01/20 12:12 Ordered Consult to Spiritual Care [CONS] Routine Cons 06/01/20 08:09 Active OT Evaluation and Treatment [CONS] Routine Cons 06/01/20 00:56 Active PT Evaluation and Treatment [CONS] Routine Cons 06/01/20 00:56 Active General [Regular Diet] [DIET] Diet 06/01/20 Breakfast Active Acetaminophen [TylenoL] Med 06/01/20 08:09 Active 650 mg PO Q4H PRN Enoxaparin [Lovenox] Med 06/01/20 09:00 Active 30 mg SUBCUT DAILY HYDROmorphone [Dilaudid] Med 06/01/20 00:37 Active 0.5 mg IVPUSH Q30M PRN Magnesium Hydroxide [Milk of Magnesia] Med 06/01/20 08:57 Active 30 ml PO Q4H PRN Ondansetron [Zofran] Med 06/01/20 00:40 Active 4 mg IVPUSH Q6HR PRN Sodium Chloride 0.9% [Saline Flush] Med 06/01/20 08:09 Active 10 ml FLUSH ASDIRECTED PRN Sodium Chloride 0.9% [Saline Flush] Med 06/01/20 09:00 Active 10 ml FLUSH ONETIME PRN oxyCODONE Med 06/01/20 08:44 Active 10 mg PO Q4H PRN Comfort Measures [OM.PC] Routine Oth 06/01/20 12:12 Ordered Saline Lock Insert [OM.PC] Routine Oth 06/01/20 08:09 Ordered Code Status [Resuscitation Status] Routine Resus Stat 06/01/20 00:54 Ordered Medication Orders Acetaminophen (Tylenol) 650 mg PO Q4H PRN PRN Reason: Pain (Mild 1-3)/fever Last Admin: 06/01/20 09:10 Dose: 650 mg Documented by: RADHA Enoxaparin Sodium (Lovenox) 30 mg SUBCUT DAILY JERMAIN Last Admin: 06/01/20 09:12 Dose: 30 mg Documented by: RADHA Hydromorphone HCl (Dilaudid) 0.5 mg IVPUSH Q30M PRN PRN Reason: Pain Last Admin: 06/01/20 11:42 Dose: 0.5 mg Documented by: Admin: 06/01/20 07:51 Dose: 0.5 mg Documented by: Admin: 06/01/20 07:22 Dose: 0.5 mg Documented by: Admin: 06/01/20 04:10 Dose: 0.5 mg Documented by: MINDY Magnesium Hydroxide (Milk Of Magnesia) 30 ml PO Q4H PRN PRN Reason: Constipation Last Admin: 06/01/20 09:12 Dose: 30 ml Documented by: RADHA Ondansetron HCl (Zofran) 4 mg IVPUSH Q6HR PRN PRN Reason: Nausea Oxycodone HCl (Oxycodone) 10 mg PO Q4H PRN PRN Reason: Pain (moderate 4-6) Last Admin: 06/01/20 09:00 Dose: 10 mg Documented by: RADHA Sodium Chloride (Saline Flush) 10 ml FLUSH ASDIRECTED PRN PRN Reason: Keep Vein Open Sodium Chloride (Saline Flush) 10 ml FLUSH ONETIME PRN PRN Reason: IV FLUSH Assessment/Plan Comment:: 06/01/20 * 85-year-old female with 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 * Presenting to the ED with right-sided chest pain and significant dyspnea which she has had since surgery. Also complaining of abdominal pain. * Labs in the ED reveal temp 36.6 Celsius, pulse 134, respiratory rate 31, blood pressure 192/81, pulse ox 98% on oxygen. * Labs drawn in the ED reveal WBC 13.53, platelet count 412, sodium 129, anion gap 17.0, BUN 15, creatinine 1.0, GFR 52, magnesium 1.7, ALT 65, alk phos 124, troponin less than 0.017 * CT angiogram completed 05/29/2020 found a small right pleural effusion, and the patient mentioned that her pain is worse if she lies down. Patient also has a significant amount of pain noted anywhere on her chest even with light palpa tion. * Chest x-ray from today impression: 1. Increasing density within both lung bases. As mentioned on CT abdomen and pelvis, this could represent increasing atelectasis as well as pneumonia. 2. Small bilateral pleural effusions. * CT of abdomen and pelvis impression: 1. Increased mesenteric densities anteriorly. Difficult to exclude mesenteric and metastasis. 2 small bilateral pleural effusions with increasing density within both lung bases either due to prominent atelectasis or pneumonia. 3. Other findings as noted above which are not acute. * Dr. Zuniga consulting, as he is familiar with this case being the surgeon that performed the cholecystectomy. At this time no surgical intervention is warranted as cancer has metastasized. He did speak with the family regarding hospice. Please see consult report. PLAN: Abdominal carcinomatosis * With metastasis as mentioned on CT of abdomen. * Spoke with patient's family at length and they are requesting patient be changed to comfort measures and hospice be consulting. They would like to take her home soon as possible to care for her. Atypical chest pain * Likely due to pleural effusions * Dilaudid and oxycodone for pain control Pleural effusion * Patient is requiring oxygen at 2 to 4 L per nasal cannula Patient did receive 4 g of magnesium today prior to discussion regarding comfort measures. Will not repeat lab values in the a.m. shared services representative consulting to assist with discharge planning comfort cares and patient going home on hospice. Pain meds for comfort Patient will be changed to comfort measures only - Mortality Measure Prognosis:: Poor
[2020-06-01] MEDS ORDERED: LORazepam 0.5 MG Tab PO PRN (15:41)
[2020-06-01] MEDS ORDERED: Glycopyrrolate 0.2 MG/ML SDV IVPUSH PRN (17:28)
[2020-06-01] MEDS: Morphine 10 MG/0.5 ML Oral Syringe PO PRN (19:41)
[2020-06-02] MEDS: Morphine 10 MG/0.5 ML Oral Syringe PO PRN ×4 (01:00→20:53)
[2020-06-02] MEDS: Morphine 2 MG/ML SYRINGE IVPUSH PRN ×3 (02:43→10:40)
--- NOTE | 2020-06-02 07:34 | PCM.PN ---
- General Info Date of Service: 06/02/20 Admission Dx/Problem (Free Text): Admission Diagnosis/Problem Admission Diagnosis/Problem Failure to thrive Functional Status: Reports: Pain Controlled. Denies: Tolerating Diet, Ambulating, Urinating, New Symptoms - Review of Systems General: Reports: Weakness, Fatigue, Malaise. Denies: Fever, Chills HEENT: Reports: No Symptoms. Denies: Headaches, Sore Throat Pulmonary: Reports: Shortness of Breath, Wheezing. Denies: Pleuritic Chest Pain, Cough, Sputum Cardiovascular: Reports: Dyspnea on Exertion. Denies: Chest Pain, Palpitations Gastrointestinal: Reports: Abdominal Pain, Constipation, Decreased Appetite. Denies: Diarrhea, Nausea, Vomiting Genitourinary: Reports: No Symptoms Musculoskeletal: Reports: No Symptoms Skin: Reports: No Symptoms Neurological: Reports: No Symptoms. Denies: Confusion Psychiatric: Reports: No Symptoms - Patient Data Vitals - Most Recent: Last Vital Signs Temp 99.0 F 06/02/20 01:04 Pulse 125 H 06/02/20 01:04 Resp 20 06/02/20 01:04 BP 145/59 H 06/02/20 01:04 Pulse Ox 94 L 06/02/20 06:13 Weight - Most Recent: 165 lb 11.2 oz I&O - Last 24 Hours: Intake & Output 06/01/20 06/02/20 06/02/20 22:59 06:59 14:59 Intake Total 330 100 Output Total 0 Balance 330 100 Med Orders - Current: Current Medications Acetaminophen (Tylenol) 650 mg PO Q4H PRN PRN Reason: Pain (Mild 1-3)/fever Last Admin: 06/01/20 09:10 Dose: 650 mg Documented by: Glycopyrrolate (Robinul) 0.2 mg IVPUSH Q4H PRN PRN Reason: Other Last Admin: 06/01/20 19:38 Dose: 0.2 mg Documented by: Lorazepam (Ativan) 0.5 mg PO Q6H PRN PRN Reason: Anxiety Magnesium Hydroxide (Milk Of Magnesia) 30 ml PO Q4H PRN PRN Reason: Constipation Last Admin: 06/01/20 09:12 Dose: 30 ml Documented by: Morphine Sulfate (Morphine 10 Mg/0.5 Ml Oral Syringe) 15 mg PO Q2H PRN PRN Reason: Pain Last Admin: 06/02/20 01:00 Dose: 15 mg Documented by: Morphine Sulfate (Morphine) 2 mg IVPUSH Q2H PRN PRN Reason: Breakthrough Pain Last Admin: 06/02/20 02:43 Dose: 2 mg Documented by: Ondansetron HCl (Zofran) 4 mg IVPUSH Q6HR PRN PRN Reason: Nausea Sodium Chloride (Saline Flush) 10 ml FLUSH ASDIRECTED PRN PRN Reason: Keep Vein Open Sodium Chloride (Saline Flush) 10 ml FLUSH ONETIME PRN PRN Reason: IV FLUSH Discontinued Medications Enoxaparin Sodium (Lovenox) 30 mg SUBCUT DAILY JERMAIN Last Admin: 06/01/20 09:12 Dose: 30 mg Documented by: Hydromorphone HCl (Dilaudid) 0.5 mg IVPUSH ONETIME ONE Stop: 05/31/20 22:03 Last Admin: 05/31/20 22:07 Dose: 0.5 mg Documented by: Hydromorphone HCl (Dilaudid) 0.5 mg IVPUSH ONETIME ONE Stop: 05/31/20 22:41 Last Admin: 05/31/20 22:45 Dose: 0.5 mg Documented by: Hydromorphone HCl (Dilaudid) 0.5 mg IVPUSH ONETIME ONE Stop: 05/31/20 23:22 Last Admin: 05/31/20 23:29 Dose: 0.5 mg Documented by: Hydromorphone HCl (Dilaudid) 0.5 mg IVPUSH Q30M PRN PRN Reason: Pain Last Admin: 06/01/20 15:07 Dose: 0.5 mg Documented by: Magnesium Sulfate (Magnesium Sulfate In Water Premix) 2 gm in 50 mls @ 25 mls/hr IV ONETIME ONE Stop: 06/01/20 10:59 Last Admin: 06/01/20 09:15 Dose: 25 mls/hr Documented by: Iopamidol (Isovue-300 (61%)) 100 ml IVPUSH ONETIME ONE Stop: 06/01/20 09:01 Last Admin: 06/01/20 15:19 Dose: Not Given Documented by: Oxycodone HCl (Oxycodone) 10 mg PO Q4H PRN PRN Reason: Pain (moderate 4-6) Last Admin: 06/01/20 15:12 Dose: 10 mg Documented by: - Exam Quality Assessment: Supplemental Oxygen (3.5L for comfort ). No: DVT Prophylaxis (comfort care ) General: Oriented, Cooperative, No Acute Distress, Sedated, Lethargic HEENT: Pupils Equal, Pupils Reactive Neck: Supple, Trachea Midline Lungs: Normal Respiratory Effort, Decreased Breath Sounds, Crackles, Rhonchi Cardiovascular: Regular Rate, Regular Rhythm GI/Abdominal Exam: Normal Bowel Sounds, Guarding, Tender (Female) Exam: Deferred Extremities: Normal Inspection, Normal Range of Motion, Non-Tender, Normal Capillary Refill, Pedal Edema Skin: Warm, Dry, Intact Neurological: No New Focal Deficit Psy/Mental Status: Alert Sepsis Event Note - Evaluation Sepsis Screening Result: No Definite Risk - Focused Exam Vital Signs: Vital Signs Temp Pulse Resp BP Pulse Ox Pulse Ox 06/02/20 06:13 94 L 06/02/20 01:04 99.0 F 125 H 20 145/59 H 92 L 06/01/20 21:17 98.1 F 123 H 18 124/50 L 92 L - Problem List & Annotations (1) Need for comfort care SNOMED Code(s): 175723601, 427203347 Code(s): UIP0141 - Status: Acute Current Visit: Yes (2) Encounter for hospice care discussion SNOMED Code(s): 186047673, 213531670 Code(s): Z71.89 - OTHER SPECIFIED COUNSELING Status: Acute Current Visit: Yes (3) Abdominal pain SNOMED Code(s): 20545882 Code(s): R10.9 - UNSPECIFIED ABDOMINAL PAIN Status: Acute Current Visit: Yes (4) End of life care SNOMED Code(s): 341321119, 977722455 Code(s): Z51.5 - ENCOUNTER FOR PALLIATIVE CARE Status: Acute Current Visit: Yes (5) Abdominal carcinomatosis SNOMED Code(s): 685547844, 797927817 Code(s): C76.2 - MALIGNANT NEOPLASM OF ABDOMEN Status: Acute Priority: High Current Visit: Yes (6) Atypical chest pain SNOMED Code(s): 994002280 Code(s): R07.89 - OTHER CHEST PAIN Status: Acute Priority: High Current Visit: Yes (7) Pleural effusion SNOMED Code(s): 30395933 Code(s): J90 - PLEURAL EFFUSION, NOT ELSEWHERE CLASSIFIED Status: Acute Priority: High Current Visit: Yes - Problem List Review Problem List Initiated/Reviewed/Updated: Yes - My Orders Last 24 Hours: My Active Orders 06/01/20 15:39 Morphine [Morphine 10 MG/0.5 ML Oral Syringe] 15 mg PO Q2H PRN 06/01/20 15:40 Morphine 2 mg IVPUSH Q2H PRN 06/01/20 15:41 LORazepam [Ativan] 0.5 mg PO Q6H PRN - Assessment Assessment:: 06/01/20 * 85-year-old female with 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 * Presenting to the ED with right-sided chest pain and significant dyspnea which she has had since surgery. Also complaining of abdominal pain. * Labs in the ED reveal temp 36.6 Celsius, pulse 134, respiratory rate 31, blood pressure 192/81, pulse ox 98% on oxygen. * Labs drawn in the ED reveal WBC 13.53, platelet count 412, sodium 129, anion gap 17.0, BUN 15, creatinine 1.0, GFR 52, magnesium 1.7, ALT 65, alk phos 124, troponin less than 0.017 * CT angiogram completed 05/29/2020 found a small right pleural effusion, and the patient mentioned that her pain is worse if she lies down. Patient also has a significant amount of pain noted anywhere on her chest even with light palpation. * Chest x-ray from today impression: 1. Increasing density within both lung bases. As mentioned on CT abdomen and pelvis, this could represent increasing atelectasis as well as pneumonia. 2. Small bilateral pleural effusions. * CT of abdomen and pelvis impression: 1. Increased mesenteric densities anteriorly. Difficult to exclude mesenteric and metastasis. 2 small bilateral pleural effusions with increasing density within both lung bases either due to prominent atelectasis or pneumonia. 3. Other findings as noted above which are not acute. * Dr. Zuniga consulting, as he is familiar with this case being the surgeon that performed the cholecystectomy. At this time no surgical intervention is warranted as cancer has metastasized. He did speak with the family regarding hospice. Please see consult report. 06/02/2020 * Switched to comfort care last night * Planning on discharging to hospice on 06/03/2020 * Continued abdominal pain * Pain medications adjusted * Discontinued home medications, DVT prophylaxis, lab draws, etc for comfort care * Son at bedside * Family marksmanship instructor in to see patient * Continued labored breathing - Plan Plan:: Abdominal carcinomatosis Abdominal pain Need for comfort care End of life care Encounter for hospice discussion * With metastasis as mentioned on CT of abdomen. * Spoke with patient's family at length and they are requesting patient be changed to comfort measures and hospice be consulting. They would like to take her home soon as possible to care for her. * PO/IV morphine for pain * PO Ativan for anxiety * Glycopyrrolate for secretions * Hospice reports they can admit patient on 06/03/2020 Atypical chest pain * Likely due to pleural effusions * Morphine for pain control Pleural effusion * Patient is requiring oxygen 2 to 4 L per nasal cannula protective services officer consulting to assist with discharge planning comfort cares and patient going home on hospice. Pain meds for comfort Continued DRN/DNI/Comfort care
[2020-06-02] MEDS ORDERED: oxyCODONE 5 MG Tab PO PRN (15:37)
[2020-06-03] MEDS: Morphine 10 MG/0.5 ML Oral Syringe PO PRN (01:11)
[2020-06-03] MEDS: Morphine 2 MG/ML SYRINGE IVPUSH PRN ×3 (02:30→11:36)
[2020-06-03] MEDS ORDERED: LORazepam 2 MG/ML SDV IVPUSH PRN (10:47)
[2020-06-03] MEDS ORDERED: Atropine 1% Ophth Soln 5 ML BOTTLE SL PRN (10:50)
--- NOTE | 2020-06-03 10:59 | PCM.DCSUM1 ---
Discharge Summary - Hospital Course HPI Initial Comments: Mrs. Rodriguez is a very pleasant 85-year-old woman who, medical records indicate, underwent a laparoscopic cholecystectomy on 05/25/2020. A preoperative ultrasound of the right upper quadrant on 05/13/2020 found biliary sludge and ascites. 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 Postoperatively, the patient had hypoxemia and significant pain, therefore she was admitted until 05/28/2020, at which time she was discharged home on 1 L of supplemental oxygen and oxycodone. The patient was seen in this ED 2 days ago, on 04/29/2020, with a complaint of right-sided chest pain ever since she woke up from surgery. She was found to be hemodynamically stable and afebrile. Her physical exam found clear lungs. An ECG found sinus tachycardia at 104 bpm and a left axis deviation. Work-up included a CBC, CMP, troponin, CRP, a swab for the SARS-CoV-2 virus, and a CT angiogram of the chest. Her blood work was remarkable for a CRP elevated at 6.3, otherwise, the remainder of her blood work was unremarkable. Her swab for the SARS-CoV-[address] virus returned negative[address] CT angiogram of her chest found a very small right-sided pleural effusion, but no pulmonary embolus or other significant findings. Because of her level of pain, the ED Physician did not feel that she was fit for discharge home, and made arrangements for her to be admitted to (no beds were available at this facility), however, the patient subsequently felt better and elected to go home. The patient now returns to the ED stating that she has continued to have right-sided chest pain radiating to her central chest, and significant dyspnea. She describes the pain as "stabs", except that it is constant. She states that her pain is made worse if she is supine. She has not identified any other modifiers. Her dyspnea is present even if at rest. No recent fever, nausea, vomiting, or diarrhea. She states that she has been constipated, most likely due to the oxycodone that she is now taking at an increased dose of 10 mg every 6 hours. She is not really sure that it helps her pain much. Here in the ED, the patient's initial BP is found to be elevated at 192/81, with a tachycardia of 134 bpm. She is tachypneic at 31 rpm. Is afebrile, saturating in the high 80s on room air, and 98% on 2 L of oxygen per nasal cannula. The patient states that due to a combination of bad knees, poor balance, and spinal stenosis, she has been falling for the past couple of weeks. Diagnosis: Stroke: No - Discharge Data Discharge Date: 06/03/20 (Admit date: 05/31/2020) Discharge Disposition: DC/Tfer to Hospice - Home 48 Condition: Poor - Referral to Home Health Primary Care Physician: Janene Kuhn NP - Discharge Diagnosis/Problem(s) (1) Need for comfort care SNOMED Code(s): 688349572, 566458773 ICD Code: [id number] - Status: Acute Current Visit: Yes (2) Encounter for hospice care discussion SNOMED Code(s): 031422802, 622035357 ICD Code: Z71.89 - OTHER SPECIFIED COUNSELING Status: Acute Current Visit: Yes (3) Abdominal pain SNOMED Code(s): 40688800 ICD Code: R10.9 - UNSPECIFIED ABDOMINAL PAIN Status: Acute Current Visit: Yes (4) End of life care SNOMED Code(s): 136003099, 978158493 ICD Code: Z51.5 - ENCOUNTER FOR PALLIATIVE CARE Status: Acute Current Visit: Yes (5) Abdominal carcinomatosis SNOMED Code(s): 502638039, 648141267 ICD Code: C76.2 - MALIGNANT NEOPLASM OF ABDOMEN Status: Acute Priority: High Current Visit: Yes (6) Atypical chest pain SNOMED Code(s): 372633661 ICD Code: R07.89 - OTHER CHEST PAIN Status: Acute Priority: High Current Visit: Yes (7) Pleural effusion SNOMED Code(s): 12698654 ICD Code: J90 - PLEURAL EFFUSION, NOT ELSEWHERE CLASSIFIED Status: Acute Priority: High Current Visit: Yes - Patient Summary/Data Consults: Consultations 06/01/20 08:08 Consult to Case Management/Label Paster [CONS] Routine 06/01/20 08:09 Consult to Spiritual Care [CONS] Routine 06/01/20 12:12 Consult to Hospice [CONS] Routine Labs Pending at D/C: None Recommended Follow-up Testing/Procedures: Follow-up with Hospice as directed Hospital Course: Leola was admitted to the medical surgical floor due to right-sided chest pain vijay pain, and dyspnea. She has recently been diagnosed with a high-grade serous [place] of the omentum and peritoneum after a cholecystectomy with Dr. Laura. CT of abdomen and pelvis impression: 1. Increased mesenteric densities anteriorly. Difficult to exclude mesenteric and metastasis. 2 small bilateral pleural effusions with increasing density within both lung bases either due to prominent atelectasis or pneumonia. 3. Other findings as noted above which are not acute. Dr. Laura again consulted and noted that he had nothing more surgically to offer her as the cancer has metastasized. He did discuss hospice with the patient and her family. Both were accepting of this idea and the patient was switched to comfort care on 06/01/2020. Space was consulted and they were in agreement to accept the patient on 06/03/2020 at approximately 1345. Home medications were viewed with only since home oxycodone and milk of magnesia continuing to leave. Both of these were stopped after the patient was noted to have difficulty swallowing. She was then switched to IV and oral morphine, along with oral Ativan for anxiety. IV glycopyrrolate was started for excessive secretions and this was ultimately switched to sublingual atropine. All lab draws and DVT prophylaxis were stopped. Patient and family were requesting oxygen continue for comfort care. The patient's gift shop assistant was into see the patient and offer last rights. Family was at patient's bedside. She did rapidly deteriorate and prior to discharge was noted to be hallucinating and quite obtunded. Discussion was had with patient's family about patient remaining in hospital versus going home to . They ultimately requested that the patient return home has that have been her wishes all along. Ambulance was arranged to transport patient home. Patient was discharged today on comfort custodial to be placed on hospice care on arrival. Prescription was placed for 20 mg sublingual oral morphine every 2 hours as needed for pain, 0.5 mg will liquid Ativan every 6 hours as needed for anxiety and 1 mL ophthalmic atropine sublingual for excessive secretions as needed. - Patient Instructions Diet: Regular Diet as Tolerated Activity: Bedrest Other/Special Instructions: Follow-up with hospice as needed - Discharge Plan *PRESCRIPTION DRUG MONITORING PROGRAM REVIEWED*: Not Applicable *COPY OF PRESCRIPTION DRUG MONITORING REPORT IN PATIENT GUILLERMINA: Not Applicable Prescriptions/Med Rec: LORazepam [Ativan] 0.5 mg PO Q6H PRN #15 ml PRN Reason: Anxiety Atropine 1% [Atropine 1% Ophth Soln] 1 ml SL Q2H PRN #1 bottle PRN Reason: Excess secretions Morphine [Morphine 20 MG/ML Soln] 20 mg PO Q2H PRN #30 ml PRN Reason: Pain Home Medications: Home Meds Atropine 1% [Atropine 1% Ophth Soln] 1 ml SL Q2H PRN #1 bottle 06/03/20 [Rx] LORazepam [Ativan] 0.5 mg PO Q6H PRN #15 ml 06/03/20 [Rx] Morphine [Morphine 20 MG/ML Soln] 20 mg PO Q2H PRN #30 ml 06/03/20 [Rx] Oxygen Therapy Mode: Nasal Cannula Oxygen Flow Rate (L/min): 4 (O2 as needed for comfort care) Referrals: Janene Kuhn NP [Primary Care Provider] - (Please follow up as necessary.) Perfecto Laura MD [Physician] - - Discharge Summary/Plan Comment DC Time >30 min.: Yes (45 mins ) - General Info Date of Service: 06/03/20 Admission Dx/Problem (Free Text: Admission Diagnosis/Problem Admission Diagnosis/Problem Failure to thrive Functional Status: Reports: Pain Controlled, Urinating ([place] in place ). Denies: Tolerating Diet, Ambulating, New Symptoms - Review of Systems Systems Review Comment: Patient is very confused and actively in the process of dying. Therefore review of systems cannot be reliably obtained. - Patient Data Vitals - Most Recent: Last Vital Signs Temp 98.1 F 06/02/20 08:26 Pulse 115 H 06/02/20 21:35 Resp 12 06/02/20 21:35 BP 132/44 L 06/02/20 20:47 Pulse Ox 90 L 06/02/20 21:35 Weight - Most Recent: 165 lb 11.2 oz I&O - Last 24 hours: Intake & Output 06/02/20 06/03/20 06/03/20 22:59 06:59 14:59 Intake Total 100 Output Total 1050 400 Balance -1050 -300 Med Orders - Current: Current Medications Acetaminophen (Tylenol) 650 mg PO Q4H PRN PRN Reason: Pain (Mild 1-3)/fever Last Admin: 06/01/20 09:10 Dose: 650 mg Documented by: Atropine Sulfate (Atropine 1% Ophth Soln) 0 ml SL Q2H PRN PRN Reason: Excess secretions Glycopyrrolate (Robinul) 0.2 mg IVPUSH Q4H PRN PRN Reason: Other Last Admin: 06/01/20 19:38 Dose: 0.2 mg Documented by: Lorazepam (Ativan) 0.5 mg IVPUSH Q6H PRN PRN Reason: Anxiety Morphine Sulfate (Morphine) 2 mg IVPUSH Q2H PRN PRN Reason: Breakthrough Pain Last Admin: 06/03/20 04:58 Dose: 2 mg Documented by: Morphine Sulfate (Morphine 10 Mg/0.5 Ml Oral Syringe) 20 mg PO Q2H PRN PRN Reason: Pain Last Admin: 06/03/20 01:11 Dose: 20 mg Documented by: Ondansetron HCl (Zofran) 4 mg IVPUSH Q6HR PRN PRN Reason: Nausea Oxycodone HCl (Oxycodone) 10 mg PO Q4H PRN PRN Reason: Pain Sodium Chloride (Saline Flush) 10 ml FLUSH ASDIRECTED PRN PRN Reason: Keep Vein Open Sodium Chloride (Saline Flush) 10 ml FLUSH ONETIME PRN PRN Reason: IV FLUSH Discontinued Medications Enoxaparin Sodium (Lovenox) 30 mg SUBCUT DAILY JERMAIN Last Admin: 06/01/20 09:12 Dose: 30 mg Documented by: Hydromorphone HCl (Dilaudid) 0.5 mg IVPUSH ONETIME ONE Stop: 05/31/20 22:03 Last Admin: 05/31/20 22:07 Dose: 0.5 mg Documented by: Hydromorphone HCl (Dilaudid) 0.5 mg IVPUSH ONETIME ONE Stop: 05/31/20 22:41 Last Admin: 05/31/20 22:45 Dose: 0.5 mg Documented by: Hydromorphone HCl (Dilaudid) 0.5 mg IVPUSH ONETIME ONE Stop: 05/31/20 23:22 Last Admin: 05/31/20 23:29 Dose: 0.5 mg Documented by: Hydromorphone HCl (Dilaudid) 0.5 mg IVPUSH Q30M PRN PRN Reason: Pain Last Admin: 06/01/20 15:07 Dose: 0.5 mg Documented by: Magnesium Sulfate (Magnesium Sulfate In Water Premix) 2 gm in 50 mls @ 25 mls/hr IV ONETIME ONE Stop: 06/01/20 10:59 Last Admin: 06/01/20 09:15 Dose: 25 mls/hr Documented by: Iopamidol (Isovue-300 (61%)) 100 ml IVPUSH ONETIME ONE Stop: 06/01/20 09:01 Last Admin: 06/01/20 15:19 Dose: Not Given Documented by: Lorazepam (Ativan) 0.5 mg PO Q6H PRN PRN Reason: Anxiety Magnesium Hydroxide (Milk Of Magnesia) 30 ml PO Q4H PRN PRN Reason: Constipation Last Admin: 06/01/20 09:12 Dose: 30 ml Documented by: Morphine Sulfate (Morphine 10 Mg/0.5 Ml Oral Syringe) 15 mg PO Q2H PRN PRN Reason: Pain Last Admin: 06/02/20 01:00 Dose: 15 mg Documented by: Oxycodone HCl (Oxycodone) 10 mg PO Q4H PRN PRN Reason: Pain (moderate 4-6) Last Admin: 06/01/20 15:12 Dose: 10 mg Documented by: - Exam Quality Assessment: Reports: Supplemental Oxygen, Urine Catheter. Denies: DVT Prophylaxis General: Reports: Cooperative, Mild Distress, Sedated, Obtunded. Denies: Alert, Oriented Neck: Reports: Supple, Trachea Midline Lungs: Reports: Decreased Breath Sounds, Rales, Rhonchi, Wheezing Cardiovascular: Reports: Regular Rate, Regular Rhythm GI/Abdominal Exam: Guarding, Tender, Abnormal Bowel Sounds (Female) Exam: Deferred Rectal (Female) Exam: Deferred Extremities: Normal Inspection, Normal Range of Motion, Non-Tender, No Pedal Edema, Normal Capillary Refill Skin: Reports: Warm, Dry, Intact Psy/Mental Status: Reports: Hallucinations
[2020-06-03 11:16] VITALS: BP 119/39; PULSE 108
[2020-06-03] MEDS ORDERED: LORazepam 0.5 MG Tab ONE (12:15)
[2020-06-03] MEDS ORDERED: LORazepam 0.5 MG Tab STA (12:51)
== END 2020-06-03 13:11 | disposition hospice, home (50) | DRG 187 ==
LOC: JD.ED 21:23 → JD.MS 23:22
PROVIDERS: ADMIT Family Medicine; ATTEND Family Medicine
DX: R07.81 Pleurodynia (principal); R62.7 Adult failure to thrive; C80.0 Disseminated malignant neoplasm, unspecified; Z88.1 Allergy status to other antibiotic agents; Z88.5 Allergy status to narcotic agent; Z88.8 Allergy status to other drugs, medicaments and biological substances; E78.00 Pure hypercholesterolemia, unspecified; J90 Pleural effusion, not elsewhere classified; E87.1 Hypo-osmolality and hyponatremia; M81.0 Age-related osteoporosis without current pathological fracture; J98.11 Atelectasis; R18.8 Other ascites; Z51.5 Encounter for palliative care; E05.90 Thyrotoxicosis, unspecified without thyrotoxic crisis or storm; C76.2 Malignant neoplasm of abdomen; Z90.49 Acquired absence of other specified parts of digestive tract; E78.5 Hyperlipidemia, unspecified; I10 Essential (primary) hypertension; K21.9 Gastro-esophageal reflux disease without esophagitis; F41.9 Anxiety disorder, unspecified; F32.9 Major depressive disorder, single episode, unspecified; E03.9 Hypothyroidism, unspecified; D64.9 Anemia, unspecified; Z98.42 Cataract extraction status, left eye; Z98.41 Cataract extraction status, right eye; Z96.1 Presence of intraocular lens; Z98.890 Other specified postprocedural states; E87.8 Other disorders of electrolyte and fluid balance, not elsewhere classified; Z66 Do not resuscitate; K59.03 Drug induced constipation; T40.2X5A Adverse effect of other opioids, initial encounter; Y92.89 Other specified places as the place of occurrence of the external cause
CPT/HCPCS: 36415; 80053; 83735; 84484; 85007; 85027; 93005; J1170 ×2; 51702; 51798; 71046; 71046-26; 74160; 74160-26; 93010; 94761; 96374; 96376; 99285; 99285-25; A9270-GY; J1650; J2060; J2270; J3475; J3490